=== PATIENT | female | born 1995 | race African-American/Black ===

== ENCOUNTER 2019-11-04 13:43 | Emergency (ER) | payer OTHER ==
--- OUTSIDE RECORDS SUMMARY | 2019-11-04 13:54 | XMS REPORT ---
:1995 Author Organization [facility] t Address [address] Brooks [address] [place] [address] Care Team Providers Name Role Phone Unavailable Unavailable Unavailable Problems This patient has no known problems. Allergies, Adverse Reactions, Alerts This patient has no known allergies or adverse reactions. Medications This patient has no known medications.
--- OUTSIDE RECORDS SUMMARY | 2019-11-04 13:54 | XMS REPORT | Summary of Care ---
:1995 Author Organization [facility] Address [address] [place] [address] Care Team Providers Name Role Phone George Grande CORRECTION OFFICER Primary Care Provider Reason for Visit Reason Comments LAB WORK Encounter Details Date Type Department Care Team Description 02/03/2019 Case Management [facility] Sallie Gamboa FN P LAB WORK [address] [facility], [phone] [facility] floor [phone] [place] [address] Allergies No Known Allergiesdocumented as of this encounter (statuses as of 02/03/2019) Medications Medication Sig Dispensed Refills Start Date End Date Status Iron, Cbn & Take 1 tablet by 30 tablet 3 08/19/2017 Active Ocvb-HV-E99-C-DSS mouth daily. 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 Since the patient is subgroup of A with an anti-A1 antibody, the patient will be transfused with group O RBCs if needed. - For assistance, please contact the Tra nsfusion Medicine service. Multiparity 12/09/2018 12/30/2018 Normal labor 11/04/2017 11/12/2017 40 weeks gestation of 11/04/2017 11/13/19 18 Maternal anemia in , antepartum 11/04/2017 11/12/2017 Liveborn , of mackey , born in hospital by 11/04/2017 11/12/2017 delivery Non-reassuring heart tones complicating , 12/201711/12/2017 antepartum -induced hypertension in third trimester 11/03/2016 05/13/2017 Other and unspecified uterine inertia, antepartum 11/03/2016 05/13/2017 (normal spontaneous vaginal delivery) 11/03/2016 05/13/2017 PROM (premature rupture of membranes) 11/02/2016 Elevated blood pressure 11/02/2016 11/04/2017 Obesity (BMI 30-39.9) 11/02/2016 11/04/2017 High risk , antepartum 10/30/2016 12/31/19 19 Insufficient care, third trimester 10/30/2016 12/30/2018 Polyhydramnios, antepartum complication, third trimester, no t 10/30/2016 11/04/2017 applicable or unspecified fetus documented as of this encounter (statuses as of 02/03/2019) Immunizations Name Administration Dates Next Due Tdap 10/03/2016 documented as of this encounter Social History Tobacco Use Types Packs/Day Years Used Date Never Smoker Smokeless Tobacco: Never Used Alcohol Use Drinks/Week oz/Week Comments No 0 Standard drinks or equivalent 0.0 Estimated Date of Delivery Comments Yes 08/17/2019 Based on last menstr ual period of 11/10/2018 (Exact Date) Sex Assigned at Date Recorded Not on file Job Start Date Occupation Industry Not on file Not on file Not on file Travel History Travel Start Travel End No recent travel history available. documented as of this encounter Last Filed Vital Signs Not on filedocumented in this encounter Plan of Treatment Date Type Specialty Care Team Description 03/23/2019 Recruit Instructor Visit Maternal Medicine 1, [facility] Us g Room Name Type Priority Associated Diagnoses Order S chedule FIRST TRIMESTER LAB Routine Encounter for nuchal 1 Oc currences starting TRISOMY SCRN translucency testing 019 until 03/06/2019 Health Maintenance Due Date Last Done Comments PNEUMOCOCCAL 0-64 YEARS 09/05/2003 COMBINED SERIES (1 of 3 - PCV13) MENINGOCOCCAL B VACCINES (1 09/05/2007 of 2 - Risk Bexsero 2-dose series) HPV VACCINES (1 - Female 2012 3-dose series) INFLUENZA VACCINE 03/01/2019 CHLAMYDIA SCREENING 12/10/2019 12/09/2018, 10/01/2017, 05/13/2017, Additional history exists PAP SMEAR 12/09/2021 12/09/2018 DTaP,Tdap,and Td Vaccines (2 10/03/2026 10/03/2016 - Td) MENINGOCOCCAL VACCINE Aged Out No longer eligible based on patient 's age to complete this topic documented as of this encounter Results Not on filedocumented in this encounter Visit Diagnoses Diagnosis Encounter for nuchal translucency testin g - Primary Other specified screening documented in this encounter Insurance Payer Benefit Plan / Subscriber ID Effective Phone Address T [facility] xxxxxxxxx 2019-Prese [address] BOX Medic aid HEALTH CHOICE - [place] [id number] 1 MANAGED MEDICAID [place], [place]ID [phone] documented as of this encounter Advance Directives Name Relationship Healthcare Agent Communication Relationship Billiesosa Pérez Mother Primary healthcare agent
--- OUTSIDE RECORDS SUMMARY | 2019-11-04 13:54 | XMS REPORT | Summary of Care ---
:1995 Author Organization [facility] Address [address] [place] [address] Care Team Providers Name Role Phone George Grande Tao ADAMSP Primary Care Provider Reason for Visit Reason Comments ULTRASOUND (Routine) Status Reason Specialty Diagnoses / Referred By Referred To Procedures Contact Contact Closed Maternal Diagnoses of child Renetta Nuñez, Medicine Procedures CONSULT MATERNAL MEDICINE ULTRASOUND Preferred Location: Tom COSTELLO [address] [address] Encounter Details Date Type Department Care Team Description 02/03/2019 Consumer Science Teacher Visit [facility] Women's Esteban, Marleny Mishra MD [address] [facility] [id number] [place] [phone] Uterine size-date discrepancy in first t rimester; [facility] [place] [address] [facility] [id number] [place], [place] [phone] Encounter for other screening for geneti c and chromosomal anomalies [place] [address], [facility] Us Room [address] [facility], 3rd [place] [address] Allergies No Known Allergiesdocumented as of this encounter (statuses as of 02/03/2019) Medications Medication Sig Dispensed Refills Start Date End Date Status Iron, Cbn & Take 1 tablet by 30 tablet 3 08/19/2017 Active Cwwt-KY-L54-C-DSS mouth daily. (FERRALET 90 DUAL-IRON DELIVERY) 90-1-12-50 fa-ey-wgh-mg per tablet documented as of this encounter [...] Date Type Specialty Care Team Description 03/23/2019 Consumer Science Teacher Visit Maternal Medicine 1, [facility] Us g Room Health Maintenance Due Date Last Done Comments [...] this topic documented as of this encounter Procedures Procedure Name Priority Date/Time Associated Diagnosis Comme nts FIRST TRIMESTER Routine 02/03/2019 10:25 AM ULTRASOUND CDT documented in this encounter Results FIRST TRIMESTER ULTRASOUND (02/03/2019 10:25 AM CDT) Specimen documented in this encounter Visit Diagnoses Diagnosis Uterine size-date discrepancy in first t rimester Uterine size date discrepancy, antepartu m condition or complication Encounter for other screening for geneti c and chromosomal anomalies documented in this encounter Insurance Payer Benefit Plan / Subscriber ID Effective Phone Address T [facility] xxxxxxxxx 2019-Prese P.O. BOX Medic aid HEALTH CHOICE - HEALTH CHOICE nt [id number] 1 MANAGED MEDICAID [place], [place] [phone] documented as of this encounter Advance Directives Name Relationship Healthcare Agent Communication Relationship Marlin Elisa Mother Primary healthcare agent
--- OUTSIDE RECORDS SUMMARY | 2019-11-04 13:54 | XMS REPORT | Summary of Care ---
:1995 Author Organization [facility] Address [address] [place] [address] Care Team Providers Name Role Phone George Grande [facility] Primary Care Provider Reason for Visit Reason Comments LAB WORK Encounter Details Date Type Department Care Team Description 02/03/2019 Wet Room Supervisor [facility] [address] [facility] [id number] [place], [place] [phone] Encounter for nuchal [facility] [place] [address] [facility] [id number] [place] [phone] translucency [facility], [facility] [address] [facility], 7th [place] [address] Allergies No Known Allergiesdocumented as of this encounter (statuses as of 02/03/2019) Medications Medication Sig Dispensed Refills Start Date End Date Status Iron, Cbn & Take 1 tablet by 30 tablet 3 08/19/2017 Active Sabj-GN-D75-C-DSS mouth daily. (FERRALET 90 DUAL-IRON DELIVERY) 90-1-12-50 nm-dn-iaa-mg per tablet documented as of this encounter [...] anemia in , antepartum 11/04/2017 11/12/2017 Liveborn infant, of mackey , born in hospital by [...] Date Type Specialty Care Team Description 03/23/2019 Wet Room Supervisor Visit Maternal Medicine 1, [facility] Us g Room Health Maintenance Due Date [...] Diagnosis Encounter for nuchal translucency testin g Other specified screening documented in this encounter Insurance Payer Benefit Plan / Subscriber ID Effective Phone Address T ype [facility] xxxxxxxxx 2019-Prese P.O. BOX Medic aid HEALTH CHOICE - HEALTH CHOICE nt [id number] 1 MANAGED MEDICAID [place], [place] [phone] documented as of this encounter Advance Directives Name Relationship Healthcare Agent Communication Relationship Lasosa Pérez Mother Primary healthcare agent
--- OUTSIDE RECORDS SUMMARY | 2019-11-04 13:54 | XMS REPORT | Summary of Care ---
:[address] [facility] Address [address] [place] [address] Care Team Providers Name Role Phone George Grande [facility] Primary Care Provider Reason for Visit Reason Comments Assessment Encounter Details Date Type Department Care Team Description 03/04/2019 Telephone [facility] George Huthcison [facility] Assessment [address] [facility] [address] [place] [address] [place] [address] [phone] Allergies No Known Allergiesdocumented as of this encounter (statuses as of 03/04/2019) Medications Medication Sig Dispensed Refills Start Date End Date Status Iron, Cbn & Take 1 tablet by 30 tablet 3 08/19/2017 Active Npna-OO-Y92-C-DSS mouth daily. (FERRALET 90 DUAL-IRON DELIVERY) 90-1-12-50 zl-tj-qgh-mg per tablet documented as of this encounter (statuses as of 03/04/2019) Active Problems Problem Noted Date Trichomoniasis 12/11/2018 Previous delivery affecting , antepa rtum 12/09/2018 Sickle cell trait 12/09/2018 of child 12/09/2018 Obesity in 12/09/2018 Estimated Date of Delivery Comments Yes 08/17/2019 Based on last menstr ual period of 11/10/2018 (Exact Date) documented as of this encounter (statuses as of 03/04/2019) Resolved Problems Problem Noted Date Resolved Date [...] as of this encounter (statuses as of 03/04/2019) Immunizations Name Administration Dates Next Due Tdap [...] Date Type Specialty Care Team Description 03/23/2019 Painter Set Visit Maternal Medicine 1, [facility] Us g Room Health Maintenance Due Date Last Done Comments PNEUMOCOCCAL 0-64 YEARS 09/05/2003 COMBINED SERIES (1 of 3 - PCV13) MENINGOCOCCAL B VACCINES (1 09/05/2007 of 2 - Risk Bexsero 2-dose series) HPV VACCINES (1 - Female 2012 3-dose series) INFLUENZA VACCINE (#1) 2019 CHLAMYDIA SCREENING 12/10/2019 12/09/2018, 10/01/2017, 05/13/2017, Additional history exists PAP SMEAR 12/09/2021 12/09/2018 DTaP,Tdap,and Td Vaccines (2 10/03/2026 10/03/2016 - Td) MENINGOCOCCAL VACCINE Aged Out No longer eligible based on patient 's age to complete this topic documented as of this encounter Results Not on filedocumented in this encounter Insurance Payer Benefit Plan / Subscriber ID Effective Phone Address T [facility] xxxxxxxxx 2019-Prese P.O. BOX Medic aid HEALTH CHOICE - HEALTH CHOICE nt [id number] 1 MANAGED MEDICAID [place], [place]ID [phone] documented as of this encounter Advance Directives Name Relationship Healthcare Agent Communication Relationship Reynaaminah Pérez Mother Primary healthcare agent
--- OUTSIDE RECORDS SUMMARY | 2019-11-04 13:55 | XMS REPORT | Summary of Care ---
:1995 Author Organization [facility] [place] Address [address] [place] [address] Care Team Providers Name Role Phone George Grande Primary Care Provider Reason for Visit Reason Comments Care Encounter Details Date Type Department Care Team Description 08/10/2019 Routine [facility]- George Grande upervision of high risk in third trimester (Primary Dx); Visit ÁNGEL Marina Previous delivery affecting pre gnancy, antepartum; [address] (vaginal after ) trial; [place], [place] Nadiya Sickle cell trait; [address] [place], [place] GBS (group B Streptococcus c arrier), +RV culture, currently ; [phone] [address] of child; [phone] Multiparity; [phone] Obesity in preg mundo (Fax) Allergies No Known Allergiesdocumented as of this encounter (statuses as of 08/10/2019) Medications Medication Sig Dispensed Refills Start Date End Date Status Iron, Cbn & Take 1 tablet by 30 tablet 3 08/19/2017 Active Fcyr-RQ-O88-C-DSS mouth daily. (FERRALET 90 DUAL-IRON DELIVERY) 90-1-12-50 br-ca-jma-mg per tablet ferrous sulfate 325 mg Take 1 tablet by 60 tablet 3 07/24/2019 Active (65 mg iron) mouth 2 (two) tabletIndications: times daily. Anemia of mother in , condition ascorbic acid, vitamin Take 1 tablet by 90 tablet 3 07/24/2019 Active C, 500 mg mouth 3 (three) tabletIndications: times daily. Anemia of mother in , condition documented as of this encounter (statuses as of 08/10/2019) Active Problems Problem Noted Date GBS (group B Streptococcus carrier), +RV culture, curr ently 07/24/2019 Overview: Address in labor and delivery. Desires (vaginal after ) trial 05/31 Type A blood, Rh positive 05/11/2019 Trichomoniasis 12/11/2018 Previous delivery affecting , antepa rtum 12/09/2018 Sickle cell trait 12/09/2018 of child 12/09/2018 Multiparity 12/09/2018 Obesity in 12/09/2018 Supervision of high risk in third trimester 10/30/2016 Estimated Date of Delivery Comments Yes 08/17/2019 Based on last menstr ual period of 11/10/2018 (Exact Date) documented as of this encounter (statuses as of 08/10/2019) Resolved Problems Problem Noted Date Resolved Date [...] please contact the [facility] service. Normal labor 11/04/2017 11/12/2017 40 weeks gestation [...] 11/02/2016 11/04/2017 Obesity (BMI 30-39.9) 11/02/2016 11/04/2017 Insufficient care, third trimester 10/30/2016 12/30/2018 Polyhydramnios, antepartum complication, third trimester, no t 10/30/2016 11/04/2017 applicable or unspecified fetus documented as of this encounter (statuses as of 08/10/2019) Immunizations Name Administration Dates Next Due Tdap 05/25/2019, 10/03/2016 documented as of this encounter Social [...] of this encounter Last Filed Vital Signs Vital Sign Reading Time Taken Comments Blood Pressure 117/78 08/10/2019 3:02 PM DENSITOMETER READER Pulse 96 08/10/2019 3:02 PM DENSITOMETER READER Temperature 36.6 C (97.9 F) 08/10/2019 3:02 PM DENSITOMETER READER Respiratory Rate 16 08/10/2019 3:02 PM DENSITOMETER READER Oxygen Saturation - - Inhaled Oxygen Concentration - - Weight 115.7 kg (255 lb 2 oz) 08/10/2019 3:02 PM DENSITOMETER READER Height 167.6 cm (5' 6") 08/10/2019 3:02 PM DENSITOMETER READER Body Mass Index 41.18 08/10/2019 3:02 PM DENSITOMETER READER documented in this encounter Progress Notes George Grande R, MACHINE UMBRELLA TIPPER - 08/10/2019 2:15 PM CST Chief complaint: Chief Complaint Patient presents with Care HPI CC: Follow Up Visit Karen Pérez is a 23 year old, , Black or female. Patient's last menstrual period was 11/10/2018 (exact date). She is 39w0d with an intrauterine . Her estimateddate of delivery is 08/17/2019, by Last Menstrual Period. She has no complaints today. She reports +FM and denies contractions, LOF and bleeding today. Reviewed OB/ER, PIH, labor and movement precautions. Encouraged patient to go to [facility] for any signs and symptoms of labor (regular contractions, LOF, vaginal bleeding or decrease movement. Patient denies current or past physical, sexual or emotional abuse. 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 Sickle cell anemia Sicle Cell Trait Family History Problem Relation Age of Onset Asthma Mother Asthma Sister Asthma Maternal Aunt Asthma Maternal Uncle Diabetes Maternal Uncle Asthma Paternal Aunt Asthma Paternal Uncle Asthma Maternal Grandmother Diabetes Maternal Grandmother Asthma Maternal Grandfather Arthritis NoFHx defects NoFHx Breast Cancer NoFHx Colon Cancer NoFHx Ovarian Cancer NoFHx Uterine Cancer NoFHx Cancer NoFHx Depression NoFHx Genetic NoFHx Heart NoFHx High cholesterol NoFHx Hypertension NoFHx Mental retardation NoFHx Neurological NoFHx Osteoporosis NoFHx Psychiatry NoFHx Family Status Relation Name Status Mo Alive Sis Alive Fa (Not Specified) unknown history Bro Alive MAunt (Not Specified) MUnc (Not Specified) PAunt (Not Specified) PUnc (Not Specified) MGMo Alive MGFa Alive NoFHx (Not Specified) Past Surgical History: Procedure Laterality Date SECTION N/A 11/04/2017 Surgeon: Bonita Leiva MD; Location: [facility] Labor and Delivery OR Location [place] ANESTH,[facility] AREA SURGERY Social History Socioeconomic History Marital status: Single Spouse name: Not on file Number of children: Not on file Years of education: Not on file Highest education level: Not on file Occupational History Occupation: student Social Needs Financial resource strain: Not on file Food insecurity: Worry: Not on file Inability: Not on file Transportation needs: Medical: Not on file Non-medical: Not on file Tobacco Use Smoking status: Never Smoker Smokeless tobacco: Never Used Substance and Sexual Activity Alcohol use: No Alcohol/week: 0.0 standard drinks Drug use: No Sexual activity: Yes Partners: Male control/protection: None Comment: last sexual intercourse 11/30/2018 Lifestyle Physical activity: Days per week: Not on file Minutes per session: Not on file Stress: Not on file Relationships Social connections: Talks on phone: Not on file Gets together: Not on file Attends scientologist service: Not on file Active member of club or organization: Not on file Attends meetings of clubs or organizations: Not on file Relationship status: Not on file Intimate partner violence: Fear of current or ex partner: Not on file Emotionally abused: Not on file Physically abused: Not on file Forced sexual activity: Not on file Other Topics Concern Service Not Asked Blood Transfusions Not Asked Caffeine Concern Not Asked Occupational Exposure Not Asked Hobby Hazards Not Asked Sleep Concern Not Asked Stress Concern Not Asked Weight Concern Not Asked Special Diet Not Asked Back Care Not Asked Exercise Not Asked Bike Helmet Not Asked Seat Belt Yes Self-Exams Not Asked Social History Narrative Lives with mom. No domestic abuse or violence. No cats. Nondenominational: Gnosticist Social History Substance and Sexual Activity Sexual Activity Yes Partners: Male control/protection: None Comment: last sexual intercourse 11/30/2018 Labs Labs are pending. Radiology No new radiology. Allergies Karen has No Known Allergies. Medications Karen has a current medication list which includes the following prescription(s): ascorbic acid (vitamin c), ferrous sulfate, and iron, cbn & micd-lm-h14-c-dss. Review of Systems Eyes: Negative for visual disturbance. Cardiovascular: Negative for leg swelling. Gastrointestinal: Negative for abdominal pain, nausea and vomiting. Genitourinary: Negative for vaginal bleeding, vaginal discharge and pelvic pain. Neurological: Negative for headaches. BP 117/78 (BP Location: Right arm, Patient Position: Sitting, BP CUFF SIZE: Adult Medium) | Pulse 96 | Temp 36.6 C (97.9 F) (Oral) | Resp 16 | Ht 5' 6" (1.676 m) | Wt 255 lb 2 oz (115.7 kg) |LMP 11/10/2018 (Exact Date) | BMI 41.18 kg/m Pregravid BMI: 39.4 Physical Exam PHYSICAL: General Exam: Neurological: Normal Abdomen: Normal Extremities: Normal Pelvic Exam: Uterus: 40cm Weeks Assessment/Plan Supervision of high risk in third trimester (primary encounter diagnosis) Previous delivery affecting , antepartum Desires (vaginal after ) trial Sickle cell trait GBS (group B Streptococcus carrier), +RV culture, currently of child Multiparity Comment: Routine Visit Plan: POCT URINALYSIS W SPECIFIC GRAVITY Denies zika virus risk, signs and symptoms such as fever,rash,joint pain, conjunctivitis (red eyes), muscle pain, headaches; outside [place] travel to areas affected by zika, and FOB exposure to zika.Educated on use of mosquito repellent. Obesity in Comment: See BMI Plan: Patient encouraged to limit weight gain and sensible diet. Return to clinic in 3 weeks for PP visit. Discussed treatment options. Medications as ordered. Reviewed patient instructions and provided printed copy. This visit did not involve counseling and coordination that comprised more than 50% of the visit time. ÁNGEL Gonzalez 08/10/2019 3:29 PM ITOMETER READER documented in this encounter Plan of Treatment Health Maintenance Due Date Last Done Comments WELL CARE VISIT: -09/04/2009 YEARS (yearly) HPV VACCINES (1 - Female 06/12/2020 Postpon ed from 2-dose series) 2008 (Preg nant or ) MENINGOCOCCAL B VACCINES (1 06/21/2020 Post poned from of 2 - Risk Bexsero 2-dose 09/04 ( or series) ) INFLUENZA VACCINE (#1) 2020 Postponed from 03/01/2019 (Refu sed) CHLAMYDIA SCREENING 07/22/2020 07/22/2019, 12/09/2018, 10/01/2017, Additional history exists PAP SMEAR 12/09/2021 12/09/2018 DTaP,Tdap,and Td Vaccines 05/25/2029 05/25/2019, 10/03/2016 (3 - Td) MENINGOCOCCAL VACCINE Aged Out No longer eligible based on patient 's age to complete this topic PNEUMOCOCCAL 0-64 YEARS Aged Out No longe r eligible COMBINED SERIES based on patient 's age to complete this topic documented as of this encounter Procedures Procedure Name Priority Date/Time Associated Diagnosis Comme nts POCT URINALYSIS Routine 08/10/2019 3:06 PM Supervision of [facility] h Results for this DENSITOMETER READER risk in procedure are in third trimester the results section. documented in this encounter Results POCT URINALYSIS W SPECIFIC GRAVITY (08/10/2019 3:06 PM DENSITOMETER READER) Pathologist Sig nature POCT U SP GRAV . 1.005 - 1.025 mg/dl POCT PH U . 5 - 8 mg/dl POCT U LEUK EST . Negative - Negative POCT U NIT . Negative - Negative POCT U PROT trace Negative - Negative POCT U GLU neg Negative - Negative POCT U KETONE . Negative - Negative POCT U UROBILI . 0.2 - 1 mg/dl POCT U BILI . Negative - Negative POCT U BLD . Negative - Negative POCT U COLOR . POCT U APPEAR . Specimen Urine - URINE, CLEAN CATCH documented in this encounter Visit Diagnoses Diagnosis Supervision of high risk in ird trimester - Primary Unspecified high-risk Previous delivery affecting pre gnancy, antepartum Previous delivery, antepartum c ondition or complication Desires (vaginal after dejah an) trial Previous delivery, unspecified as to episode of care or not applicable Sickle cell trait Sickle-cell trait GBS (group B Streptococcus carrier), +RV culture, currently Supervision of other high-risk of child Family disruption due to of family member Multiparity Obesity in Obesity complicating , childbir , or the puerperium, unspecified as to episode of care or not applicable documented in this encounter Insurance Payer Benefit Plan / Subscriber ID Effective Phone Address [facility] xxxxxxxxx 2019-Mary Alice [address] Medic aid HEALTH CHOICE - [place] [id number] 1 MANAGED MEDICAID [place], [place] MED[place]ID [phone] documented as of this encounter Advance Directives Name Relationship Healthcare Agent Communication Relationship Billiesosa Pérez Mother Primary healthcare agent
--- OUTSIDE RECORDS SUMMARY | 2019-11-04 13:55 | XMS REPORT | Summary of Care ---
:1995 Author Organization [facility] [employer] Address [address] [place] [address] Care Team Providers Name Role Phone George Grande Primary Care Provider Reason for Visit Reason Comments Care Encounter Details Date Type Department Care Team Description 08/10/2019 Routine [facility]- George Grande upervision of high risk in third trimester (Primary Dx); Visit ÁNGEL Marina Previous delivery affecting pre gnancy, antepartum; [address] Desires (vaginal after ) trial; [place], [place] Nadiya Sickle cell trait; [address] [place], [place] GBS (group B Streptococcus c arrier), +RV culture, currently ; [phone] [address] of child; [phone] Multiparity; [phone] Obesity in preg mundo (Fax) Allergies No Known Allergiesdocumented as of this encounter (statuses as of 08/11/2019) Medications Medication Sig Dispensed Refills Start Date End Date Status Iron, Cbn & Take 1 tablet by 30 tablet 3 08/19/2017 Suspended Azty-GF-X23-C-DSS mouth daily. (FERRALET 90 DUAL-IRON DELIVERY) 90-1-12-50 hg-lg-mbn-mg per tablet Additional information ferrous sulfate 325 mg (65 mg Take 1 tablet by 60 tablet 3 Suspended iron) tabletIndications: Anemia mouth 2 (two) times of mother in , daily. condition Additional information ascorbic acid, vitamin C, 500 Take 1 tablet by 90 tablet 3 Suspended mg tabletIndications: Anemia of mouth 3 (three) mother in , times daily. condition Additional information documented as of this encounter (statuses as of 08/11/2019) Active Problems Problem Noted Date 39 weeks gestation of 08/10/2019 GBS (group B Streptococcus carrier), +RV culture, curr ently 07/24/2019 Overview: Address in labor and delivery. Desires (vaginal after ) trial 05/31 Type A blood, Rh positive 05/11/2019 Trichomoniasis 12/11/2018 Previous delivery affecting , antepa rtum 12/09/2018 Sickle cell trait 12/09/2018 of child 12/09/2018 Multiparity 12/09/2018 Obesity in 12/09/2018 Supervision of high risk in third trimester 10/30/2016 Comments Yes documented as of this encounter (statuses as of 08/11/2019) Resolved Problems Problem Noted Date Resolved Date [...] as of this encounter (statuses as of 08/11/2019) Immunizations Name Administration Dates Next Due Tdap 05/25/2019, 10/03/2016 documented as of this encounter Social History Tobacco Use Types Packs/Day Years Used Date Never Smoker Smokeless Tobacco: Never Used Alcohol Use Drinks/Week oz/Week Comments No 0 Standard drinks or equivalent 0.0 Comments Yes Sex Assigned at Date Recorded Not on file Job Start Date Occupation Industry Not on file Not on file Not on file Travel History Travel Start Travel End No recent travel history available. documented as of this encounter Last Filed Vital Signs Vital Sign Reading Time Taken Comments Blood Pressure 117/78 08/10/2019 3:02 PM VP PROJECT Pulse 96 08/10/2019 3:02 PM VP PROJECT Temperature 36.6 C (97.9 F) 08/10/2019 3:02 PM VP PROJECT Respiratory Rate 16 08/10/2019 3:02 PM VP PROJECT Oxygen Saturation - - Inhaled Oxygen Concentration - - Weight 115.7 kg (255 lb 2 oz) 08/10/2019 3:02 PM VP PROJECT Height 167.6 cm (5' 6") 08/10/2019 3:02 PM VP PROJECT Body Mass Index 41.18 08/10/2019 3:02 PM VP PROJECT documented in this encounter Progress Notes George Grande, ÁNGEL - 08/10/2019 2:15 PM CST Chief complaint: [...] movement precautions. Encouraged patient to go to [facility] for any signs and symptoms of labor [...] oz (3.827 kg) M SEC EPI DEC 1 Term 11/02/16 38w3d 7 lb 13.2 oz [...] N/A 11/04/2017 Surgeon: Bonita Leiva MD; Location: [facility] Labor and Delivery OR Location [place] ANESTH,KNEE AREA SURGERY Social History Socioeconomic History [...] file Gets together: Not on file Attends muslim service: Not on file Active member of [...] No domestic abuse or violence. No cats. Orthodoxy: Rastafarian Social History Substance and Sexual Activity Sexual Activity Yes Partners: Male control/protection: None Comment: last sexual intercourse 11/30/2018 Labs Labs are pending. Radiology No new radiology. Allergies Karen has No Known Allergies. Medications Karen has a current medication list which includes the following prescription(s): ascorbic acid (vitamin c), ferrous sulfate, and iron, cbn & qhtd-yk-c43-c-dss. Review of Systems Eyes: Negative for visual [...] visit time. ÁNGEL Gonzalez 08/10/2019 3:29 PM PROJECT documented in this encounter Plan of Treatment [...] URINALYSIS Routine 08/10/2019 3:06 PM Supervision of maya orellana Results for this VP PROJECT risk in procedure are in third trimester the results section. documented in this encounter Results POCT URINALYSIS W SPECIFIC GRAVITY (08/10/2019 3:06 PM VP PROJECT) Pathologist Sig nature POCT U SP GRAV [...] Diagnoses Diagnosis Supervision of high risk in th ird trimester - Primary Unspecified high-risk Previous [...] Multiparity Obesity in Obesity complicating , childbir th, or the puerperium, unspecified as to episode of care or not applicable documented in this encounter Insurance Payer Benefit Plan / Subscriber ID Effective Phone Address T e [facility] xxxxxxxxx 2019-Mary Alice [address] Medic aid HEALTH CHOICE - HEALTH CHOICE [id number] 1 MANAGED MEDICAID [place], [place] MED[place]ID [phone] documented as of this encounter Advance Directives Name Relationship Healthcare Agent Communication Relationship Lasosa Pérez Mother Primary healthcare agent
--- OUTSIDE RECORDS SUMMARY | 2019-11-04 13:55 | XMS REPORT | Summary of Care ---
:1995 Author Organization [facility] [employer] Address [address] [place] [address] Care Team Providers Name Role Phone George Grande Primary Care Provider Reason for Visit Reason Comments Care Encounter Details Date Type Department Care Team Description 08/10/2019 Routine [facility]- George Grande upervision of high risk in third trimester (Primary Dx); Visit ÁNGEL Marina Previous delivery affecting pre gnancy, antepartum; [address] Desires (vaginal after ) trial; [place], [place] Nadi[place] Sickle cell trait; [address] [place], [place] GBS (group B Streptococcus c arrier), +RV culture, currently ; [phone] [address] of child; [phone] Multiparity; [phone] Obesity in preg mundo (Fax) Allergies No Known Allergiesdocumented as of this encounter (statuses as of 08/11/2019) Medications Medication Sig Dispensed Refills Start Date End Date Status Iron, Cbn & Take 1 tablet by 30 tablet 3 08/19/2017 Suspended Lajz-HF-V36-C-DSS mouth daily. (FERRALET 90 DUAL-IRON DELIVERY) 90-1-12-50 rr-we-yld-mg per tablet Additional information ferrous sulfate 325 [...] Comments Blood Pressure 117/78 08/10/2019 3:02 PM MEAT APPRENTICE Pulse 96 08/10/2019 3:02 PM MEAT APPRENTICE Temperature 36.6 C (97.9 F) 08/10/2019 3:02 PM MEAT APPRENTICE Respiratory Rate 16 08/10/2019 3:02 PM MEAT APPRENTICE Oxygen Saturation - - Inhaled Oxygen Concentration - - Weight 115.7 kg (255 lb 2 oz) 08/10/2019 3:02 PM MEAT APPRENTICE Height 167.6 cm (5' 6") 08/10/2019 3:02 PM MEAT APPRENTICE Body Mass Index 41.18 08/10/2019 3:02 PM MEAT APPRENTICE documented in this encounter Progress Notes George [...] movement precautions. Encouraged patient to go to [facility] for any signs and symptoms of [...] N/A 11/04/2017 Surgeon: Bonita Leiva MD; Location: [facility] Labor and Delivery OR Location [place] [facility]EST[place],[facility] [facility]A SURGERY Social History Socioeconomic History [...] file Gets together: Not on file Attends congregational service: Not on file Active member of [...] No domestic abuse or violence. No cats. Mandaeism: Taoism Social History Substance and Sexual Activity Sexual Activity Yes Partners: Male control/protection: None Comment: last sexual intercourse 11/30/2018 Labs Labs are pending. Radiology No new radiology. Allergies Karen has No Known Allergies. Medications Karen has a current medication list which includes the following prescription(s): ascorbic acid (vitamin c), ferrous sulfate, and iron, cbn & mdqw-ij-l34-c-dss. Review of Systems Eyes: Negative for visual [...] visit time. ÁNGEL Gonzalez 08/10/2019 3:29 PM APPRENTICE documented in this encounter Plan of Treatment [...] Supervision of maya orellana Results for this MEAT APPRENTICE risk in procedure are in third trimester the results section. documented in this encounter Results POCT URINALYSIS W SPECIFIC GRAVITY (08/10/2019 3:06 PM MEAT APPRENTICE) Pathologist Sig nature POCT U SP GRAV [...] Subscriber ID Effective Phone Address T e [facility] xxxxxxxxx 2019-Mary [address] Medic aid HEALTH CHOICE - HEALTH CHOICE [id number] 1 MANAGED MEDICAID [place], [place] [phone] documented as of this encounter Advance Directives Name Relationship Healthcare Agent Communication Relationship Lasosa Pérez Mother Primary healthcare agent
--- OUTSIDE RECORDS SUMMARY | 2019-11-04 13:56 | XMS REPORT | Summary of Care ---
:1995 Author Organization [facility] Address [address] [place] [id number] Care Team Providers Name Role Phone George Grande VOICE NETWORK ADMINISTRATOR Primary Care Provider Reason for Visit Reason Comments Care Encounter Details Date Type Department Care Team Description 07/22/2019 Routine [facility]- George Grande upervision of high risk in third trimester (Primary Dx); Visit ÁNGEL Marina Previous delivery affecting pre gnancy, antepartum; [address] Desires (vaginal after ) trial; [place], [place]; [address] [place], [place] Obesity in [phone] Allergies No Known Allergiesdocumented as of this encounter (statuses as of 07/22/2019) Medications Medication Sig Dispensed Refills Start Date End Date Status Iron, Cbn & Take 1 tablet by 30 tablet 3 08/19/2017 Active [id number]-C-DSS mouth daily. (FERRALET 90 DUAL-IRON DELIVERY) 90-1-12-50 hr-ra-lyf-mg per tablet documented as of this encounter (statuses as of 07/22/2019) Active Problems Problem Noted Date Desires (vaginal after ) trial 05/31 Type [...] as of this encounter (statuses as of 07/22/2019) Resolved Problems Problem Noted Date Resolved Date [...] as of this encounter (statuses as of 07/22/2019) Immunizations Name Administration Dates Next Due Tdap [...] Sign Reading Time Taken Comments Blood Pressure 126/80 07/22/2019 11:07 AM ROLLED MATERIALS WORKER Pulse 96 07/22/2019 11:07 AM ROLLED MATERIALS WORKER Temperature 36.3 C (97.4 F) 07/22/2019 11:07 AM ROLLED MATERIALS WORKER Respiratory Rate 16 07/22/2019 11:07 AM ROLLED MATERIALS WORKER Oxygen Saturation - - Inhaled Oxygen Concentration - - Weight 114.3 kg (252 lb 1 oz) 07/22/2019 11:07 AM ROLLED MATERIALS WORKER Height 167.6 cm (5' 6") 07/22/2019 11:07 AM ROLLED MATERIALS WORKER Body Mass Index 40.68 07/22/2019 11:07 AM ROLLED MATERIALS WORKER documented in this encounter Progress Notes George Grande FNP - 07/22/2019 11:00 AM CST Chief complaint: Chief Complaint Patient presents with Care HPI CC: Follow Up Visit Karen Pérez is a 23 year old, , Black or female. Patient's last menstrual period was 11/10/2018 (exact date). She is 36w2d with an intrauterine . Her estimateddate of delivery is 08/17/2019, by Last Menstrual Period. She has no complaints today. She reports +FM and denies contractions, LOF and bleeding today. Patient denies current or past physical, sexual [...] N/A 11/04/2017 Surgeon: Bonita Leiva MD; Location: [facility] Labor and Delivery OR Location [place] [facility] Social History Socioeconomic History [...] file Gets together: Not on file Attends restorationist service: Not on file Active member of [...] No domestic abuse or violence. No cats. Scientologist: Jew Social History Substance and Sexual Activity Sexual Activity Yes Partners: Male control/protection: None Comment: last sexual intercourse 11/30/2018 Labs Labs are pending. Radiology No new radiology. Allergies Karen has No Known Allergies. Medications Karen has a current medication list which includes the following prescription(s): iron, cbn & fert-as-c72-c-dss. Review of Systems Eyes: Negative for visual disturbance. Cardiovascular: Negative for leg swelling. Gastrointestinal: Negative for abdominal pain, nausea and vomiting. Genitourinary: Negative for vaginal bleeding, vaginal discharge and pelvic pain. Neurological: Negative for headaches. BP 126/80 (BP Location: Right arm, Patient Position: Sitting, BP CUFF SIZE: Adult Medium) | Pulse 96 | Temp 36.3 C (97.4 F) (Oral) | Resp 16 | Ht 5' 6" (1.676 m) | Wt 252 lb 1 oz (114.3 kg) |LMP 11/10/2018 (Exact Date) | BMI 40.68 kg/m Pregravid BMI: 39.4 Physical Exam PHYSICAL: General Exam: Neurological: Normal Abdomen: Normal Extremities: Normal Pelvic Exam: Uterus: 37cm Weeks Assessment/Plan Supervision of high risk in third trimester (primary encounter diagnosis) Previous delivery affecting , antepartum Desires (vaginal after ) trial Multiparity Comment: Routine Visit Plan: POCT URINALYSIS W SPECIFIC GRAVITY, GROUP B STREPTOCOCCUS BY PCR, GC & CHLAMYDIA AMPLIFIED ASSAY, CBC WITH DIFF, CBC WITH DIFFERENTIAL Denies zika virus risk, signs and symptoms such as fever,rash,joint pain, conjunctivitis (red eyes), muscle pain, headaches; outside [place] travel to areas affected by zika, and FOB exposure to zika.Educated on use of mosquito repellent. Obesity in Comment: See BMI Plan: Patient encouraged to limit weight gain and sensible diet. Return to clinic in 3 weeks. Discussed treatment options. Medications as ordered. Reviewed patient instructions and provided printed copy. This visit did not involve counseling and coordination that comprised more than 50% of the visit time. ÁNGEL Gonzalez 07/22/2019 12:41 PM ED MATERIALS WORKER documented in this encounter Plan of Treatment Date Type Specialty Care Team Description 07/29/2019 Routine Visit OB Satellites Tao Grande FNP [address] [phone] Name Type Priority Associated Diagnoses Date/Ti me GROUP B STREPTOCOCCUS BY LAB Routine Supervision of h igh risk 07/22/2019 11:55 AM PCR in third ROLLED MATERIALS WORKER trimester GC & CHLAMYDIA AMPLIFIED LAB Routine Supervision of h igh risk 07/22/2019 11:55 AM ASSAY in third ROLLED MATERIALS WORKER trimester CBC WITH DIFF LAB Routine Supervision of high risk 11:55 AM in third ROLLED MATERIALS WORKER trimester CBC WITH DIFFERENTIAL LAB Routine Supervision of high risk 07/22/2019 11:55 AM in third ROLLED MATERIALS WORKER trimester Health Maintenance Due Date Last Done Comments CHLAMYDIA SCREENING 12/10/2019 12/09/2018, 10/01/2017, 05/13/2017, Additional history exists HPV VACCINES (1 - Female 06/12/2020 Postpon ed from 2-dose series) 2008 (Preg nant or ) MENINGOCOCCAL B VACCINES (1 06/21/2020 Post poned from of 2 - Risk Bexsero 2-dose 09/04 ( or series) ) INFLUENZA VACCINE (#1) 2020 Postponed from 03/01/2019 (Refu sed) PAP SMEAR 12/09/2021 12/09/2018 DTaP,Tdap,and Td Vaccines [...] Associated Diagnosis Comme nts POCT URINALYSIS Routine 07/22/2019 11:16 AM Supervision of [facility] Results for this ROLLED MATERIALS WORKER risk in procedure are in third trimester the results section. documented in this encounter Results POCT URINALYSIS W SPECIFIC GRAVITY (07/22/2019 11:16 AM ROLLED MATERIALS WORKER) Pathologist Sig nature POCT U SP GRAV . 1.005 - 1.025 mg/dl POCT PH U . 5 - 8 mg/dl POCT U LEUK EST . Negative - Negative POCT U NIT . Negative - Negative POCT U PROT trace Negative - Negative POCT U GLU negative Negative - Negative POCT U KETONE . Negative - Negative POCT U UROBILI . 0.2 - 1 mg/dl POCT U BILI . Negative - Negative POCT U BLD . Negative - Negative POCT U COLOR POCT U APPEAR Specimen Urine - URINE, CLEAN CATCH documented in this encounter Visit Diagnoses Diagnosis Supervision of high risk in ird trimester - Primary Unspecified high-risk Previous delivery affecting pre gnancy, antepartum Previous delivery, antepartum c ondition or complication Desires (vaginal after dejah an) trial Previous delivery, unspecified as to episode of care or not applicable Multiparity Obesity in Obesity complicating , childbir , or the puerperium, unspecified as to episode of care or not applicable documented in this encounter Insurance Payer Benefit Plan / Subscriber ID Effective Phone Address [address] [employer] xxxxxxxxx 2019-Mary Alice PENG Medic aid HEALTH CHOICE - [place] [phone] MANAGED MEDICAID [place], [place] [phone] documented as of this encounter Advance Directives Name Relationship Healthcare Agent Communication Relationship Lasosa Pérez Mother Primary healthcare agent
--- OUTSIDE RECORDS SUMMARY | 2019-11-04 13:56 | XMS REPORT | Summary of Care ---
:1995 Author Organization [facility] - [facility] Address [address] [place] [id number] Care Team Providers Name Role Phone George Grande Tao [facility] Primary Care Provider Reason for Referral (Routine) Status Reason Specialty Diagnoses / Referred By Referred To Procedures Contact Contact New Request OB Satellites Diagnoses S/P section [facility] Procedures DISCHARGE FOLLOW-UP: [facility] April Rowley MD [address] [facility] [id number] [place] [id number] Reason for Visit Auth/Cert Status Reason Specialty Diagnoses / Referred By Contact Refe rred To Contact Procedures Obstetrics Diagnoses Labor J7c [address] [place] [phone] Phone: Fax: Encounter Details Date Type Department Care Team Description 08/10/2019 - Hospital Encounter Mother Baby Unit L[facility] 39 we eks gestation 08/13/2019 (J7C) Halley, of [address] [place] MD Isma [address] [id number] [place], [place] [phone] Allergies No Known Allergiesdocumented as of this encounter (statuses as of 08/13/2019) Medications Medication Sig Dispensed Refills Start Date End Date Status Iron, Cbn & Take 1 tablet by 30 tablet 3 08/19/2017 Active [id number] mouth daily. (FERRALET 90 DUAL-IRON DELIVERY) 90-1-12-50 dt-gy-aeu-mg per tablet ferrous sulfate 325 mg Take 1 tablet by 60 tablet 3 07/24/2019 Active (65 mg iron) mouth 2 (two) tabletIndications: times daily. Anemia of mother in , condition ascorbic acid, vitamin Take 1 tablet by 90 tablet 3 07/24/2019 Active C, 500 mg mouth 3 (three) tabletIndications: times daily. Anemia of mother in , condition simethicone 80 mg Take 2 tablets by 60 tablet 1 08/11/2019 Active chewable mouth after meals tabletIndications: S/P and at bedtime as section needed for Gas. vitamin w/FA Take 1 tablet by 100 tablet 3 08/11/2019 Active tabletIndications: S/P mouth daily. section docusate calcium 240 Take 1 capsule by 60 capsule 1 08/11/2019 Active mg capsuleIndications: mouth once daily S/P section as needed for Constipation. ferrous sulfate 325 mg Take 1 tablet by 60 tablet 2 08/11/2019 Active (65 mg iron) mouth 2 (two) tabletIndications: S/P times daily. section ibuprofen 600 mg Take 1 tablet by 60 tablet 1 08/11/2019 Active tabletIndications: S/P mouth every 6 section (six) hours as needed (Pain). Take with food or milk. HYDROcodone-acetaminop Take 1 tablet by 20 tablet 0 08/11/2019 Active hen 5-325 mg mouth every 6 tabletIndications: S/P (six) hours as section needed for Pain (scale 4-6). documented as of this encounter (statuses as of 08/13/2019) Active Problems Problem Noted Date 39 weeks [...] as of this encounter (statuses as of 08/13/2019) Resolved Problems Problem Noted Date Resolved Date [...] as of this encounter (statuses as of 08/13/2019) Immunizations Name Administration Dates Next Due Tdap [...] Sign Reading Time Taken Comments Blood Pressure 110/50 08/13/2019 8:00 AM PAINTING TECHNICIAN Pulse 60 08/13/2019 8:00 AM PAINTING TECHNICIAN Temperature 36.5 C (97.7 F) 08/13/2019 8:00 AM PAINTING TECHNICIAN Respiratory Rate 17 08/13/2019 8:00 AM PAINTING TECHNICIAN Oxygen Saturation 97% 08/13/2019 8:00 AM PAINTING TECHNICIAN Inhaled Oxygen Concentration - - Weight - - Height - - Body Mass Index - - documented in this encounter Discharge Instructions Leeanna Walden RN - 08/13/2019Multidisciplinary Discharge Instructions (may include diet, dressing changes, activity limits, written materials given to patient: DIET: Eat a well balanced diet; drink 6-8 glasses of fluids daily; eat fruits and green, leafy vegetables. DAILY ACTIVITIES: 1. As much as you feel able to do. Rest when you are tired. 2. Limitations: Specify; No heavy lifting other than your baby for 4 weeks if you had surgery. TREATMENT AT HOME 1. Use a well-fitting bra to prevent breast engorgement 2. Resume intercourse as instructed by your physician. 3. Do not use douches or tampons for four weeks. 4. To help prevent urinary tract infection; after each urination and bowel movement, wipe and dry from front to back and change ida pad. 5. Follow discharge instructions regarding baby care. 6. Follow family planning instructions. IMMEDIATE TREATMENT - Call Clinic or Your Physician 1. Increase in pain and tenderness of uterus. 2. Increased vaginal bleeding (bright red blood which soaks 2 pads in 1 hour or pass large clots). 3. Foul smelling vaginal discharge. 4. Burning in the tube that empties the urine from the bladder. 5. Painful breast engorgement or cracked nipples. 6. Pain, discharges, or gaping incision. 7. Temperature greater than 38.0C or 100.4F 8. Pain and tenderness of calf or thigh muscles. 9. No bowel movements in 4 days. For Problems or Questions Call: OB Clinic Family Planning [phone] or Emergency: Go to the closest emergency room or call 911 AttachmentsThe following attachments cannot be sent through Care Everywhere. , After Giving: Changing Expectations for Parents (Macedonian) Depression, Understanding (Macedonian)documented in this encounter Progress Notes Emily Gan MD - 08/13/2019 6:31 AM CST POST-OPERATIVE PROGRESS NOTE 08/13/2019 6:31 AM Subjective: Overnight patient had no complaints. Her pain is well controlled on oral pain medications. She is tolerating a regular diet. She has passed flatus. She is ambulating without difficulty. Lochia is Scant. She is urinating without olmedo. Patient denies chest pain, SOB, n/v, headache, RUQ pain, vision changes, dizziness. Objective: VITALS: Patient Vitals for the past 24 hrs: BP Temp Temp src Pulse Resp SpO2 08/13/19 0000 114/60 36.6 C (97.8 F) Oral 72 18 99 % 08/12/19 2000 131/63 36.8 C (98.2 F) Oral 86 19 98 % 08/12/19 1600 133/72 36.6 C (97.8 F) Oral 79 19 98 % 08/12/19 0800 112/61 36.3 C (97.4 F) Oral 74 19 98 % I/O: No intake or output data in the 24 hours ending 08/13/19 0631 PE: General: patient alert and in no acute distress Lungs: clear to auscultation bilaterally Cardiology: regular rate and rhythm, no murmur Abdomen: normal tenderness to palpation, soft, bowel sounds present. Fundus is firm and at umbilicus Incision: Clean, dry, and intact, no erythema or induration Extremities: no clubbing, cyanosis, or edema : deferred MEDS: Current Facility-Administered Medications Medication Dose Route Frequency Last Rate Last Dose ascorbic acid (vitamin C) (VITAMIN C) tablet 500 mg 500 mg Oral DAILY 500 mg at 08/12/19 0815 bisacodyL (DULCOLAX) suppository 10 mg 10 mg Rectal QDAILYPRN diphenhydrAMINE (BENADRYL) 25 mg in NaCl 0.9% (NS) piggyback 25 mg IV Piggyback Q6HPRN diphenhydrAMINE (BENADRYL) tablet 25 mg 25 mg Oral Q6HPRN docusate calcium (SURFAK) capsule 240 mg 240 mg Oral QDAILYPRN 240 mg at 08/12/19 0818 ferrous sulfate tablet 325 mg 325 mg Oral TID MEALS 325 mg at 08/12/19 1922 foLIC acid (FOLATE) tablet 1 mg 1 mg Oral DAILY 1 mg at 08/12/19 0815 HYDROcodone-acetaminophen (NORCO 5) 5-325 mg tablet 1 tablet 1 tablet Oral Q6HPRN 1 tablet at08/12/19 1153 HYDROcodone-acetaminophen (NORCO 5) 5-325 mg tablet 2 tablet 2 tablet Oral Q6HPRN 2 tablet at08/13/19 0222 ibuprofen (IBU) tablet 600 mg 600 mg Oral Q6HPRN 600 mg at 08/13/19 0222 magnesium hydroxide (MILK OF MAGNESIA) 400 mg/5 mL suspension 30 mL 30 mL Oral QDAILYPRN 30 mL at 08/12/19 0817 nalbuphine (NUBAIN) injection 5 mg 5 mg Intravenous PRN ondansetron (ZOFRAN (PF)) injection 4 mg 4 mg Slow IV Push Q8HPRN rho(D) immune globulin (RHOGAM) syringe 300 mcg 300 mcg Intramuscular ONCE simethicone (GAS RELIEF (SIMETHICONE)) chewable tablet 160 mg 160 mg Oral PC+HSPRN 160 mg at 08/12/19 1922 LABS: WBC (10*3/L) Date Value 08/11/2019 11.09 08/10/2019 11.34 (H) HGB (g/dL) Date Value 08/11/2019 8.5 (L) 08/10/2019 9.3 (L) HCT (%) Date Value 08/11/2019 28.6 (L) 08/10/2019 31.1 (L) PLT (10*3/L) Date Value 08/11/2019 288 08/10/2019 297 Assessment: Karen Pérez is a 23 year [id number]/p repeatLTCS on 08/11/19 at 0240at 39w1d for ERCS,uncomplicated. Patient is recovering well: hemodynamically stable, good UOP, pain well-controlled, vitals within normal limits. Plan: Postoperative Review: - Admitted for:ERCS at 39 weeks - Surgical procedure:Repeat Lower uterine transverse sectionwith no extension - Skin incision:pfannenstiel - Closure:sutures - Estimated blood loss:600mL - Intraoperative Complications:none - Clinical trials:none - Urine output:Adequate - Preop H/H:9.3/31.1 - Postop H/H:8.5/28.6 Anemia - Patient denies s/s of anemia - Post op Hgb is 8.5 - Iron, Vitamin C, and Folate supplements post Sickle Cell Trait - Hgb of 9.3 on 08/10/19 - PP Hgb 8.5, patient is asx this AM, states she was feeling dizzy yesterday but is now feeling a lot better - Father is also carrier, hx of demise (9 mos) - Per pediatrics, sickle cell testing will be performed outpatient Antepartum Course Reviewed - 1 h91, seronegative, Rimmune, VZVimmune,A positive/IATnegative, GBSpositive, PapNILM Postoperative care: - Diet: Advance as tolerated - Fluid: Encourage oral intake - Activity: Encourage ambulation and incentive spirometry - Pain: Weston and Ibuprofen - DVT prophylaxis: SCDs and TEDs when not ambulating Discharge Planning - Contraception:depo shot - Vaccines:Gardasil - [facility] Baby Boy's Status - APGARs8,9 - Weight: 3825 g - Location:bedside - Male, Circumcision: completed Dispo: Patient is POD#2. Patient is meeting all milestones. Anticipate discharge today. Gardasil andDepo-Provera Emily Gan MD TING TECHNICIAN Associated attestation - Alexandro Hernandez MD - 08/13/2019 11:50 AM CST I have seen and evaluated on 08/13/19 the patient thereby confirming the rebolledo portions of the history and physical examination. I discussed the case with the resident and agree with the findings and plan as documented in the resident note. Patient Active Problem List Diagnosis Supervision of high risk in third trimester Previous delivery affecting , antepartum Sickle cell trait of child Multiparity Obesity in Trichomoniasis Type A blood, Rh positive Desires (vaginal after ) trial GBS (group B Streptococcus carrier), +RV culture, currently 39 weeks gestation of Naveed Benz, MD Chetan - 08/12/2019 6:12 AM CST POST-OPERATIVE PROGRESS NOTE 08/12/2019 6:12 AM Subjective: Overnight patient had no complaints. Her pain is well controlled on oral pain medications. She is tolerating a regular diet. She has not passed flatus. She is ambulating better without difficulty. Lochia is Scant. She is urinating without olmedo. Patient denies chest pain, SOB, n/v, headache, RUQ pain, vision changes, dizziness. Objective: VITALS: Patient Vitals for the past 24 hrs: BP Temp Temp src Pulse Resp SpO2 08/12/19 0400 117/61 36.7 C (98 F) Oral 73 19 98 % 08/12/19 0000 128/58 36.6 C (97.8 F) Oral 75 19 99 % 08/11/19 2045 124/70 36.7 C (98 F) Oral 76 20 99 % 08/11/19 1620 120/57 36.7 C (98.1 F) Oral 62 20 99 % 08/11/19 1443 123/68 93 20 98 % 08/11/19 1435 122/53 66 20 98 % 08/11/19 1430 110/52 70 20 100 % 08/11/19 1415 110/59 08/11/19 1400 118/47 36.7 C (98 F) Oral 73 20 98 % 08/11/19 1200 134/64 36.6 C (97.8 F) Oral 66 20 99 % 08/11/19 0800 124/65 36.6 C (97.9 F) Oral 69 20 99 % I/O: Intake/Output Summary (Last 24 hours) at 08/12/2019 0612 Last data filed at 08/12/2019 0400 Gross per 24 hour Intake Output 3310 ml Net -3310 ml PE: General: patient alert and in no acute distress Lungs: clear to auscultation bilaterally Cardiology: regular rate and rhythm, no murmur Abdomen: normal tenderness to palpation, soft, bowel sounds present. Fundus is firm and at umbilicus Incision: Clean, dry, and intact, no erythema or induration Extremities: no clubbing, cyanosis, or edema : deferred MEDS: Current Facility-Administered Medications Medication Dose Route Frequency Last Rate Last Dose ascorbic acid (vitamin C) (VITAMIN C) tablet 500 mg 500 mg Oral DAILY 500 mg at 08/11/19 1723 bisacodyL (DULCOLAX) suppository 10 mg 10 mg Rectal QDAILYPRN diphenhydrAMINE (BENADRYL) 25 mg in NaCl 0.9% (NS) piggyback 25 mg IV Piggyback Q6HPRN diphenhydrAMINE (BENADRYL) tablet 25 mg 25 mg Oral Q6HPRN docusate calcium (SURFAK) capsule 240 mg 240 mg Oral QDAILYPRN ferrous sulfate tablet 325 mg 325 mg Oral TID MEALS 325 mg at 08/11/19 1723 foLIC acid (FOLATE) tablet 1 mg 1 mg Oral DAILY 1 mg at 08/11/19 1723 HYDROcodone-acetaminophen (NORCO 5) 5-325 mg tablet 1 tablet 1 tablet Oral Q6HPRN HYDROcodone-acetaminophen (NORCO 5) 5-325 mg tablet 2 tablet 2 tablet Oral Q6HPRN 2 tablet at08/12/19 0326 ibuprofen (IBU) tablet 600 mg 600 mg Oral Q6HPRN 600 mg at 08/12/19 0326 magnesium hydroxide (MILK OF MAGNESIA) 400 mg/5 mL suspension 30 mL 30 mL Oral QDAILYPRN medroxyPROGESTERone (DEPO-PROVERA) injection 150 mg 150 mg Intramuscular ONCE nalbuphine (NUBAIN) injection 5 mg 5 mg Intravenous PRN naloxone (NARCAN) injection 0.4 mg 0.4 mg Slow IV Push PRN - SEE INSTRUCTIONS ondansetron (ZOFRAN (PF)) injection 4 mg 4 mg Slow IV Push Q8HPRN rho(D) immune globulin (RHOGAM) syringe 300 mcg 300 mcg Intramuscular ONCE simethicone (GAS RELIEF (SIMETHICONE)) chewable tablet 160 mg 160 mg Oral PC+HSPRN LABS: WBC (10*3/L) Date Value 08/11/2019 11.09 08/10/2019 11.34 (H) HGB (g/dL) Date Value 08/11/2019 8.5 (L) 08/10/2019 9.3 (L) HCT (%) Date Value 08/11/2019 28.6 (L) 08/10/2019 31.1 (L) PLT (10*3/L) Date Value 08/11/2019 288 08/10/2019 297 Assessment: Karen Pérez is a 23 year old POD#1 s/p repeat LTCS on 08/11/19 at 0240 at 39w1d for ERCS, uncomplicated. Patient is recovering well: hemodynamically stable, good UOP, pain well-controlled, vitals within normal limits. Plan: Postoperative Review: - Admitted for: ERCS at 39 weeks - Surgical procedure: Repeat Lower uterine transverse section with no extension - Skin incision: pfannenstiel - Closure: sutures - Estimated blood loss: 600 mL - Intraoperative Complications: none - Clinical trials: none - Urine output: 100cc for past 6 hours - Preop H/H: 9.3/31.1 - Postop H/H: 8.5/28.6 Sickle Cell Trait - Hgb of 9.3 on 08/10/19 - PP Hgb 8.5, patient is asx this AM, states she was feeling dizzy yesterday but is now feeling a lot better - Father is also carrier, hx of demise (9 mos) - Per pediatrics, sickle cell testing will be performed outpatient Antepartum Course Reviewed - 1 h91, seronegative, Rimmune, VZVimmune,A positive/IATnegative, GBSpositive, PapNILM Postoperative care: - Diet: Advance as tolerated - Fluid: Encourage oral intake - Activity: Encourage ambulation and incentive spirometry - Pain: Weston and Ibuprofen - DVT prophylaxis: SCDs and TEDs when not ambulating Discharge Planning - Contraception: depo shot - Vaccines: Gardasil - Follow up in 5-7 days for incision check and/or staple removal at [facility] - Follow Up: follow-up in 3-6 weeks at [facility] - Dispo: Anticipate discharge POD2 Baby Boy's Status - APGARs 8 , 9 - Weight: 3825 g - Location: bedside - Circumcision: desires Dispo: Patient is POD#1 s/p RCS, >24hr at 0240 this AM. Patient is doing well with no complaints.Postop Hgb 8.5 from 9.3, states she was feeling dizziness yesterday but has recovered and feels better this AM. Needs to meet the following milestones before discharge: passing flatus, ambulation. Anticipate discharge POD2. Will require Gardasil before discharge. Chetan Pierce MD TING TECHNICIAN Associated attestation - Renetta Nuñez MD - 08/12/2019 9:18 AM CSTI was rounding faculty for this patient and involved in planning. The patient was seen and examined by me. PLease see note of plan below. 23 year old POD#1 s/p repeat LTCS on 08/11/19 at 0240 at 39w1d for ERCS, uncomplicated. Postoperative Review: - Admitted for: ERCS at 39 weeks - Surgical procedure: Repeat Lower uterine transverse section with no extension - Skin incision: pfannenstiel - Closure: sutures - Estimated blood loss: 600 mL - Intraoperative Complications: none - Clinical trials: none - Urine output: 100cc for past 6 hours - Preop H/H: 9.3/31.1 - Postop H/H: 8.5/28.6 Sickle Cell Trait - Hgb of 9.3 on 08/10/19 - PP Hgb 8.5, patient is asx this AM, states she was feeling dizzy yesterday but is now feeling a lot better - Father is also carrier, hx of demise (9 mos) - Per pediatrics, sickle cell testing will be performed outpatient Antepartum Course Reviewed - 1 h 91, sero negative, Rimmune, VZVimmune, A positive/IAT negative, GBS positive, Pap NILM Postoperative care: - Diet: Advance as tolerated - Fluid: Encourage oral intake - Activity: Encourage ambulation and incentive spirometry - Pain: Weston and Ibuprofen - DVT prophylaxis: SCDs and TEDs when not ambulating Discharge Planning - Contraception: depo shot - Vaccines: Gardasil - Follow up in 5-7 days for incision check and/or staple removal at [facility] - Follow Up: follow-up in 3-6 weeks at [facility] - Dispo: Anticipate discharge POD2 Baby Boy's Status - APGARs 8 , 9 - Weight: 3825 g - Location: bedside - Circumcision: desires Dispo: Patient is POD#1 s/p RCS, >24hr at 0240 this AM. Patient is doing well with no complaints.Postop Hgb 8.5 from 9.3, states she was feeling dizziness yesterday but has recovered and feels better this AM. Needs to meet the following milestones before discharge: passing flatus, ambulation. Anticipate discharge POD2. Will require Gardasil before discharge. Emily Gan MD - 08/11/2019 5:03 PM CST R1 PROGRESS NOTE Karen Pérez [id number] 08/11/2019, 5:03 PM Notified by RN that patient complaining of dizziness. Patient is POD#0 s/p repeat LTCS. EBL 600mL. No postop CBC available at this time. VSS. UOP 100/150/200 cc Plan: - Stat CBC ordered - Orthostatics pending Update: CBC results 08/11/2019 14:47 HGB 8.5 (L) HCT 28.6 (L) MCV 71.5 (L) MCH 21.3 (L) MCHC 29.7 (L) RDW-SD 47.5 RDW-CV 18.6 (H) Orthostatics positive. Plan: - LR Bolus ordered - Will continue to monitor Emily Gan MD PGY-1, Obstetrics and Gynecology Chetan Son MD - 08/11/2019 6:00 AM CST POST-OPERATIVE PROGRESS NOTE 08/11/2019 6:00 AM Subjective: Overnight patient had no complaints. Her pain is well controlled on oral pain medications. She is not tolerating a regular diet. She has not passed flatus. She is not ambulating without difficulty. Lochia is Scant. She is not urinating without olmedo. Patient denies chest pain, SOB, n/v, headache, RUQ pain, vision changes, dizziness. Objective: VITALS: Patient Vitals for the past 24 hrs: BP Temp Temp src Pulse Resp SpO2 08/11/19 0525 116/58 36.8 C (98.2 F) Oral 84 21 99 % 08/11/19 0420 116/55 81 22 99 % 08/11/19 0405 111/51 36.6 C (97.8 F) Oral 69 9 99 % 08/11/19 0350 113/64 83 23 99 % 08/11/19 0335 109/52 80 20 99 % 08/11/19 0320 105/50 36.3 C (97.4 F) Oral 85 12 99 % 08/11/19 0130 125/70 82 100 % 08/11/19 0100 136/72 81 17 100 % 08/11/19 0030 130/72 85 100 % 08/11/19 0000 124/65 36.7 C (98.1 F) Axillary 82 17 99 % 08/10/19 2355 87 100 % 08/10/19 2330 126/58 87 100 % 08/10/19 2300 89 18 100 % 08/10/19 2230 124/72 92 100 % 08/10/19 2200 136/71 36.8 C (98.3 F) Axillary 92 18 100 % 08/10/19 2130 123/74 84 100 % 08/10/19 2100 133/74 89 100 % 08/10/19 2030 137/76 36.7 C (98 F) Axillary 98 17 100 % I/O: Intake/Output Summary (Last 24 hours) at 08/11/2019 0600 Last data filed at 08/11/2019 0525 Gross per 24 hour Intake 1350 ml Output 810 ml Net 540 ml PE: General: patient alert and in no acute distress Lungs: clear to auscultation bilaterally Cardiology: regular rate and rhythm, no murmur Abdomen: normal tenderness to palpation, soft, bowel sounds present. Fundus is firm and at umbilicus Incision: Clean, dry, and intact, no erythema or induration Extremities: no clubbing, cyanosis, or edema : deferred MEDS: Current Facility-Administered Medications Medication Dose Route Frequency Last Rate Last Dose LR 1000 mL + oxytocin 20 units IV Solution IV Infusion CONTINUOUS methylergonovine (METHERGINE) injection 0.2 mg 0.2 mg Intramuscular ONCE nalbuphine (NUBAIN) injection 5 mg 5 mg Intravenous PRN naloxone (NARCAN) injection 0.4 mg 0.4 mg Slow IV Push PRN - SEE INSTRUCTIONS oxytocin (PITOCIN) 40 Units in lactated ringers 1,000 mL IV infusion IV Infusion PRN lactated ringers IV infusion 1,000 mL 1,000 mL IV Infusion CONTINUOUS 125 mL/hr at 08/10/19 2245 1,000 mL at 08/10/19 2245 lactated ringers IV infusion 500 mL 500 mL IV Infusion ONCE LABS: WBC (10*3/L) Date Value 08/10/2019 11.34 (H) 07/22/2019 10.86 HGB (g/dL) Date Value 08/10/2019 9.3 (L) 07/22/2019 9.9 (L) HCT (%) Date Value 08/10/2019 31.1 (L) 07/22/2019 32.8 (L) PLT (10*3/L) Date Value 08/10/2019 297 07/22/2019 318 Assessment: Karen Pérez is a 23 year old POD#0 s/p repeat LTCS on 08/11/19 at 0240 at 39w1d for ERCS, uncomplicated. Patient is recovering well: hemodynamically stable, good UOP, pain well-controlled, vitals within normal limits. Plan: Postoperative Review: - Admitted for: ERCS at 39 weeks - Surgical procedure: Repeat Lower uterine transverse section with no extension - Skin incision: pfannenstiel - Closure: sutures - Estimated blood loss: 600 mL - Intraoperative Complications: none - Clinical trials: none - Urine output: 160cc since delivery - Preop H/H: 9.3/31.1 - Postop H/H: pending POD#1 Sickle Cell Trait - Hgb of 9.3 on 08/10/19 - will continue to monitor PP - father is also carrier, hx of demise (9 mos) - will notify pediatrics at time of delivery Antepartum Course Reviewed - 1 h 91, sero negative, Rimmune, VZVimmune, A positive/IAT negative, GBS positive, Pap NILM Postoperative care: - Diet: Advance as tolerated - Fluid: Encourage oral intake - Activity: Encourage ambulation and incentive spirometry - Pain: Weston and Ibuprofen - DVT prophylaxis: SCDs and TEDs when not ambulating Discharge Planning - Contraception: depo shot - Vaccines: Gardasil - Follow up in 5-7 days for incision check and/or staple removal at [facility] - Follow Up: follow-up in 3-6 weeks at [facility] - Dispo: Anticipate discharge POD1-2 Baby's Status - APGARs 8 , 9 - Weight: 3825 g - Location: bedside Dispo: Patient is POD#0, will be 24hr @ 0240 on 08/12/19 and require dressing removal/incision check.Patient is doing well with no complaints. Needs to meet the following milestones before discharge: all. Anticipate discharge POD#1-2. Will require Gardasil before discharge. Chetan Pierce MD TING TECHNICIAN Associated attestation - April Rayo MD - 08/11/2019 5:18 PM PAINTING TECHNICIAN Present and participated in the caredocumented in this encounter Plan of Treatment Date Type Specialty Care Team Description 08/18/2019 Nurse Visit OB Satellites Visit, [facility] Nurse 09/01/2019 Routine Visit OB Satellites Cathy Santiago, WHCNP [address], [place] [address] [phone] Name Type Priority Associated Diagnoses Date/Ti me Type and Screen - LAB STAT 08/10/2019 10:30 PM PAINTING TECHNICIAN ONCE STAT Prepare Packed RBC Blood Bank STAT 0 2:11 AM PAINTING TECHNICIAN (in units) Health Maintenance Due Date Last Done Comments [...] encounter Procedures Procedure Name Priority Date/Time Associated Comments Diagnosis CBC WITH DIFFERENTIAL STAT 08/11/2019 2:47 Re sults for this PM PAINTING TECHNICIAN procedure are i n the results section. CBC WITH DIFFERENTIAL STAT 08/11/2019 2:47 Re sults for this PM PAINTING TECHNICIAN procedure are i n the results section. VENOUS CORD GAS ELIZABETH 08/11/2019 2:42 Results for this AM PAINTING TECHNICIAN procedure are i n the results section. ARTERIAL CORD GAS ELIZABETH 08/11/2019 2:42 Result s for this AM PAINTING TECHNICIAN procedure are i n the results section. SECTION 08/11/2019 1:31 23 y/o prev AM PAINTING TECHNICIAN x1 for repeat at term GALV ONLY - SYPHILIS EILZABETH 08/10/2019 10:46 Res ults for this IGG/IGM PM PAINTING TECHNICIAN procedure are i n the results section. CBC WITH DIFFERENTIAL ELIZABETH 08/10/2019 10:46 Re sults for this PM PAINTING TECHNICIAN procedure are i n the results section. HEPATITIS B SURFACE ELIZABETH 08/10/2019 10:46 Resu lts for this ANTIGEN PM PAINTING TECHNICIAN procedure are i n the results section. CBC WITH DIFFERENTIAL ELIZABETH 08/10/2019 10:46 Re sults for this PM PAINTING TECHNICIAN procedure are i n the results section. ABORH INVESTIGATION STAT 08/10/2019 10:30 Resu lts for this PM PAINTING TECHNICIAN procedure are i n the results section. RHO (D) IMMUNE GLOBULIN Routine 08/10/2019 10:30 Results for this PM PAINTING TECHNICIAN procedure are i n the results section. PANEL IDENTIFICATION STAT 08/10/2019 10:30 Res ults for this PM PAINTING TECHNICIAN procedure are i n the results section. documented in this encounter Results CBC WITH DIFFERENTIAL (08/11/2019 2:47 PM PAINTING TECHNICIAN) WBC 11.09 4.30 - 11.10 [facility] 10*3/L SERVICES RBC 4.00 3.93 - 5.25 [facility] 10*6/L SERVICES HGB 8.5 (L) 11.6 - 15.0 [facility] g/dL SERVICES HCT 28.6 (L) 35.7 - 45.2 % [facility] SERVICES MCV 71.5 (L) 80.6 - 95.5 [facility] fL SERVICES MCH 21.3 (L) 25.9 - 32.8 [facility] pg SERVICES MCHC 29.7 (L) 31.6 - 35.1 [facility] g/dL SERVICES RDW-SD 47.5 39.0 - 49.9 [facility] fL SERVICES RDW-CV 18.6 (H) 12.0 - 15.5 % [facility] SERVICES PLT 288 166 - 358 [facility] 10*3/L SERVICES MPV 10.6 9.5 - 12.9 fL [facility] SERVICES IPF % 4.5Comment: Platelet 1.3 - 7.7 % [facility] count measured by SERVICES fluorescence method. NRBC/100 WBC 0.0 0.0 - 10.0 [facility] /100 WBCs SERVICES NRBC x10^3 <0.01 10*3/L [facility] SERVICES GRAN MAT (NEUT) % 80.2 % [facility] SERVICES IMM GRAN % 0.50 % [facility] SERVICES LYMPH % 10.2 % [facility] MONO % 8.0 % [facility] EOS % 0.8 % [facility] BASO % 0.3 % [facility] SERVICES GRAN MAT 8.89 (H) 1.88 - 7.09 [facility] x10^3(ANC) 10*3/uL SERVICES IMM GRAN x10^3 0.06 0.00 - 0.06 [facility] 10*3/uL SERVICES LYMPH x10^3 1.13 (L) 1.32 - 3.29 [facility] 10*3/uL SERVICES MONO x10^3 0.89 0.33 - 0.92 [facility] 10*3/uL SERVICES EOS x10^3 0.09 0.03 - 0.39 [facility] 10*3/uL SERVICES BASO x10^3 0.03 0.01 - 0.07 [facility] 10*3/uL SERVICES Specimen Blood - ARM, LEFT Performing Organization Address City/State/Zipcode Phone Number [facility] CLIA: [id number], [address] [address] 555 [facility] Venous Cord Gas (08/11/2019 2:42 AM PAINTING TECHNICIAN) Pathologist Sig nature VENOUS BASE EXCESS, -4.5 mEq/L [facility] CORD SERVICES VENOUS PH, CORD 7.25 7.25 - 7.45 [facility] VENOUS PC02, CORD 55 (H) 27 - 49 mmHg [facility] VENOUS PO2, CORD 17 17 - 41 mmHg [facility] VENOUS BICARBONATE, 24 12 - 29 mEq/L [facility] CORD SERVICES Specimen Blood - CORD Performing Organization Address City/State/Zipcode Phone Number [facility] CLIA: [id number], [address] [place] [address] 555 [facility] Arterial Cord Gas (08/11/2019 2:42 AM PAINTING TECHNICIAN) Pathologist Sig nature BASE EXCESS, CORD -6.3 mEq/L [facility] AC PH, CORD (BEAKER) 7.17 (L) 7.18 - 7.38 [facility] PC02, CORD 66 32 - 66 mmHg [facility] PO2, CORD <10 (L) 10 - 30 mmHg [facility] BICARBONATE, CORD 24 17 - 27 mEq/L [facility] Specimen Blood - CORD Performing Organization Address City/State/Zipcode Phone Number [facility] CLIA: [id number], [address] [place] [address] 555 [facility] CBC WITH DIFFERENTIAL (08/10/2019 10:46 PM PAINTING TECHNICIAN) Pathologist Sig nature WBC 11.34 (H) 4.30 - 11.10 [facility] 10*3/L SERVICES RBC 4.33 3.93 - 5.25 [facility] 10*6/L SERVICES HGB 9.3 (L) 11.6 - 15.0 [facility] g/dL SERVICES HCT 31.1 (L) 35.7 - 45.2 % [facility] MCV 71.8 (L) 80.6 - 95.5 fL [facility] MCH 21.5 (L) 25.9 - 32.8 pg [facility] MCHC 29.9 (L) 31.6 - 35.1 [facility] g/dL SERVICES RDW-SD 47.4 39.0 - 49.9 fL [facility] RDW-CV 18.6 (H) 12.0 - 15.5 % [facility] PLT 297 166 - 358 [facility] 10*3/L SERVICES MPV 9.6 9.5 - 12.9 fL [facility] NRBC/100 WBC 0.0 0.0 - 10.0 /100 [facility] WBCs SERVICES NRBC x10^3 <0.01 10*3/L [facility] SERVICES GRAN MAT (NEUT) % 80.9 % [facility] IMM GRAN % 0.50 % [facility] LYMPH % 12.3 % [facility] MONO % 5.7 % [facility] EOS % 0.4 % [facility] BASO % 0.2 % [facility] GRAN MAT x10^3(ANC) 9.17 (H) 1.88 - 7.09 [facility] 10*3/uL SERVICES IMM GRAN x10^3 0.06 0.00 - 0.06 [facility] 10*3/uL SERVICES LYMPH x10^3 1.39 1.32 - 3.29 [facility] 10*3/uL SERVICES MONO x10^3 0.65 0.33 - 0.92 [facility] 10*3/uL SERVICES EOS x10^3 0.05 0.03 - 0.39 [facility] 10*3/uL SERVICES BASO x10^3 <0.03 0.01 - 0.07 [facility] 10*3/uL SERVICES Specimen Blood - VENOUS Performing Organization Address City/State/Zipcode Phone Number [facility] CLIA: [id number], [address] [place] [address] 555 [facility] ONLY - SYPHILIS IGG/IGM (08/10/2019 10:46 PM PAINTING TECHNICIAN) Pathologist Sig nature Syphilis IgG/IgM Non-reactive Non-reactive [facility] Specimen Blood - VENOUS Narrative Performed At [facility] Non-reactive - No serologic evidence of T. pallidum infection. Cannot exclude incubating or early syphilis . Submit a second specimen in 2-4 weeks if syphilis is clinically suspected. Equivocal - Further testing to follow. Reactive - Further testing to follow. Performing Organization Address City/State/Zipcode Phone Number [facility] CLIA: [id number], [address] [place] [address] 555 [facility] Hepatitis B Surface Antigen (08/10/2019 10:46 PM PAINTING TECHNICIAN) Pathologist Sig nature HBsAg Negative Negative [facility] HBsAg 0.04 [facility] Semi-Quantitative SERVICES Specimen Blood - VENOUS Performing Organization Address City/[facility]/Zipcode Phone Number [facility] CLIA: [id number], [address] [place] [address] 555 [facility] PANEL IDENTIFICATION (08/10/2019 10:30 PM PAINTING TECHNICIAN) Pathologist Sig nature ANTIBODY ID Anti-A1 LAB Comment: Performed at [facility] Laboratory Services - [place] [address] Toll Free: [phone] CLIA No. [id number] Specimen Performing Organization Address City/[facility] Phone Number D LAB RHO (D) IMMUNE GLOBULIN (08/10/2019 10:30 PM PAINTING TECHNICIAN) Pathologist Sig nature RHIG CANDIDATE? No- see comment LAB Comment: Patient is not a candidate for RhIg- Patient is Rh Pos itive. Performed at [facility] Laboratory Services - [facility] [address] [place] [address] Toll Free: [phone] CLIA No. [id number] Specimen Blood Performing Organization Address City/[facility] Phone Number D LAB ABORH INVESTIGATION STAT (08/10/2019 10:30 PM PAINTING TECHNICIAN) Pathologist Sig nature ABO & RH A Positive LAB Comment: RH 0; A2 cell 0; A subgroup Performed at [facility] Laboratory Services - [facility] [address] [place] [address] Toll Free: [phone] CLIA No. [id number] Specimen Performing Organization Address City/State/Zipcode Phone Number D LAB documented in this encounter Visit Diagnoses Diagnosis S/P section - Primary Other postprocedural status 39 weeks gestation of state, incidental Supervision of high risk in th ird trimester Unspecified high-risk Sickle cell trait Sickle-cell trait Multiparity Type A blood, Rh positive Other specified conditions influencing h ealth status of child Family disruption due to of family member Previous delivery affecting pre gnancy, antepartum Previous delivery, antepartum c ondition or complication documented in this encounter Administered Medications Medication Order MAR Action Action Date Dose Rate Site ascorbic acid (vitamin C) Given 08/13/2019 11:22 AM PAINTING TECHNICIAN 500 mg (VITAMIN C) tablet 500 mg 500 mg, Oral, DAILY, First dose on Sat08/11/19 at 1645, Until Discontinued, Routine Given 08/12/2019 8:15 AM PAINTING TECHNICIAN 500 mg Given 08/11/2019 5:23 PM PAINTING TECHNICIAN 500 mg docusate calcium (SURFAK) capsule 240 mg Given 08/12/2019 8:18 AM PAINTING TECHNICIAN 240 mg 240 mg, Oral, QDAILYPRN, Starting Sat08/11/19 at 0639, Until Discontinued, Routine, Constipation ferrous sulfate tablet 325 mg Given 08/13/2019 11:22 AM PAINTING TECHNICIAN 325 mg 325 mg, Oral, TID MEALS, First dose on Sat08/11/19 at 1700, Until Discontinued, Routine Given 08/12/2019 7:22 PM PAINTING TECHNICIAN 325 mg Given 08/12/2019 11:53 AM PAINTING TECHNICIAN 325 mg foLIC acid (FOLATE) tablet 1 mg Given 08/13/2019 11:21 AM PAINTING TECHNICIAN 1 mg 1 mg, Oral, DAILY, First dose on Sat08/11/19 at 1645, Until Discontinued, Routine Given 08/12/2019 8:15 AM PAINTING TECHNICIAN 1 mg Given 08/11/2019 5:23 PM PAINTING TECHNICIAN 1 mg HYDROcodone-acetaminophen (NORCO 5) 5-325 Given 2019 11:53 AM PAINTING TECHNICIAN 1 tablet mg tablet 1 tablet 1 tablet, Oral, Q6HPRN, Starting Sat08/11/19 at 0639, Until Discontinued, Routine, Pain (scale 4-6), If uncontrolled by Ibuprofen HYDROcodone-acetaminophen (NORCO 5) 5-325 Given 2019 2:55 PM PAINTING TECHNICIAN 2 tablets mg tablet 2 tablet 2 tablet, Oral, Q6HPRN, Starting Sat08/11/19 at 0639, Until Discontinued, Routine, Pain (scale 7-10), If uncontrolled by Ibuprofen Given 08/13/2019 2:22 AM PAINTING TECHNICIAN 2 tablets Given 08/12/2019 7:22 PM PAINTING TECHNICIAN 2 tablets ibuprofen (IBU) tablet 600 mg Given 08/13/2019 2:55 PM PAINTING TECHNICIAN 600 mg 600 mg, Oral, Q6HPRN, Starting Sat08/11/19 at 0639, Until Discontinued, Routine, Pain (scale 1-3) Given 08/13/2019 2:22 AM PAINTING TECHNICIAN 600 mg Given 08/12/2019 7:22 PM PAINTING TECHNICIAN 600 mg magnesium hydroxide (MILK OF MAGNESIA) 400 Given 08/12/2019 8:1 7 AM PAINTING TECHNICIAN 30 mL mg/5 mL suspension 30 mL 30 mL, Oral, QDAILYPRN, Starting Sat08/11/19 at 0639, Until Discontinued, Routine, Constipation nalbuphine (NUBAIN) injection 5 mg 5 mg, Intravenous, PRN, 1 dose, Starting Sat08/11/19 at 0341, Until Discontinued, Routine, Itching, PACU simethicone (GAS RELIEF (SIMETHICONE)) Given 08/12/2019 7:22 PM PAINTING TECHNICIAN 160 mg chewable tablet 160 mg 160 mg, Oral, PC+HSPRN, Starting Sat08/11/19 at 0639, Until Discontinued, Routine, Gas Given 08/12/2019 8:17 AM PAINTING TECHNICIAN 160 mg Medication Order MAR Action Action Date Dose Rate Site acetaminophen (TYLENOL) tablet Given 08/10/2019 11:10 PM PAINTING TECHNICIAN 650 mg 650 mg 650 mg, Oral, ONCE, 1 dose, 08/10/19 at 2200, Routine ceFAZolin in dextrose (iso-os) (ANCEF) 2 Given 08/10/2019 11:10 PM PAINTING TECHNICIAN 2 g gram/100 mL Piggyback 2 g 2 g (2,000 mg), IV Piggyback, O.R. HOLDING ONCE, 1 dose, Starting Sat08/10/19 at 2144, Until Sat08/10/19 at 2310, 100 mL, Reason for Anti-Infective: Surgical Prophylaxis, Surgical Prophylaxis: CUSTOMER COUNTER ASSOCIATE, Duration of therapy: within 24 hours of surgery ketorolac (TORADOL) injection 30 mg Given 08/11/2019 4:01 AM PAINTING TECHNICIAN 30 mg 30 mg, Slow IV Push, PRN, 1 dose, Starting Sat08/11/19 at 0341, Until Sat08/11/19 at 0401, Routine, Pain (scale 7-10), PACU, delivery crew member approving Restricted medication: PETROS MELISSA lactated ringers IV infusion New Bag 08/10/2019 10:45 PM PAINTING TECHNICIAN 1,000 mL 125 mL/hr 1,000 mL at 125 mL/hr, 1,000 mL, IV Infusion, CONTINUOUS, Starting 08/10/19 at 2200, Until Tu08/11/19 at 0639, Routine lactated ringers IV infusion New Bag 08/11/2019 3:34 PM PAINTING TECHNICIAN 1,000 mL 125 mL/hr 1,000 mL at 125 mL/hr, 1,000 mL, IV Infusion, ONCE, 1 dose, 08/11/19 at 0645, Routine lactated ringers IV infusion 500 New Bag 08/11/2019 3:[address] 500 mL 999 mL/hr mL at 999 mL/hr, 500 mL, Intravenous, ONCE, 1 dose, 08/11/19 at 1600, Routine LR 1000 mL + oxytocin 20 units IV Given 08/11/2019 8:56 AM PAINTING TECHNICIAN 125 mL/hr Solution at 125 mL/hr, IV Infusion, ONCE, 1 dose, 08/11/19 at 0645, ELIZABETH ondansetron (ZOFRAN (PF)) injection 4 mg Given 08/11/2019 3:41 AM PAINTING TECHNICIAN 4 mg 4 mg, Slow IV Push, ONCE, 1 dose, 08/11/19 at 0345, Routine, PACU sodium citrate-citric acid (BICITRA) 500-334 Given 03/2020 11:10 PM PAINTING TECHNICIAN 30 mL mg/5 mL solution 30 mL 30 mL, Oral, PRE-PROCEDURE ONCE, 1 dose, Starting 08/10/19 at 2144, Until Sat08/10/19 at 2310, Routine, Surgery/Procedure documented in this encounter Insurance Payer Benefit Plan / Subscriber ID Effective Phone Address [facility] xxxxxxxxx 2019-Mary Alice PENG Medic aid HEALTH CHOICE - HEALTH CHOICE nt [id number] 1 MANAGED MEDICAID [place], [place] [phone] documented as of this encounter Advance Directives Name Relationship Healthcare Agent Communication Relationship Marlin Pérez Mother Primary healthcare agent
--- OUTSIDE RECORDS SUMMARY | 2019-11-04 13:57 | XMS REPORT | Summary of Care ---
:1995 Author Organization [facility] [employer] Address [address] [place] [address] Care Team Providers Name Role Phone George Grande [facility] Primary Care Provider Reason for Visit Reason Comments Abnormal Lab Anemia Encounter Details Date Type Department Care Team Description 07/24/2019 Telephone [facility]- George Grande, Ab normal Lab (Anemia) [facility] [address] [facility] [address] [place], [place] [phone] Allergies No Known Allergiesdocumented as of this encounter (statuses as of 07/24/2019) Medications Medication Sig Dispensed Refills Start Date End Date Status Iron, Cbn & Take 1 tablet by 30 tablet 3 08/19/2017 Active [id number]-C-DSS mouth daily. (FERRALET 90 DUAL-IRON DELIVERY) 90-1-12-50 yu-gx-ycq-mg per tablet ferrous sulfate 325 mg Take [...] as of this encounter (statuses as of 07/24/2019) Active Problems Problem Noted Date Desires (vaginal [...] as of this encounter (statuses as of 07/24/2019) Resolved Problems Problem Noted Date Resolved Date [...] as of this encounter (statuses as of 07/24/2019) Immunizations Name Administration Dates Next Due Tdap [...] Description 07/29/2019 Routine Visit OB Satellites Tao Grande, HERBARIUM WORKER [address] [place] [address] [phone] Health Maintenance Due Date Last Done Comments [...] filedocumented in this encounter Visit Diagnoses Diagnosis Anemia of mother in , postpartu m condition - Primary Anemia, documented in this encounter Insurance Payer Benefit Plan / Subscriber ID Effective Phone Address [facility] xxxxxxxxx 2019-Mary Alice [address] Medic aid HEALTH CHOICE - HEALTH CHOICE nt [id number] 1 MANAGED MEDICAID [place], [place]ID [phone] documented as of this encounter Advance Directives Name Relationship Healthcare Agent Communication Relationship Marlin Elisa Mother Primary healthcare agent
--- OUTSIDE RECORDS SUMMARY | 2019-11-04 13:57 | XMS REPORT | Summary of Care ---
:1995 Author Organization [facility] Address [address] [place] [address] Care Team Providers Name Role Phone George Grande RESEARCH METHODOLOGIST Primary Care Provider Reason for Visit Reason Comments Care Encounter Details Date Type Department Care Team Description 07/29/2019 Routine [facility]- George Grande upervision of high risk in third trimester (Primary Dx); Visit ÁNGEL Marina Desires (vaginal after dejah an) trial; [address] GBS (group B Streptococcus c arrier), +RV culture, currently ; [place], [place] Previous delivery affecting pre gnancy, antepartum; [address] [place], [place] Sickle cell trait; [phone] [address] of child; [phone] Multiparity; [phone] Obesity in preg mundo (Fax) Allergies No Known Allergiesdocumented as of this encounter (statuses as of 07/29/2019) Medications Medication Sig Dispensed Refills Start Date End Date Status Iron, Cbn & Take 1 tablet by 30 tablet 3 08/19/2017 Active Jpgh-[id number]-C73-C-DSS mouth daily. (FERRALET 90 DUAL-IRON DELIVERY) 90-1-12-50 yf-dy-uld-mg per tablet ferrous sulfate 325 mg Take [...] as of this encounter (statuses as of 07/29/2019) Active Problems Problem Noted Date GBS (group [...] as of this encounter (statuses as of 07/29/2019) Resolved Problems Problem Noted Date Resolved Date [...] as of this encounter (statuses as of 07/29/2019) Immunizations Name Administration Dates Next Due Tdap [...] Sign Reading Time Taken Comments Blood Pressure 134/75 07/29/2019 11:08 AM PRODUCE TEAM LEAD Pulse 95 07/29/2019 11:08 AM PRODUCE TEAM LEAD Temperature 36.6 C (97.9 F) 07/29/2019 11:08 AM PRODUCE TEAM LEAD Respiratory Rate 16 07/29/2019 11:08 AM PRODUCE TEAM LEAD Oxygen Saturation - - Inhaled Oxygen Concentration - - Weight 114.8 kg (253 lb 2 oz) 07/29/2019 11:08 AM PRODUCE TEAM LEAD Height 167.6 cm (5' 6") 07/29/2019 11:08 AM PRODUCE TEAM LEAD Body Mass Index 40.86 07/29/2019 11:08 AM PRODUCE TEAM LEAD documented in this encounter Progress Notes George Grande, ÁNGEL - 07/29/2019 11:00 AM CST Chief complaint: Chief Complaint Patient presents with Care HPI CC: Follow Up Visit Karen Pérez is a 23 year old, , Black or female. Patient's last menstrual period was 11/10/2018 (exact date). She is 37w2d with an intrauterine . Her estimateddate of [...] N/A 11/04/2017 Surgeon: Bonita Leiva MD; Location: [facility] Labor and Delivery [place] Location [place] [facility],KNEE AREA SURGERY Social History Socioeconomic History [...] No domestic abuse or violence. No cats. Alevism: Worship Social History Substance and Sexual Activity Sexual Activity Yes Partners: Male control/protection: None Comment: last sexual intercourse 11/30/2018 Labs No new labs Radiology No new radiology. Allergies Karen has No Known Allergies. Medications Karen has a current medication list which includes the following prescription(s): ascorbic acid (vitamin c), ferrous sulfate, and iron, cbn & zdva-yv-c10-c-dss. Review of Systems Eyes: Negative for visual disturbance. Cardiovascular: Negative for leg swelling. Gastrointestinal: Negative for abdominal pain, nausea and vomiting. Genitourinary: Negative for vaginal bleeding, vaginal discharge and pelvic pain. Neurological: Negative for headaches. BP 134/75 (BP Location: Right arm, Patient Position: Sitting, BP CUFF SIZE: Adult Medium) | Pulse 95 | Temp 36.6 C (97.9 F) (Oral) | Resp 16 | Ht 5' 6" (1.676 m) | Wt 253 lb 2 oz (114.8 kg) |LMP 11/10/2018 (Exact Date) | BMI 40.86 kg/m Pregravid BMI: 39.4 Physical Exam PHYSICAL: General Exam: Neurological: Normal Abdomen: Normal Extremities: Normal Pelvic Exam: Uterus: 38cm Weeks Assessment/Plan Supervision of high risk in third trimester (primary encounter diagnosis) Desires (vaginal after ) trial GBS (group B Streptococcus carrier), +RV culture, currently Previous delivery affecting , antepartum of child Multiparity Comment: Routine Visit Plan: POCT URINALYSIS GLUCOSE & PROTEIN Denies zika virus risk, signs and symptoms such as fever,rash,joint pain, conjunctivitis (red eyes), muscle pain, headaches; outside [place] travel to areas affected by zika, and FOB exposure to zika.Educated on use of mosquito repellent. Sickle cell trait Comment: monthly urine culture Plan: last one done 07/06 Obesity in Comment: See BMI Plan: Patient encouraged to limit weight gain and sensible diet. Return to clinic in 1 weeks. Discussed treatment options. Medications as ordered. Reviewed patient instructions and provided printed copy. This visit did not involve counseling and coordination that comprised more than 50% of the visit time. ÁNGEL Gonzalez 07/29/2019 11:24 AM UCE TEAM LEAD documented in this encounter Plan of Treatment Date Type Specialty Care Team Description 08/05/2019 Routine Visit OB Satellites Tao Grande FNP [address] [place] [address] [phone] Health Maintenance Due Date Last Done Comments [...] Associated Diagnosis Comme nts POCT URINALYSIS Routine 07/29/2019 11:12 Supervision of high R esults for this GLUCOSE & PROTEIN AM PRODUCE TEAM LEAD risk in [facility] sesar are in third trimester the results section. documented in this encounter Results POCT URINALYSIS GLUCOSE & PROTEIN (07/29/2019 11:12 AM PRODUCE TEAM LEAD) Pathologist Sig nature POCT U PROT trace Negative - Negative POCT U GLU neg Negative - Negative Specimen Urine - URINE, CLEAN CATCH documented in this encounter Visit Diagnoses Diagnosis Supervision of high risk in ird trimester - Primary Unspecified high-risk Desires (vaginal after dejah an) trial Previous delivery, unspecified as to episode of care or not applicable GBS (group B Streptococcus carrier), +RV culture, currently Supervision of other high-risk Previous delivery affecting pre gnancy, antepartum Previous delivery, antepartum c ondition or complication Sickle cell trait Sickle-cell trait of child Family disruption due to of family member Multiparity Obesity in Obesity complicating , childbir th, or the puerperium, unspecified as to episode of care or not applicable documented in this encounter Insurance Payer Benefit Plan / Subscriber ID Effective Phone Address [facility] xxxxxxxxx 2019-Mary Alice [address] Medic aid HEALTH CHOICE - HEALTH CHOICE nt [id number] 1 MANAGED MEDICAID [place], [place] [phone] documented as of this encounter Advance Directives Name Relationship Healthcare Agent Communication Relationship Billiesosa Pérez Mother Primary healthcare agent
--- OUTSIDE RECORDS SUMMARY | 2019-11-04 13:57 | XMS REPORT | Summary of Care ---
:1995 Author Organization [facility] Address [address] [place] [address] Care Team Providers Name Role Phone George Grande CANARY RAISER Primary Care Provider Reason for Visit Reason Comments Care Encounter Details Date Type Department Care Team Description 07/22/2019 Routine [facility]- George Grande upervision of high risk in third trimester (Primary Dx); Visit ÁNGEL Marina Previous delivery affecting pre gnancy, antepartum; [address] (vaginal after ) trial; [place], [place]; [address] [place], [place] Obesity in [phone] Allergies No Known Allergiesdocumented as of this encounter (statuses as of 07/22/2019) Medications Medication Sig Dispensed Refills Start Date End Date Status Iron, Cbn & Take 1 tablet by 30 tablet 3 08/19/2017 Active Bpbv-NI-S16-C-DSS mouth daily. (FERRALET 90 DUAL-IRON DELIVERY) 90-1-12-50 gr-by-dgh-mg per tablet documented as of this encounter [...] Comments Blood Pressure 126/80 07/22/2019 11:07 AM TAKE OUT WAITER/WAITRESS Pulse 96 07/22/2019 11:07 AM TAKE OUT WAITER/WAITRESS Temperature 36.3 C (97.4 F) 07/22/2019 11:07 AM TAKE OUT WAITER/WAITRESS Respiratory Rate 16 07/22/2019 11:07 AM TAKE OUT WAITER/WAITRESS Oxygen Saturation - - Inhaled Oxygen Concentration - - Weight 114.3 kg (252 lb 1 oz) 07/22/2019 11:07 AM TAKE OUT WAITER/WAITRESS Height 167.6 cm (5' 6") 07/22/2019 11:07 AM TAKE OUT WAITER/WAITRESS Body Mass Index 40.68 07/22/2019 11:07 AM TAKE OUT WAITER/WAITRESS documented in this encounter Progress Notes George [...] N/A 11/04/2017 Surgeon: Bonita Leiva MD; Location: [facility] Labor and Delivery OR Location [place] ANESTH,KNEE AREA SURGERY Social History Socioeconomic History [...] file Gets together: Not on file Attends orthodoxy service: Not on file Active member of [...] No domestic abuse or violence. No cats. Denominational: Protestant Social History Substance and Sexual Activity Sexual Activity Yes Partners: Male control/protection: None Comment: last sexual intercourse 11/30/2018 Labs Labs are pending. Radiology No new radiology. Allergies Karen has No Known Allergies. Medications Kraen has a current medication list which includes the following prescription(s): iron, cbn & ijpe-aq-j36-c-dss. Review of Systems Eyes: Negative for visual [...] Normal Abdomen: Normal Extremities: Normal Pelvic Exam: Vagina: [place] Land Supervisor present for the exam: Rubia Nichols RN Cervix: 1/50/-3 Membrane status: Intact Uterus: 37cm Weeks Assessment/Plan Supervision of high [...] visit time. ÁNGEL Gonzalez 07/22/2019 12:41 PM OUT WAITER/WAITRESS documented in this encounter Plan of Treatment Date Type Specialty Care Team Description 07/29/2019 Routine Visit OB Satellites Tao Grande FNP [address] [id number] 15 [phone] Name Type Priority Associated Diagnoses Date/Ti me GROUP B STREPTOCOCCUS BY LAB Routine Supervision of h igh risk 07/22/2019 11:55 AM PCR in third TAKE OUT WAITER/WAITRESS trimester GC & CHLAMYDIA AMPLIFIED LAB Routine Supervision of h igh risk 07/22/2019 11:55 AM ASSAY in third TAKE OUT WAITER/WAITRESS trimester CBC WITH DIFF LAB Routine Supervision of high risk 11:55 AM in third TAKE OUT WAITER/WAITRESS trimester CBC WITH DIFFERENTIAL LAB Routine Supervision of high risk 07/22/2019 11:55 AM in third TAKE OUT WAITER/WAITRESS trimester Health Maintenance Due Date Last Done [...] URINALYSIS Routine 07/22/2019 11:16 AM Supervision of [facility] Results for this TAKE OUT WAITER/WAITRESS risk in procedure are in third trimester the results section. documented in this encounter Results POCT URINALYSIS W SPECIFIC GRAVITY (07/22/2019 11:16 AM TAKE OUT WAITER/WAITRESS) Pathologist Sig nature POCT U SP GRAV [...] / Subscriber ID Effective Phone Address T [facility] xxxxxxxxx 2019-Mary Alice [address] Medic aid HE[place] [id number] 1 MANAGED MEDICAID [place], [place] [phone] documented as of this encounter Advance Directives Name Relationship Healthcare Agent Communication Relationship Billiesosa Pérez Mother Primary healthcare agent
--- OUTSIDE RECORDS SUMMARY | 2019-11-04 13:57 | XMS REPORT | Summary of Care ---
:1995 Author Organization [facility] Address [address] [place] [address] Care Team Providers Name Role Phone George Grande PERSONAL CARE AID Primary Care Provider Reason for Visit Reason Comments Care Encounter Details Date Type Department Care Team Description 07/22/2019 Routine [facility]- George Grande upervision of high risk in third trimester (Primary Dx); Visit ÁNGEL Marina Previous delivery affecting pre gnancy, antepartum; [address] (vaginal after ) trial; [place], [place]; [address] [place], [place] Obesity in [phone] Allergies No Known Allergiesdocumented as of this encounter (statuses as of 07/22/2019) Medications Medication Sig Dispensed Refills Start Date End Date Status Iron, Cbn & Take 1 tablet by 30 tablet 3 08/19/2017 Active Kgeg-XY-Z41-C-DSS mouth daily. (FERRALET 90 DUAL-IRON DELIVERY) 90-1-12-50 dx-cw-oqs-mg per tablet documented as of this encounter [...] Comments Blood Pressure 126/80 07/22/2019 11:07 AM RESPITE WORKER Pulse 96 07/22/2019 11:07 AM RESPITE WORKER Temperature 36.3 C (97.4 F) 07/22/2019 11:07 AM RESPITE WORKER Respiratory Rate 16 07/22/2019 11:07 AM RESPITE WORKER Oxygen Saturation - - Inhaled Oxygen Concentration - - Weight 114.3 kg (252 lb 1 oz) 07/22/2019 11:07 AM RESPITE WORKER Height 167.6 cm (5' 6") 07/22/2019 11:07 AM RESPITE WORKER Body Mass Index 40.68 07/22/2019 11:07 AM RESPITE WORKER documented in this encounter Progress Notes [...] N/A 11/04/2017 Surgeon: Bonita Leiva MD; Location: [facility] Labor and Delivery OR Location [place] ANESTH,KNEE AREA SURGERY Social History Socioeconomic History [...] file Gets together: Not on file Attends congregation service: Not on file Active member of [...] domestic abuse or violence. No cats. Mandaeism: Pentecostal Social History Substance and Sexual Activity Sexual Activity Yes Partners: Male control/protection: None Comment: last sexual intercourse 11/30/2018 Labs Labs are pending. Radiology No new radiology. Allergies Karen has No Known Allergies. Medications Karen has a current medication list which includes the following prescription(s): iron, cbn & qyhh-bx-i08-c-dss. Review of Systems Eyes: Negative for visual [...] visit time. ÁNGEL Gonzalez 07/22/2019 12:41 PM ITE WORKER documented in this encounter Plan of Treatment Date Type Specialty Care Team Description 07/29/2019 Routine Visit OB Satellites Tao Grande FNP [address] [address] 15 [phone] Name Type Priority Associated Diagnoses Date/Ti me GROUP B STREPTOCOCCUS BY LAB Routine Supervision of h igh risk 07/22/2019 11:55 AM PCR in third RESPITE WORKER trimester GC & CHLAMYDIA AMPLIFIED LAB Routine Supervision of h igh risk 07/22/2019 11:55 AM ASSAY in third RESPITE WORKER trimester CBC WITH DIFF LAB Routine Supervision of high risk 11:55 AM in third RESPITE WORKER trimester CBC WITH DIFFERENTIAL LAB Routine Supervision of high risk 07/22/2019 11:55 AM in third RESPITE WORKER trimester Health Maintenance Due Date Last [...] URINALYSIS Routine 07/22/2019 11:16 AM Supervision of [facility] Results for this RESPITE WORKER risk in procedure are in third trimester the results section. documented in this encounter Results POCT URINALYSIS W SPECIFIC GRAVITY (07/22/2019 11:16 AM RESPITE WORKER) Pathologist Sig nature POCT U SP [...] / Subscriber ID Effective Phone Address T [facility] xxxxxxxxx 2019-Mary Alice PENG Medic aid HEALTH CHOICE - HEALTH CHOICE nt [phone] 1 MANAGED MEDICAID [place], [place] [phone] documented as of this encounter Advance Directives Name Relationship Healthcare Agent Communication Relationship Lasosa Pérez Mother Primary healthcare agent
--- OUTSIDE RECORDS SUMMARY | 2019-11-04 13:57 | XMS REPORT | Summary of Care ---
:1995 Author Organization [facility] Address [address] [place] [address] Care Team Providers Name Role Phone George Grande [facility] Primary Care Provider Reason for Visit Reason Comments Abnormal Lab Anemia Encounter Details Date Type Department Care Team Description 07/24/2019 Telephone [facility]- George Grande, Ab normal Lab (Anemia) [facility] [address] [facility] [address] [place], [place] [phone] Allergies No Known Allergiesdocumented as of this encounter (statuses as of 07/24/2019) Medications Medication Sig Dispensed Refills Start Date End Date Status Iron, Cbn & Take 1 tablet by 30 tablet 3 08/19/2017 Active Jasw-OU-H56-C-DSS mouth daily. (FERRALET 90 DUAL-IRON DELIVERY) 90-1-12-50 xc-bb-qvm-mg per tablet ferrous sulfate 325 mg Take [...] 07/29/2019 Routine Visit OB Satellites Tao Grande, BOBCAT DRIVER/LABOR [address] [address] 15 [phone] Health Maintenance Due Date Last Done Comments [...] Plan / Subscriber ID Effective Phone Address [facility] xxxxxxxxx 2019-Mary Alice [address] Medic aid HEALTH CHOICE - HEALTH CHOICE nt [id number] 1 MANAGED MEDICAID [place], [place]ID [phone] documented as of this encounter Advance Directives Name Relationship Healthcare Agent Communication Relationship Marlin Elisa Mother Primary healthcare agent
--- OUTSIDE RECORDS SUMMARY | 2019-11-04 13:58 | XMS REPORT | Summary of Care ---
:[address] [facility] Address [address] [place] [address] Care Team Providers Name Role Phone George Grande [facility] Primary Care Provider Reason for Visit Reason Comments NURSE VISIT (Routine) Status Reason Specialty Diagnoses / Referred By Referred To Procedures Contact Contact New Request OB Satellites Diagnoses S/P section [place] Procedures DISCHARGE FOLLOW-UP: [facility] April Rowley MD [address] [facility] [id number] [place] [address] Encounter Details Date Type Department Care Team Description 08/18/2019 Nurse Visit [facility]- Jailene Grande CONTRACT COORDINATOR [address] [place] [address] Encounter for post [place] Visit, [facility] Nurse surgical wound check [address] [facility] (Primary Dx) [place] [address] Allergies No Known Allergiesdocumented as of this encounter (statuses as of 08/18/2019) Medications Medication Sig Dispensed Refills Start Date End Date Status Iron, Cbn & Take 1 tablet by 30 tablet 3 08/19/2017 Active Uvsp-MO-M82-C-DSS mouth daily. (FERRALET 90 DUAL-IRON DELIVERY) 90-1-12-50 ih-vi-gie-mg per tablet ferrous sulfate 325 mg Take [...] as of this encounter (statuses as of 08/18/2019) Active Problems Problem Noted Date 39 weeks [...] of high risk in third trimester 10/30/2016 documented as of this encounter (statuses as of 08/18/2019) Resolved Problems Problem Noted Date Resolved Date [...] as of this encounter (statuses as of 08/18/2019) Immunizations Name Administration Dates Next Due Tdap 05/25/2019, 10/03/2016 documented as of this encounter Social History Tobacco Use Types Packs/Day Years Used Date Never Smoker Smokeless Tobacco: Never Used Alcohol Use Drinks/Week oz/Week Comments No 0 Standard drinks or equivalent 0.0 Sex Assigned at Date Recorded Not on file Job Start Date Occupation Industry Not on file Not on file Not on file Travel History Travel Start Travel End No recent travel history available. documented as of this encounter Last Filed Vital Signs Vital Sign Reading Time Taken Comments Blood Pressure 132/82 08/18/2019 2:17 PM DETECTIVE AUTOMOBILE SECTION Pulse 72 08/18/2019 2:17 PM DETECTIVE AUTOMOBILE SECTION Temperature 36.1 C (97 F) 08/18/2019 2:17 PM DETECTIVE AUTOMOBILE SECTION Respiratory Rate 16 08/18/2019 2:17 PM DETECTIVE AUTOMOBILE SECTION Oxygen Saturation - - Inhaled Oxygen Concentration - - Weight 107.2 kg (236 lb 5 oz) 08/18/2019 2:17 PM DETECTIVE AUTOMOBILE SECTION Height 167.6 cm (5' 6") 08/18/2019 2:17 PM DETECTIVE AUTOMOBILE SECTION Body Mass Index 38.14 08/18/2019 2:17 PM DETECTIVE AUTOMOBILE SECTION documented in this encounter Patient Instructions Patient InstructionsJanet Shaw LVN - 08/18/2019 2:00 PM DETECTIVE AUTOMOBILE SECTION Incision Care Remember: Follow-up visits allow your healthcare provider to make sure your incision is healing well. Keep your appointments. Home care Tips for home care include the following: Always wash with soap and dry your hands before touching your incision. Keep your incision clean and dry. Don't do things that could cause dirt or sweat to get on your incision. Dont pick at scabs. They help protect the wound. Keep your incision dry, and out of water. Take a sponge bath to avoid getting your incision wet. Ask your provider when can you take a shower or bath. Ask your provider about the best way to keep your incision dry when bathing or showering. Pat stitches dry if they get wet. Dont rub. Leave the bandage (dressing) in place until you are told to remove it or change it. Change it only as directed, using clean hands. After the first 12 hours, change your dressing every 24 hours, or as directed by your healthcare provider. Change your dressing if it gets wet or soiled. Care for types of closures Follow these guidelines: Stitches or alexandrea. Once you no longer need to keep these dry, clean the wound daily. First remove the bandage using clean hands. Then wash the area gently with soap and warm water. Finally, put jose new bandage. Skin glue. Dont put liquid, ointment, or cream on your wound while the glue is in place.Don't do activities that cause heavy sweating. Protect the wound from sunlight. Do not scratch, rub, or pick at the glue. Do not put tape directly over the glue.The glue should peel off within 5 to 10 days. Surgical tape. Keep the area dry. If it gets wet, blot the area dry with a clean towel. Surgical tape usually falls off within 7 to 10 days. If it has not fallen off after 10 days, contact your healthcare provider before taking it off yourself. If you are told to remove the tape,put mineral oil or petroleum jelly on a cotton ball. Gently rub the tape until it is removed. Changing your dressing Leave the dressing (bandage) in place until you are told to remove it or change it. Follow the instructions below unless told otherwise by your healthcare provider: Always wash your hands before changing your dressing. After the first48 hours, the incision wound usually will have closed. If it has, uncover the incision and leave it open to the air.If the incision has not closed, keep it covered. Cover your incision only if your clothing is rubbing it or causingirritation, or if it is stilldraining. Change your dressing if it gets wet or soiled. Follow-up care Follow up with your healthcare provider to ask how long sutures or alexandrea should be left in place. Be sure to return for stitch or staple removal as directed. If dissolving stitches were used in an area such as your mouth, these will not need to be removed. They should fall out or dissolve on their own. If tape closures were used, remove them yourself when your provider recommends if they have not fallen off on their own. Ifskin glue was used, the glue will wear off by itself. When to call your healthcare provider Call your healthcare provider if you have any of the below: Pain, redness, swelling, or bleeding that gets worse Smelly fluid from the incision Fever of 100.4F ( 38C) or higher Shaking or chills Vomiting or nausea that doesn't go away Numbness, coldness, or tingling around the incision Changes in skin color around the incision Opening of the wound Stitches that pull apart [place] that fall out Surgical tape that falls off before 7 days ServiceFrame last reviewed this educational content on 03/01/201919995698-0496 The organgir.am. [address] [place] [address], [place] [address]. All rights reserved. This information is not intended as a substitute for professional medical care. Always follow your healthcare professional's instructions. Understanding Depression Youve just had a baby. You expected to be excited and happy. But instead you find yourself cryingfor no reason. You may have trouble coping with your daily tasks. You feel sad, tired, and hopeless most of the time. You may even feel ashamed or guilty. But what youre going through is not your fault and you can feel better. Talk to your healthcare provider. He or she can help. What is depression? Depression is a mood disorder that affects the way you think and feel. The most common symptom is a feeling of deep sadness. You may also feel as if you just cant cope with life. Other symptoms include: Gaining or losing a lot of weight Sleeping too much or too little Feeling tired all the time Feeling restless Crying a lot Having too little or too much appetite. Withdrawing from friends and family Having headaches, aches and pains, or stomach problems that won't go away. Fears of harming your baby Lack of interest in your baby Feeling worthless or guilty No longer finding pleasure in things you used to Having trouble thinking clearly or making decisions Thinking about or suicide Depression after childbirth You may be weepy and tired right after giving . These feelings are normal. Theyre sometimes called the baby blues. These blues go away after 1 to 2 weeks. However, (meaning after ) depression lasts much longer and is more severe than the "baby blues." It can make you feel sad and hopeless. You may also fear that your baby will be harmed and worry about being a bad mother. What causes depression? The exact cause of depression is unknown. Changes in brain chemistry or structure are believed to play a big role in depression.It may be due to changes in your hormones during and after childbirth. You may also be tired from caring for your baby and adjusting to being a mother. All thesefactors may make you feel depressed. In some cases, your genes may also play a role. Depression can be treated There are many ways to treat depression. Talking to your healthcare provider is the firststep toward feeling better. When to call your healthcare provider Call your healthcare provider if you: Cry for no clear reason Have trouble sleeping, eating, and making choices Questions whether you can handle caring for a baby Have intense feelings of sadness, anxiety, or despair that prevent you from being able to do yourdaily tasks Resources National Union of Mental Soewph915-790-8978lha.nimh.nih.gov National [place] on Mental Hwejkep371-248-1149lzs.ashley.org Mental Health Mlzglqu789-207-0539fqj.[facility].org National Suicide Ykkzbzt093-134-1398 (800-SUICIDE) Amarilis last reviewed this educational content on 12/29/201619999377-1832 The organgir.am. [address] [place] [address]. All rights reserved. This information is not intended as a substitute for professional medical care. Always follow your healthcare professional's instructions. CTIVE AUTOMOBILE SECTION documented in this encounter Progress Notes Janet Shaw LVN - 08/18/2019 2:00 PM CSTNurse Visit:: Patient in clinic for staple removal. Delivered 08/11/2019 Pt voiding and stooling without difficulties, not constipated . Pt eating well and drinking water daily. She is breast and bottle feeding. care no concerns voiced has help at home. She denies depression/suicidal/homocial ideation, Denies any domestic violence. LT incision well approximated and intact no superficial wound separation. No ss of infection, induration or wound opening noted, has steri-strips applied. C/S inc care reviewed and warning S/S given ER warnings discussed, she voiced understanding and agrees with plan. CTIVE AUTOMOBILE SECTION documented in this encounter Plan of Treatment Date Type Specialty Care Team Description 09/01/2019 Routine Visit [facility] Satellites [facility] Santiago[facility] [address] [address] [phone] Health Maintenance Due Date Last Done Comments WELL CARE VISIT: -09/05/2019 Postponed from YEARS (yearly) 2009 ([place] Guidelines) HPV VACCINES (1 - Female 06/12/2020 Postpon [...] this encounter Visit Diagnoses Diagnosis Encounter for post surgical wound check - Primary documented in this encounter Insurance Payer Benefit Plan / Subscriber ID Effective Phone Address T [facility] xxxxxxxxx 2019-Mary Alice [address] Medic aid HEALTH CHOICE - HEALTH CHOICE nt [id number] 1 MANAGED MEDICAID [place], [place] MED[place] [phone] (Home) [place] [address] documented as of this encounter Advance Directives Name Relationship Healthcare Agent Communication Relationship Mjvito Pérez Mother Primary healthcare agent
--- OUTSIDE RECORDS SUMMARY | 2019-11-04 13:58 | XMS REPORT | Summary of Care ---
:1995 Author Organization [employer] Address [address] [place] [address] Care Team Providers Name Role Phone George Grande IV THERAPY NURSE Primary Care Provider Reason for Visit Reason Comments Care Encounter Details Date Type Department Care Team Description 08/05/2019 Routine [facility]- George Grande upervision of high risk in third trimester (Primary Dx); Visit ÁNGEL Marina Previous delivery affecting pre gnancy, antepartum; [address] [place] [address] (vaginal after ) trial; [place], [place] GBS (group B Streptococcus carrier), +RV culture, currently ; [address] [place], [place] Multiparity; [phone] Obesity in [phone] Allergies No Known Allergiesdocumented as of this encounter (statuses as of 08/05/2019) Medications Medication Sig Dispensed Refills Start Date End Date Status Iron, Cbn & Take 1 tablet by 30 tablet 3 08/19/2017 Active Tozh-AT-I91-C-DSS mouth daily. (FERRALET 90 DUAL-IRON DELIVERY) 90-1-12-50 dl-qn-iga-mg per tablet ferrous sulfate 325 mg Take [...] as of this encounter (statuses as of 08/05/2019) Active Problems Problem Noted Date GBS (group [...] as of this encounter (statuses as of 08/05/2019) Resolved Problems Problem Noted Date Resolved Date [...] as of this encounter (statuses as of 08/05/2019) Immunizations Name Administration Dates Next Due Tdap [...] Sign Reading Time Taken Comments Blood Pressure 127/72 08/05/2019 1:15 PM MEMBERSHIP ADMINISTRATOR Pulse 84 08/05/2019 1:15 PM MEMBERSHIP ADMINISTRATOR Temperature 35.9 C (96.6 F) 08/05/2019 1:15 PM MEMBERSHIP ADMINISTRATOR Respiratory Rate 16 08/05/2019 1:15 PM MEMBERSHIP ADMINISTRATOR Oxygen Saturation - - Inhaled Oxygen Concentration - - Weight 117.7 kg (259 lb 6 oz) 08/05/2019 1:15 PM MEMBERSHIP ADMINISTRATOR Height 167.6 cm (5' 6") 08/05/2019 1:15 PM MEMBERSHIP ADMINISTRATOR Body Mass Index 41.86 08/05/2019 1:15 PM MEMBERSHIP ADMINISTRATOR documented in this encounter Progress Notes George Grande FNP - 08/05/2019 12:45 PM CST Chief complaint: Chief Complaint Patient presents with Care HPI CC: Follow Up Visit Karen Pérez is a 23 year old, , Black or female. Patient's last menstrual period was 11/10/2018 (exact date). She is 38w2d with an intrauterine . Her estimateddate of delivery is 08/17/2019, by Last Menstrual Period. She has no complaints today. She reports +FM and denies contractions, LOF and bleeding today.Reviewed OB/ER, PIH, labor and movement precautions. Encouraged patient to go to [facility] for any signs and symptoms of labor (regular contractions, LOF, vaginal bleeding or decrease movement.Patient denies current or past physical, sexual or [...] N/A 11/04/2017 Surgeon: Bonita Leiva MD; Location: [facility] Labor and Delivery OR Location [place] ANESTH,KNEE AREA SURGERY Social History Socioeconomic History [...] file Gets together: Not on file Attends gnosticist service: Not on file Active member of [...] No domestic abuse or violence. No cats. Restorationism: Islam Social History Substance and Sexual Activity Sexual Activity Yes Partners: Male control/protection: None Comment: last sexual intercourse 11/30/2018 Labs Labs are pending. Radiology No new radiology. Allergies Karen has No Known Allergies. Medications Karen has a current medication list which includes the following prescription(s): ascorbic acid (vitamin c), ferrous sulfate, and iron, cbn & jvor-ng-f70-c-dss. Review of Systems Eyes: Negative for visual disturbance. Cardiovascular: Negative for leg swelling. Gastrointestinal: Negative for abdominal pain, nausea and vomiting. Genitourinary: Negative for vaginal bleeding, vaginal discharge and pelvic pain. Neurological: Negative for headaches. BP 127/72 (BP Location: Right arm, Patient Position: Sitting, BP CUFF SIZE: Adult Medium) | Pulse 84 | Temp 35.9 C (96.6 F) (Oral) | Resp 16 | Ht 5' 6" (1.676 m) | Wt 259 lb 6 oz (117.7 kg) |LMP 11/10/2018 (Exact Date) | BMI 41.86 kg/m Pregravid BMI: 39.4 Physical Exam PHYSICAL: General Exam: Neurological: Normal Abdomen: Normal Extremities: Normal Pelvic Exam: Uterus: 40cm Weeks Assessment/Plan Supervision of high risk in third trimester (primary encounter diagnosis) Previous delivery affecting , antepartum [address] (vaginal after ) trial GBS (group B Streptococcus carrier), +RV culture, currently [place]ip[place] Comment: Routine Visit Plan: POCT URINALYSIS [...] 50% of the visit time. ÁNGEL Gonzalez 08/05/2019 2:01 PM ERSHIP ADMINISTRATOR documented in this encounter Plan of Treatment Date Type Specialty Care Team Description 08/10/2019 Routine Visit OB Satellites Tao Grande FNP [address] [address] 15 [phone] Health Maintenance Due Date Last Done Comments WELL CARE VISIT: 06-2009/04/2009 YEARS (yearly) HPV VACCINES (1 - Female [...] Associated Diagnosis Comme nts POCT URINALYSIS Routine 08/05/2019 1:17 PM Supervision of maya orellana Results for this MEMBERSHIP ADMINISTRATOR risk in procedure are in third trimester the results section. documented in this encounter Results POCT URINALYSIS W SPECIFIC GRAVITY (08/05/2019 1:17 PM MEMBERSHIP ADMINISTRATOR) Pathologist Sig nature POCT U SP GRAV [...] +RV culture, currently Supervision of other high-risk [place] Obesity in Obesity complicating , childbir th, or the puerperium, unspecified as to episode of care or not applicable documented in this encounter Insurance Payer Benefit Plan / Subscriber ID Effective Phone Address T ype Group [facility] xxxxxxxxx 2019-Mary Alice [address] Medic aid HEALTH CHOICE - HE[place] nt [phone] 1 MANAGED MEDICAID [place], [place] [phone] documented as of this encounter Advance Directives Name Relationship Healthcare Agent Communication Relationship Reynaaminah Pérez Mother Primary healthcare agent
--- OUTSIDE RECORDS SUMMARY | 2019-11-04 13:58 | XMS REPORT | Summary of Care ---
:1995 Author Organization [facility] Address [address] [place] [address] Care Team Providers Name Role Phone George Grande ROLLER ENGRAVER Primary Care Provider Reason for Visit Reason Comments Care Encounter Details Date Type Department Care Team Description 07/29/2019 Routine [facility]- George Grande upervision of high risk in third trimester (Primary Dx); Visit ÁNGEL Marina [address] (vaginal after dejah an) trial; [address] [place] [address] GBS (group B Streptococcus c arrier), +RV culture, currently ; [place], [place] Previous delivery affecting pre gnancy, antepartum; [address] [place], [place] Sickle cell trait; [phone] [address] of child; [phone] Multiparity; [phone] Obesity in preg mundo (Fax) Allergies No Known Allergiesdocumented as of this encounter (statuses as of 07/29/2019) Medications Medication Sig Dispensed Refills Start Date End Date Status Iron, Cbn & Take 1 tablet by 30 tablet 3 08/19/2017 Active Xvrl-YM-B41-C-DSS mouth daily. (FERRALET 90 DUAL-IRON DELIVERY) 90-1-12-50 tk-ly-cxd-mg per tablet ferrous sulfate 325 mg Take [...] Comments Blood Pressure 134/75 07/29/2019 11:08 AM SPECIAL EVENTS MANAGER Pulse 95 07/29/2019 11:08 AM SPECIAL EVENTS MANAGER Temperature 36.6 C (97.9 F) 07/29/2019 11:08 AM SPECIAL EVENTS MANAGER Respiratory Rate 16 07/29/2019 11:08 AM SPECIAL EVENTS MANAGER Oxygen Saturation - - Inhaled Oxygen Concentration - - Weight 114.8 kg (253 lb 2 oz) 07/29/2019 11:08 AM SPECIAL EVENTS MANAGER Height 167.6 cm (5' 6") 07/29/2019 11:08 AM SPECIAL EVENTS MANAGER Body Mass Index 40.86 07/29/2019 11:08 AM SPECIAL EVENTS MANAGER documented in this encounter Progress Notes George [...] 11/04/2017 Surgeon: Bonita Leiva MD; Location: [facility] Labor and Delivery OR Location [place] ANESTH,KNEE [...] file Gets together: Not on file Attends roman catholic service: Not on file Active member of [...] No domestic abuse or violence. No cats. Caodaism: Mosque Social History Substance and Sexual Activity Sexual Activity Yes Partners: Male control/protection: None Comment: last sexual intercourse 11/30/2018 Labs No new labs Radiology No new radiology. Allergies Karen has No Known Allergies. Medications Karen has a current medication list which includes the following prescription(s): ascorbic acid (vitamin c), ferrous sulfate, and iron, cbn & ttsu-ka-f90-c-dss. Review of Systems Eyes: Negative for visual [...] visit time. ÁNGEL Gonzalez 07/29/2019 11:24 AM IAL EVENTS MANAGER documented in this encounter Plan of Treatment Date Type Specialty Care Team Description 08/05/2019 Routine Visit OB Satellites Tao Grande FNP [address] [address] 15 [phone] Health Maintenance Due Date Last Done Comments [...] esults for this GLUCOSE & PROTEIN AM SPECIAL EVENTS MANAGER risk in [facility] sesar are in third trimester the results section. documented in this encounter Results POCT URINALYSIS GLUCOSE & PROTEIN (07/29/2019 11:12 AM SPECIAL EVENTS MANAGER) Pathologist Sig nature POCT U PROT trace [...] ID Effective Phone Address T e Group [facility] xxxxxxxxx 2019-Mary Alice [address] Medic aid HEALTH CHOICE - HEALTH CHOICE nt [phone] 1 MANAGED MEDICAID [place], [place] [phone] documented as of this encounter Advance Directives Name Relationship Healthcare Agent Communication Relationship Billiesosa Pérez Mother Primary healthcare agent
--- OUTSIDE RECORDS SUMMARY | 2019-11-04 13:59 | XMS REPORT | Summary of Care ---
:1995 Author Organization [facility] [employer] Address [address] [place] [address] Care Team Providers Name Role Phone George Grande Tao BAKERY AND DELI SALES MANAGER Primary Care Provider Reason for Visit Reason Comments Care 3WK Encounter Details Date Type Department Care Team Description 09/01/2019 Routine [facility]- Melanie Santiago ne Visit Troy Sarai Brice RENEP follow-up (Primary [address] Dx) [place], [place] [address] [facility] [phone] [place] [address] Allergies No Known Allergiesdocumented as of this encounter (statuses as of 09/01/2019) Medications Medication Sig Dispensed Refills Start Date End Date Status Iron, Cbn & Take 1 tablet by 30 tablet 3 08/19/2017 Active Mcpa-JK-P39-C-DSS mouth daily. (FERRALET 90 DUAL-IRON DELIVERY) 90-1-12-50 nn-ql-tpk-mg per tablet ferrous sulfate 325 mg Take [...] as of this encounter (statuses as of 09/01/2019) Active Problems Problem Noted Date Routine follow-up 09/01/2019 Sickle cell trait 12/09/2018 of child 12/09/2018 Obesity (BMI 30-39.9) 12/09/2018 documented as of this encounter (statuses as of 09/01/2019) Resolved Problems Problem Noted Date Resolved Date 39 weeks gestation of 08/10/2019 09/01/19 20 GBS (group B Streptococcus carrier), +RV culture, currently 07/24/2019 09/01/2019 Overview: Address in labor and delivery. 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 Since the patient is subgroup of A with an anti-A1 antibody, the patient will be transfused with group O RBCs if needed. - For assistance, please contact the [facility] service. Trichomoniasis 12/11/2018 09/01/2019 Previous delivery affecting , antepartum 0 12/09/2018 09/01/2019 Multiparity 12/09/2018 09/01/2019 Normal labor 11/04/2017 11/12/2017 40 weeks gestation [...] 11/02/2016 11/04/2017 Obesity (BMI 30-39.9) 11/02/2016 11/04/2017 Supervision of high risk in third trimester 201609/01/2019 Insufficient care, third trimester 10/30/2016 12/30/2018 Polyhydramnios, antepartum complication, third trimester, no t 10/30/2016 11/04/2017 applicable or unspecified fetus documented as of this encounter (statuses as of 09/01/2019) Immunizations Name Administration Dates Next Due Tdap [...] Sign Reading Time Taken Comments Blood Pressure 121/69 09/01/2019 9:29 AM DIRECTOR HR COMMUNICATIONS Pulse 76 09/01/2019 9:29 AM DIRECTOR HR COMMUNICATIONS Temperature 36.1 C (97 F) 09/01/2019 9:29 AM DIRECTOR HR COMMUNICATIONS Respiratory Rate 16 09/01/2019 9:29 AM DIRECTOR HR COMMUNICATIONS Oxygen Saturation - - Inhaled Oxygen Concentration - - Weight 106.8 kg (235 lb 6 oz) 09/01/2019 9:29 AM DIRECTOR HR COMMUNICATIONS Height 167.6 cm (5' 6") 09/01/2019 9:29 AM DIRECTOR HR COMMUNICATIONS Body Mass Index 37.99 09/01/2019 9:29 AM DIRECTOR HR COMMUNICATIONS documented in this encounter Progress Notes JoseSarai house, WHCNP - 09/01/2019 9:00 AM CST Chief complaint: Chief Complaint Patient presents with Care 3WK HPI The patient is here for a routine PP visit. She has no complaints today. She states that she is /formula feeding her infant, is bonding well, and coping well with less sleep. She reports that she has no pain, small lochia, and denies all s/s of PP depression. She wants depo for PP contraception. Histories OB History Para Term AB Living 3 3 3 0 0 2 SAB TAB Ectopic Multiple Live Births 0 0 0 0 3 # Outcome Date GA Lbr Floyd/2nd Weight Sex Delivery Anes PTL Lv 3 Term 08/11/19 39w1d 8 lb 6.9 oz (3.825 kg) M , L Spinal SINGH 2 Term 11/04/17 40w4d 8 lb 7 [...] N/A 11/04/2017 Surgeon: Bonita Leiva MD; Location: [facility] Labor and Delivery OR Location SECTION N/A 08/11/2019 Surgeon: April Rayo MD; Location: Labor and Delivery [place] ANESTH,KNEE AREA SURGERY Social History Socioeconomic History [...] file Gets together: Not on file Attends adventism service: Not on file Active member of [...] No domestic abuse or violence. No cats. Mormon: Christianity Social History Substance and Sexual Activity Sexual Activity Yes Partners: Male control/protection: None Comment: last sexual intercourse 11/30/2018 Labs No new labs and Admission on 08/10/2019, Discharged on 08/13/2019 Component Date Value HBsAg 08/10/2019 Negative HBsAg Semi-Quantitative 08/10/2019 0.04 Syphilis IgG/IgM 08/10/2019 Non-reactive BASE EXCESS, CORD 08/11/2019 -6.3 AC PH, CORD (BEAKER) 08/11/2019 7.17* PC02, CORD 08/11/2019 66 PO2, CORD 08/11/2019 <10* BICARBONATE, CORD 08/11/2019 24 VENOUS BASE EXCESS, CORD 08/11/2019 -4.5 VENOUS PH, CORD 08/11/2019 7.25 VENOUS PC02, CORD 08/11/2019 55* VENOUS PO2, CORD 08/11/2019 17 VENOUS BICARBONATE, CORD 08/11/2019 24 WBC 08/10/2019 11.34* RBC 08/10/2019 4.33 HGB 08/10/2019 9.3* HCT 08/10/2019 31.1* MCV 08/10/2019 71.8* MCH 08/10/2019 21.5* MCHC 08/10/2019 29.9* RDW-SD 08/10/2019 47.4 RDW-CV 08/10/2019 18.6* PLT 08/10/2019 297 MPV 08/10/2019 9.6 NRBC/100 WBC 08/10/2019 0.0 NRBC x10^3 08/10/2019 <0.01 GRAN MAT (NEUT) % 08/10/2019 80.9 IMM GRAN % 08/10/2019 0.50 LYMPH % 08/10/2019 12.3 MONO % 08/10/2019 5.7 EOS % 08/10/2019 0.4 BASO % 08/10/2019 0.2 GRAN MAT x10^3(ANC) 08/10/2019 9.17* IMM GRAN x10^3 08/10/2019 0.06 LYMPH x10^3 08/10/2019 1.39 MONO x10^3 08/10/2019 0.65 EOS x10^3 08/10/2019 0.05 BASO x10^3 08/10/2019 <0.03 IAT 08/10/2019 Negative ABO & RH 08/10/2019 A Positive RHIG CANDIDATE? 08/10/2019 No- see comment WBC 08/11/2019 11.09 RBC 08/11/2019 4.00 HGB 08/11/2019 8.5* HCT 08/11/2019 28.6* MCV 08/11/2019 71.5* MCH 08/11/2019 21.3* MCHC 08/11/2019 29.7* RDW-SD 08/11/2019 47.5 RDW-CV 08/11/2019 18.6* PLT 08/11/2019 288 MPV 08/11/2019 10.6 IPF % 08/11/2019 4.5 NRBC/100 WBC 08/11/2019 0.0 NRBC x10^3 08/11/2019 <0.01 GRAN MAT (NEUT) % 08/11/2019 80.2 IMM GRAN % 08/11/2019 0.50 LYMPH % 08/11/2019 10.2 MONO % 08/11/2019 8.0 EOS % 08/11/2019 0.8 BASO % 08/11/2019 0.3 GRAN MAT x10^3(ANC) 08/11/2019 8.89* IMM GRAN x10^3 08/11/2019 0.06 LYMPH x10^3 08/11/2019 1.13* MONO x10^3 08/11/2019 0.89 EOS x10^3 08/11/2019 0.09 BASO x10^3 08/11/2019 0.03 ANTIBODY ID 08/10/2019 Anti-A1 Routine Visit on 08/10/2019 Component Date Value POCT U SP GRAV 08/10/2019 . POCT PH U 08/10/2019 . POCT U LEUK EST 08/10/2019 . POCT U NIT 08/10/2019 . POCT U PROT 08/10/2019 trace POCT U GLU 08/10/2019 neg POCT U KETONE 08/10/2019 . POCT U UROBILI 08/10/2019 . POCT U BILI 08/10/2019 . POCT U BLD 08/10/2019 . POCT U COLOR 08/10/2019 . POCT U APPEAR 08/10/2019 . Routine Visit on 08/05/2019 Component Date Value POCT U SP GRAV 08/05/2019 . POCT PH U 08/05/2019 . POCT U LEUK EST 08/05/2019 . POCT U NIT 08/05/2019 . POCT U PROT 08/05/2019 trace POCT U GLU 08/05/2019 neg POCT U KETONE 08/05/2019 . POCT U UROBILI 08/05/2019 . POCT U BILI 08/05/2019 . POCT U BLD 08/05/2019 . POCT U COLOR 08/05/2019 . POCT U APPEAR 08/05/2019 . Routine Visit on 07/29/2019 Component Date Value POCT U PROT 07/29/2019 trace POCT U GLU 07/29/2019 neg Routine Visit on 07/22/2019 Component Date Value POCT U SP GRAV 07/22/2019 . POCT PH U 07/22/2019 . POCT U LEUK EST 07/22/2019 . POCT U NIT 07/22/2019 . POCT U PROT 07/22/2019 trace POCT U GLU 07/22/2019 negative POCT U KETONE 07/22/2019 . POCT U UROBILI 07/22/2019 . POCT U BILI 07/22/2019 . POCT U BLD 07/22/2019 . Group B Streptococcus by* 07/22/2019 Positive* C. trachomatis Nucleic A* 07/22/2019 Negative N. gonorrhoeae Nucleic A* 07/22/2019 Negative WBC 07/22/2019 10.86 RBC 07/22/2019 4.60 HGB 07/22/2019 9.9* HCT 07/22/2019 32.8* MCV 07/22/2019 71.3* MCH 07/22/2019 21.5* MCHC 07/22/2019 30.2* RDW-SD 07/22/2019 46.3 RDW-CV 07/22/2019 18.3* PLT 07/22/2019 318 MPV 07/22/2019 10.9 IPF % 07/22/2019 3.1 NRBC/100 WBC 07/22/2019 0.2 NRBC x10^3 07/22/2019 0.02 GRAN MAT (NEUT) % 07/22/2019 79.3 IMM GRAN % 07/22/2019 0.60 LYMPH % 07/22/2019 12.2 MONO % 07/22/2019 6.8 EOS % 07/22/2019 0.8 BASO % 07/22/2019 0.3 GRAN MAT x10^3(ANC) 07/22/2019 8.61* IMM GRAN x10^3 07/22/2019 0.07* LYMPH x10^3 07/22/2019 1.32 MONO x10^3 07/22/2019 0.74 EOS x10^3 07/22/2019 0.09 BASO x10^3 07/22/2019 0.03 ELLIPTO/OVAL 07/22/2019 2+* Routine Visit on 07/06/2019 Component Date Value POCT U SP GRAV 07/06/2019 . POCT PH U 07/06/2019 . POCT U LEUK EST 07/06/2019 . POCT U NIT 07/06/2019 . POCT U PROT 07/06/2019 trace POCT U GLU 07/06/2019 negative POCT U KETONE 07/06/2019 . POCT U UROBILI 07/06/2019 . POCT U BILI 07/06/2019 . POCT U BLD 07/06/2019 . URINE CULTURE 07/06/2019 > 100,000 CFU/mL mixed aerobic organisms - suggests endogenous microbial contamination Routine Visit on 06/22/2019 Component Date Value POCT U PROT 06/22/2019 neg POCT U GLU 06/22/2019 neg URINE CULTURE 06/22/2019 > 100,000 CFU/mL mixed aerobic organisms - suggests endogenous microbial contamination Routine Visit on 06/09/2019 Component Date Value POCT U PROT 06/09/2019 negative POCT U GLU 06/09/2019 negative URINE CULTURE 06/09/2019 > 100,000 CFU/mL mixed aerobic organisms - suggests endogenous microbial contamination Radiology No new radiology. Allergies Karen has No Known Allergies. Medications Karen has a current medication list which includes the following prescription(s): docusate calcium, ferrous sulfate, hydrocodone-acetaminophen, ibuprofen, vitamin w/fa, simethicone, ascorbic acid (vitamin c), ferrous sulfate, and iron, cbn & gzxf-ah-t25-c-dss. Review of Systems Constitutional: Negative. HENT: Negative. Eyes: Negative. Respiratory: Negative. Breasts: Negative. Cardiovascular: Negative. Gastrointestinal: Negative. Genitourinary: Positive for vaginal bleeding. Musculoskeletal: Negative. Skin: Negative. Neurological: Negative. Psychiatric/Behavioral: Negative. Endocrine: Endocrine negative BP 121/69 (BP Location: Right arm, Patient Position: Sitting, BP CUFF SIZE: Adult Large) | Pulse 76 | Temp 36.1 C (97 F) (Oral) | Resp 16 | Ht 5' 6" (1.676 m) | Wt 235 lb 6 oz (106.8 kg) | LMP 11/10/2018 (Exact Date) | BMI 37.99 kg/m Pregravid BMI: 39.4 Physical Exam Vitals reviewed. Constitutional: She is oriented to person, place, and time. She appears well- developed, well-nourished and well-groomed. Cardiovascular: Regular rate and rhythm. No peripheral edema present. Pulmonary/Chest: Normal inspiratory effort. Abdominal: Abdomen is soft. Normal appearance. No mass palpated. No tenderness present. There is no hepatosplenomegaly, splenomegaly or hepatomegaly. There is no rigidity and no guarding. No hernia palpated or inspected. Fundus firm Neuro/Psychiatric: She has a normal mood and affect. She is oriented to person, place, and time. Skin: Skin normal. C section site well approximated, no redness, tenderness or drainage noted Breast: Right breast exhibits no mass, no nipple discharge and no tenderness. Left breast exhibits no mass, no nipple discharge and no tenderness. Breasts are symmetrical. Normal left breast and normalright breast Rectal: Rectal exam with normal anal tone. No mass, no external hemorrhoid and no internal hemorrhoid palpated or inspected. normal rectum External genitalia: Normal external genitalia appropriate for age. Normal hair distribution. No labial lesion. Vagina:No lesion inspected. Normal estrogen effect. Normal support. Vaginal discharge found. Lochia WNL, small rubra Uterus: Uterus is normal size, normal contour, normal position and non-tender. Involution WNL Normal uterus Assessment/Plan Return to clinic in 3 weeks. Routine follow-up (primary encounter diagnosis) Comment: routine Plan: return to clinic in 3 weeks This visit did not involve counseling and coordination that comprised more than 50% of the visit time. ED Craig 09/01/2019 10:04 AM Raza Muro RN - 09/01/2019 9:00 AM CSTPt in clinic today for 3 wk pp visit. 1) Delivery method 2) Patient delivered on 08/11/19 at [facility] 3) Patient is currently bottlefeeding 4) Desired BCM: depo 5) Patient denies pp depression. RAZA WILEY RN 09/01/2019 9:36 AM CTOR HR COMMUNICATIONS documented in this encounter Plan of Treatment Date Type Specialty Care Team Description 09/22/2019 Office Visit OB Satellites George Grande, BAKERY AND DELI SALES MANAGER [address] [address] [phone] Health Maintenance Due Date Last Done Comments [...] filedocumented in this encounter Visit Diagnoses Diagnosis Routine follow-up - Primary documented in this encounter Insurance Payer Benefit Plan / Subscriber ID Effective Phone Address T [facility] xxxxxxxxx 2019-[employer] [address] Medic aid HEALTH CHOICE - HEALTH CHOICE nt [id number] 1 MANAGED MEDICAID [place], [place]ID [phone] documented as of this encounter Advance Directives Name Relationship Healthcare Agent Communication Relationship BillieAmyaminahvito Pérez Mother Primary healthcare agent
--- OUTSIDE RECORDS SUMMARY | 2019-11-04 13:59 | XMS REPORT | Summary of Care ---
:1995 Author Organization [facility] [employer] Address [address] [place] [address] Care Team Providers Name Role Phone George Grande Tao RN LPN LVN Primary Care Provider Reason for Visit Reason Comments Care 3WK Encounter Details Date Type Department Care Team Description 09/01/2019 Routine [facility] Health [facility]- Melanie Santiago ne Visit [place] Sarai Brice RENEP follow-up (Primary [address]) [place], [place] [address] [facility] [phone] [place] [address] Allergies No Known Allergiesdocumented as of this encounter (statuses as of 09/01/2019) Medications Medication Sig Dispensed Refills Start Date End Date Status Iron, Cbn & Take 1 tablet by 30 tablet 3 08/19/2017 Active Maaw-ET-G67-C-DSS mouth daily. (FERRALET 90 DUAL-IRON DELIVERY) 90-1-12-50 aj-wq-axc-mg per tablet ferrous sulfate 325 mg Take [...] - For assistance, please contact the [facility] Medicine service. Trichomoniasis 12/11/2018 09/01/2019 Previous delivery [...] Comments Blood Pressure 121/69 09/01/2019 9:29 AM CORE CHECKER Pulse 76 09/01/2019 9:29 AM CORE CHECKER Temperature 36.1 C (97 F) 09/01/2019 9:29 AM CORE CHECKER Respiratory Rate 16 09/01/2019 9:29 AM CORE CHECKER Oxygen Saturation - - Inhaled Oxygen Concentration - - Weight 106.8 kg (235 lb 6 oz) 09/01/2019 9:29 AM CORE CHECKER Height 167.6 cm (5' 6") 09/01/2019 9:29 AM CORE CHECKER Body Mass Index 37.99 09/01/2019 9:29 AM CORE CHECKER documented in this encounter Progress Notes JoseSarai [...] N/A 11/04/2017 Surgeon: Bonita Leiva MD; Location: [facility] Labor and Delivery OR Location SECTION N/A 08/11/2019 Surgeon: April Rayo MD; Location: Labor and Delivery - [place] ANESTH,KNEE AREA SURGERY Social History Socioeconomic [...] file Gets together: Not on file Attends pentecostal service: Not on file Active member of [...] No domestic abuse or violence. No cats. Uatsdin: Anabaptism Social History Substance and Sexual Activity Sexual [...] c), ferrous sulfate, and iron, cbn & vkip-me-w80-c-dss. Review of Systems Constitutional: Negative. HENT: Negative. [...] method 2) Patient delivered on 08/11/19 at [facility] 3) Patient is currently bottlefeeding 4) Desired BCM: depo 5) Patient denies pp depression. RAZA WILEY RN 09/01/2019 9:36 AM CHECKER documented in this encounter Plan of Treatment Date Type Specialty Care Team Description 09/22/2019 Office Visit [facility] George Grande, RN LPN LVN [address] [address] [phone] Health Maintenance Due Date Last Done Comments [...] Subscriber ID Effective Phone Address T [facility] xxxxxxxxx 2019-Presadal [address] Medic aid HEALTH CHOICE - HEALTH CHOICE nt [id number] 1 MANAGED MEDICAID [place], [place]ID [phone] documented as of this encounter Advance Directives Name Relationship Healthcare Agent Communication Relationship BillieAmyaminahvito Pérez Mother Primary healthcare agent
--- OUTSIDE RECORDS SUMMARY | 2019-11-04 13:59 | XMS REPORT | Summary of Care ---
:1995 Author Organization [facility] [employer] Address [address] [place] [address] Care Team Providers Name Role Phone George Grande Tao ESTIMATOR PAPERBOARD BOXES Primary Care Provider Reason for Visit Reason Comments Care 3WK Encounter Details Date Type Department Care Team Description 09/01/2019 Routine [facility] Health [facility]- Melanie Santiago ne Visit [place] Sarai Brice RENEP follow-up (Primary [address]) [place], [place] [address] [facility] [phone] [place] [address] Allergies No Known Allergiesdocumented as of this encounter (statuses as of 09/01/2019) Medications Medication Sig Dispensed Refills Start Date End Date Status Iron, Cbn & Take 1 tablet by 30 tablet 3 08/19/2017 Active Zvwh-RE-N65-C-DSS mouth daily. (FERRALET 90 DUAL-IRON DELIVERY) 90-1-12-50 uu-jw-kij-mg per tablet ferrous sulfate 325 mg Take [...] - For assistance, please contact the [facility]. Trichomoniasis 12/11/2018 09/01/2019 Previous delivery [...] Comments Blood Pressure 121/69 09/01/2019 9:29 AM WHEEL INSPECTOR Pulse 76 09/01/2019 9:29 AM WHEEL INSPECTOR Temperature 36.1 C (97 F) 09/01/2019 9:29 AM WHEEL INSPECTOR Respiratory Rate 16 09/01/2019 9:29 AM WHEEL INSPECTOR Oxygen Saturation - - Inhaled Oxygen Concentration - - Weight 106.8 kg (235 lb 6 oz) 09/01/2019 9:29 AM WHEEL INSPECTOR Height 167.6 cm (5' 6") 09/01/2019 9:29 AM WHEEL INSPECTOR Body Mass Index 37.99 09/01/2019 9:29 AM WHEEL INSPECTOR documented in this encounter Progress Notes JoseSarai [...] N/A 11/04/2017 Surgeon: Bonita Leiva MD; Location: [facility] Labor and Delivery OR Location SECTION N/A 08/11/2019 Surgeon: April Rayo MD; Location: Labor and Delivery - [place] ANESTH,KNEE AREA SURGERY Social History Socioeconomic [...] file Gets together: Not on file Attends worship service: Not on file Active member of [...] No domestic abuse or violence. No cats. Druze: Buddhism Social History Substance and Sexual Activity Sexual [...] c), ferrous sulfate, and iron, cbn & yjvo-pa-z36-c-dss. Review of Systems Constitutional: Negative. HENT: Negative. [...] method 2) Patient delivered on 08/11/19 at [facility] 3) Patient is currently bottlefeeding 4) Desired BCM: depo 5) Patient denies pp depression. RAZA WILEY RN 09/01/2019 9:36 AM L INSPECTOR documented in this encounter Plan of Treatment Date Type Specialty Care Team Description 09/22/2019 Office Visit [facility] George Grande, ESTIMATOR PAPERBOARD BOXES [address] [address] [phone] Health Maintenance Due Date Last Done Comments [...] / Subscriber ID Effective Phone Address T [facility] xxxxxxxxx 2019-Presadal [address] Medic aid HEALTH CHOICE - HEALTH CHOICE nt [id number] 1 MANAGED MEDICAID [place], [place]ID [phone] documented as of this encounter Advance Directives Name Relationship Healthcare Agent Communication Relationship BillieAmyaminahvito Pérez Mother Primary healthcare agent
--- OUTSIDE RECORDS SUMMARY | 2019-11-04 14:00 | XMS REPORT | Summary of Care ---
:1995 Author Organization [facility] Address [address] [place] [address] Care Team Providers Name Role Phone George Grande [facility] Primary Care Provider Reason for Visit Reason Comments DEPO PROVERA Encounter Details Date Type Department Care Team Description 09/29/2019 Nurse Visit [facility]- Jailene Grande, IRRIGATION EQUIPMENT INSTALLER [address] [place], [place] [address] Depo-Provera [place] Visit, [facility] Nurse contraceptive status [address] [facility] (Primary Dx) [place] [phone] Allergies No Known Allergiesdocumented as of this encounter (statuses as of 09/29/2019) Medications Medication Sig Dispensed Refills Start Date End Date Status Iron, Cbn & Take 1 tablet by 30 tablet 3 08/19/2017 Active Jjdw-KJ-C58-C-DSS mouth daily. (FERRALET 90 DUAL-IRON DELIVERY) 90-1-12-50 wo-kt-abl-mg per tablet ferrous sulfate 325 mg Take [...] as section needed for Pain (scale 4-6). Hospital, Clinic, or Other Ordered Dose Route Frequency Start Date End Date Status Facility Administered Medication medroxyPROGESTERone 150 mg IM [id number] 09/29/2019 0 Active (DEPO-PROVERA) injection 150 mg documented as of this encounter (statuses as of 09/29/2019) Active Problems Problem Noted Date Encounter for initial prescription of injectable contr aceptive 09/22/2019 Routine follow-up 09/01/2019 Sickle cell trait 12/09/2018 of child 12/09/2018 Obesity (BMI 30-39.9) 12/09/2018 documented as of this encounter (statuses as of 09/29/2019) Resolved Problems Problem Noted Date Resolved Date [...] please contact the [facility] Medicine service. Trichomoniasis 12/11/2018 09/01/2019 Previous delivery [...] as of this encounter (statuses as of 09/29/2019) Immunizations Name Administration Dates Next Due Tdap [...] Sign Reading Time Taken Comments Blood Pressure - - Pulse - - Temperature - - Respiratory Rate - - Oxygen Saturation - - Inhaled Oxygen Concentration - - Weight 106.8 kg (235 lb 6 oz) 09/29/2019 1:26 PM CDT Height - - Body Mass Index 37.99 09/01/2019 9:29 AM ORDER EDITOR documented in this encounter Patient Instructions Patient InstructionsJanet Shaw LVN - 09/29/2019 1:00 PM CDT Patient Education Medroxyprogesterone injection [Contraceptive] Brand Names: Depo-Provera, Depo-subQ Provera 104 What is this medicine? MEDROXYPROGESTERONE (me DROX ee proe NANCY te nahum) contraceptive injections prevent . They provide effective control for 3 months. Depo-subQ Provera 104 is also used for treating pain related to endometriosis. How should I use this medicine? Depo-Provera Contraceptive injection is given into a muscle. Depo-subQ Provera 104 injection is given under the skin. These injections are given by a health sub acute care nurse. You must not be before getting an injection. The injection is usually given during the first 5 days after the start of a menstrual period or 6 weeks after delivery of a baby. Talk to your supervisor blood donor recruiters regarding the use of this medicine in children. Special care may be needed. These injections have been used in female children who have started having menstrual periods. What side effects may I notice from receiving this medicine? Side effects that you should report to your doctor or health sub acute care nurse as soon as possible: allergic reactions like skin rash, itching or hives, swelling of the face, lips, or tongue breast tenderness or discharge breathing problems changes in vision depression feeling faint or lightheaded, falls fever pain in the abdomen, chest, groin, or leg problems with balance, talking, walking unusually weak or tired yellowing of the eyes or skin Side effects that usually do not require medical attention (report to your doctor or health sub acute care nurse if they continue or are bothersome): acne fluid retention and swelling headache irregular periods, spotting, or absent periods temporary pain, itching, or skin reaction at site where injected weight gain What may interact with this medicine? Do not take this medicine with any of the following medications: bosentan This medicine may also interact with the following medications: aminoglutethimide antibiotics or medicines for infections, especially rifampin, rifabutin, rifapentine, and griseofulvin aprepitant barbiturate medicines such as phenobarbital or primidone bexarotene carbamazepine medicines for seizures like ethotoin, felbamate, oxcarbazepine, phenytoin, topiramate modafinil Jacinto's wort What if I miss a dose? Try not to miss a dose. You must get an injection once every 3 months to maintain control. If you cannot keep an appointment, call and reschedule it. If you wait longer than 13 weeks between Depo-Provera contraceptive injections or longer than 14 weeks between Depo-subQ Provera 104 injections, you could get . Use another method for control if you miss your appointment. You may also need a test before receiving another injection. Where should I keep my medicine? This does not apply. The injection will be given to you by a health sub acute care nurse. What should I tell my health care provider before I take this medicine? They need to know if you have any of these conditions: frequently drink alcohol asthma blood vessel disease or a history of a blood clot in the lungs or legs bone disease such as osteoporosis breast cancer diabetes eating disorder (anorexia nervosa or bulimia) high blood pressure HIV infection or AIDS kidney disease liver disease mental depression migraine seizures (convulsions) stroke tobacco smoker vaginal bleeding an unusual or allergic reaction to medroxyprogesterone, other hormones, medicines, foods, dyes, or preservatives or trying to get breast-feeding What should I watch for while using this medicine? This drug does not protect you against HIV infection (AIDS) or other sexually transmitted diseases. Use of this product may cause you to lose calcium from your bones. Loss of calcium may cause weak bones (osteoporosis). Only use this product for more than 2 years if other forms of control are not right for you. The longer you use this product for control the more likely you will be at risk for weak bones. Ask your health sub acute care nurse how you can keep strong bones. You may have a change in bleeding pattern or irregular periods. Many females stop having periods while taking this drug. If you have received your injections on time, your chance of being is very low. If you think you may be , see your health sub acute care nurse as soon as possible. Tell your health sub acute care nurse if you want to get within the next year. The effect of this medicine may last a long time after you get your last injection. NOTE:This sheet is a summary. It may not cover all possible information. If you have questions aboutthis medicine, talk to your doctor, pharmacist, or health care provider. Copyright 2018 Elsevier documented in this encounter Progress Notes Janet Shaw LVN - 09/29/2019 1:00 PM CDTPatient desires to continue with depo for contraception. Depo was given by drive through method without obtaining vital signs per institutional guidelines for patients with no significant medical history or risk factors due to weather (COVID-19). Patient denies headaches, visual disturbances, or SOB. I have also reviewed use, side effects and effectiveness of this control method. Patient verbalized no side effects at this time and desires to continue with method. Constitutional: Alert and no distress Respiratory: Breathing comfortably Neurology: Answers questions appropriately Psychological: Affect Normal 24 year old female has been identified by and name. Verbal consent has been obtained by patientto have an injection of Depo Provera, as ordered by the provider. Date of last Depo Provera injection: initial dose today Tele health visit 09/22/2019 WWE scheduled 12 weeks out Encounter Diagnosis: v25.49 The site was cleaned with an alcohol swab and given intramuscularly (IM) in the left deltoid. A band aid dressing was then applied to the injection site. The patient tolerated the procedure well . Advised patient on Calcium intake 500-1200 mg daily. ED warnings given. Patient to return to clinic in 12 weeks for next Depo. Patient verbalized understanding. Janet Thornton LVN 09/29/2019 1:23 PM documented in this encounter Plan of Treatment Date Type Specialty Care Team Description 12/15/2019 Office Visit [facility] George Grande, IRRIGATION EQUIPMENT INSTALLER [address] [place], [place] [address] [phone] Health Maintenance Due Date Last Done Comments HPV VACCINES (1 - Female 06/12/2020 Postpon [...] filedocumented in this encounter Visit Diagnoses Diagnosis Depo-Provera contraceptive status - Prim michael Surveillance of other previously prescri bed contraceptive method documented in this encounter Administered Medications Medication Order MAR Action Action Date Dose Rate Site medroxyPROGESTERone Given 09/29/2019 1:50 150 mg Left Deltoid-IM (DEPO-PROVERA) injection 150 PM CDT mg 150 mg, Intramuscular, [id number], 2 doses, First dose on Sat09/29/19 at 1345, Last dose on Sat12/22/19 at 1345, Routine documented in this encounter Insurance Payer Benefit Plan / Subscriber ID Effective Phone Address [facility] xxxxxxxxx 2019-Prese [address] Medic aid HEALTH CHOICE - HEALTH CHOICE nt [id number] 1 MANAGED MEDICAID [place], [place]ID [phone] documented as of this encounter Advance Directives Name Relationship Healthcare Agent Communication Relationship Billiesosa Pérez Mother Primary healthcare agent
--- OUTSIDE RECORDS SUMMARY | 2019-11-04 14:00 | XMS REPORT | Summary of Care ---
:1995 Author Organization [facility] Address [address] [place] [address] Care Team Providers Name Role Phone George Grande [facility] Primary Care Provider Reason for Visit Reason Comments Contraception Tele Health Encounter Details Date Type Department Care Team Description 09/22/2019 Telemedicine Visit [facility]- George Grande Encounter for initial prescription of injectable contraceptive (Primary Dx); ÁNGEL Marina Depo-Provera contraceptive status [address] [facility] [address] [facility] [address] [place], [place] [phone] [address] [phone] Allergies No Known Allergiesdocumented as of this encounter (statuses as of 09/22/2019) Medications Medication Sig Dispensed Refills Start Date End Date Status Iron, Cbn & Take 1 tablet by 30 tablet 3 08/19/2017 Active Smyl-OS-P66-C-DSS mouth daily. (FERRALET 90 DUAL-IRON DELIVERY) 90-1-12-50 bc-ss-ajk-mg per tablet ferrous sulfate 325 mg Take [...] as of this encounter (statuses as of 09/22/2019) Active Problems Problem Noted Date Encounter for initial prescription of injectable contr aceptive 09/22/2019 Routine follow-up 09/01/2019 Sickle cell trait 12/09/2018 of child 12/09/2018 Obesity (BMI 30-39.9) 12/09/2018 documented as of this encounter (statuses as of 09/22/2019) Resolved Problems Problem Noted Date Resolved Date [...] as of this encounter (statuses as of 09/22/2019) Immunizations Name Administration Dates Next Due Tdap [...] Signs Not on filedocumented in this encounter Progress Notes George Grande FNP - 09/22/2019 1:00 PM CDT Chief complaint: Chief Complaint Patient presents with Contraception Tele Health TELEHEALTH NOTE Verbal consent obtained from Patient: Karen Pérez and Care Provider: ÁNGEL Gonzalez for telehealth services provided below. Communication with patient was conducted via Telephone. 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 ROS See Note TELEHEALTH EXAM Constitutional: Alert and no distress Respiratory: Breathing comfortably Neurology: Answers questions appropriately Psychological: Affect Normal After visit summary (AVS ) documentation will be available through [employer] for this encounter. A total of 15 minutes was spent on the Telephone with the patient. ÁNGEL Gonzalez HPI Patient is a present via tele health for a F/U 6wk PP and control. Patient delivery baby on 08/11/2019. Patient denies any complaints at this time. Patient denies any abdominal/pelvicpain. Patient desires to start Depo Provera for BCM. Patient denies any sexual activity since delivery and reports LMP was heavy. Patient denies current or past physical, sexual [...] N/A 11/04/2017 Surgeon: Bonita Leiva MD; Location: [facility] Labor and Delivery OR Location SECTION N/A 08/11/2019 Surgeon: April Rayo MD; Location: Labor and Delivery - [place] ANESTH,KNEE AREA SURGERY Social History Socioeconomic History [...] file Gets together: Not on file Attends denominational service: Not on file Active member of [...] No domestic abuse or violence. No cats. Yazidism: Scientology Social History Substance and Sexual Activity Sexual Activity Yes Partners: Male control/protection: None Comment: last sexual intercourse 11/30/2018 Labs No new labs Radiology No new radiology. Allergies Karen has No Known Allergies. Medications Karen has a current medication list which includes the following prescription(s): docusate calcium, ferrous sulfate, hydrocodone-acetaminophen, ibuprofen, vitamin w/fa, simethicone, ascorbic acid (vitamin c), ferrous sulfate, and iron, cbn & rofq-fl-n35-c-dss. Review of Systems Constitutional: Negative for activity change, appetite change, fatigue, unexpected weight change, weight gain and weight loss. HENT: Negative for sore throat. Eyes: Negative for visual disturbance. Respiratory: Negative for cough and shortness of breath. Breasts: Negative for discharge, mass, pain and unequal size. Cardiovascular: Negative for chest pain, palpitations and leg swelling. Gastrointestinal: Negative. Negative for abdominal pain, anal bleeding, blood in stool, constipation, diarrhea, nausea, rectal pain and vomiting. Genitourinary: Negative for bladder incontinence, dysuria, urgency, flank pain, vaginal bleeding, vaginal discharge, genital sores, vaginal pain and pelvic pain. Skin: Negative for color change and rash. Neurological: Negative. Negative for dizziness, syncope and headaches. Psychiatric/Behavioral: Negative for confusion, self-injury and sleep disturbance. The patient is not nervous/anxious. Hematological: Negative for cold intolerance and heat intolerance. Endocrine: Negative for hair loss, cold intolerance, heat intolerance, weight gain and weight loss. There were no vitals taken for this visit. Pregravid BMI: Could not be calculated Physical Exam See Tele Health note Assessment/Plan Encounter for initial prescription of injectable contraceptive (primary encounter diagnosis) Depo-Provera contraceptive status Comment: patient desires Depo Provera injection for BCM Plan: Patient desires to start Depo Provera for contraception. Provider has reviewed risks, benefitsand alternatives contraception methods. Provider has also reviewed use, side effects and effectiveness of desires BCM vs other BCM. Encouraged abstinence until menses. Encouraged use of condoms as back up x 1 month and for safer sex. Return to clinic for Depo Provera weeks. Discussed treatment options. Medications as ordered. Reviewed patient instructions and provided printed copy. This visit did not involve counseling and coordination that comprised more than 50% of the visit time. ÁNGEL Gonzalez 09/22/2019 2:28 PM documented in this encounter Plan of Treatment Date Type Specialty Care Team Description 09/29/2019 Nurse Visit [facility] Visit, [facility] Nurse 12/15/2019 Office Visit [facility] George Grande FNP [address] [place], [place] [address] [phone] Health Maintenance Due Date Last Done Comments [...] this encounter Visit Diagnoses Diagnosis Encounter for initial prescription of in jectable contraceptive - Primary General counseling for initiation of oth er contraceptive measures Depo-Provera contraceptive status Surveillance of other previously prescri bed contraceptive method documented in this encounter Insurance Payer Benefit Plan / Subscriber ID Effective Phone Address T ype Group Dates [facility] xxxxxxxxx 2019-Mary [address] Medic aid HEALTH CHOICE - HEALTH CHOICE nt [id number] 1 MANAGED MEDICAID [place], [place] MEDICAID [phone] documented as of this encounter Advance Directives Name Relationship Healthcare Agent Communication Relationship Mjvito Pérez Mother Primary healthcare agent
--- NOTE | 2019-11-04 15:39 | RAD REPORT ---
EXAM DESCRIPTION: RAD - Knee Left 3 View - 11/04/2019 3:34 pm CLINICAL HISTORY: knee pain Pain and swelling COMPARISON: Knee Left 3 view dated 06/07/2014; Knee Left 3 view dated 02/20/2014 FINDINGS: No fracture or dislocation seen. Small suprapatellar joint effusion.
--- NOTE | 2019-11-04 16:25 | ER ---
Nurse's Notes [facility] Name: Karen Pérez Age: 24 yrs Sex: Female : 1995 Arrival Date: 11/04/2019 Time: 13:45 Bed 20 Private MD: Diagnosis: Sprain of other specified parts of left knee;Sprain of unspecified site of left knee Presentation: 11/03 14:04 Chief complaint: Patient states: Jumped down off bed yesterday and landed wrong, jl7 reports increased left knee pain with swelling. Coronavirus screen: Proceed with normal triage. Patient denies a cough. Patient denies shortness of breath or difficulty breathing. Patient denies measured and/or subjective temperature greater than 100.4F prior to today's visit. Patient denies travel on a cruise ship or to a country the [facility] currently lists as an affected area. Patient denies contact with known and/or suspected case of COVID-19. Ebola Screen: No symptoms or risks identified at this time. Initial Sepsis Screen: Does the patient meet any 2 criteria? No. Patient's initial sepsis screen is negative. Does the patient have a suspected source of infection? No. Patient's initial sepsis screen is negative. Risk Assessment: Do you want to hurt yourself or someone else? Patient reports no desire to harm self or others. Onset of symptoms was November 03, 2019. Care prior to arrival: Medication(s) given: Motrin, 200 mg. 14:04 Method Of Arrival: Ambulatory [facility] 14:04 Acuity: ANNA 4 jl7 Triage Assessment: 14:07 General: Appears in no apparent distress. uncomfortable, Behavior is calm, cooperative, jl7 appropriate for age. Pain: Complains of pain in left knee Pain currently is 3 out of 10 on a pain scale. Neuro: Level of Consciousness is awake, alert, obeys commands, Oriented to person, place, time, situation. Cardiovascular: Patient's skin is warm and dry. Respiratory: Airway is patent Respiratory effort is even, unlabored. GI: Derm: Skin is pink, warm \T\ dry. Musculoskeletal: Reports pain in left knee. RN SURGERY ICU: 14:07 LMP 10/24/2019 jl7 Historical: - Allergies: 14:07 NKDA; jl7 - Home Meds: 14:07 None [Active]; jl7 - PMHx: 14:07 Asthma; jl7 - PSHx: 14:07 Knee surgery; jl7 - Immunization history:: Adult Immunizations not up to date. - Social history:: Smoking status: Patient denies any tobacco usage or history of. Screenin:25 Abuse screen: Denies threats or abuse. Denies injuries from another. Nutritional ca1 screening: No deficits noted. Tuberculosis screening: No symptoms or risk factors identified. Fall Risk Fall in past 12 months (25 points). Assessment: 15:25 General: Appears in no apparent distress. comfortable, Behavior is calm, cooperative, ca1 appropriate for age. Pain: Complains of pain in left knee Pain currently is 2 out of 10 on a pain scale. Pain began 1 day ago. Neuro: Level of Consciousness is awake, alert, obeys commands, Oriented to person, place, time, situation, Appropriate for age. Derm: Skin is intact, is healthy with good turgor, Skin is pink, warm \T\ dry. Musculoskeletal: Circulation, motion, and sensation intact. Capillary refill < 3 seconds, Range of motion: limited in left knee. 16:41 Reassessment: Patient appears in no apparent distress at this time. Patient is alert, ca1 oriented x 3, equal unlabored respirations, skin warm/dry/pink. Reports pt's mom is driving her home. Vital Signs: 14:04 BP 128 / 71; Pulse 104; Resp 17; Temp 98.1; Pulse Ox 100% ; Weight 104.33 kg; Pain 3/10;jl7 15:28 BP 128 / 77; Pulse 93; Resp 17 S; Pulse Ox 100% on R/A; ca1 16:41 BP 118 / 64; Pulse 92; Resp 17 S; Pulse Ox 100% on NC; ca1 ED Course: 13:45 Patient arrived in ED. ag5 14:06 Triage completed. jl7 14:07 Arm band placed on right wrist. jl7 15:16 Stu De Jesus MD is Attending Physician. kdr 15:17 Suha Mckeon, KEVIN is Primary Nurse. ca1 15:24 Ramirez wrap to left knee. mh5 15:25 Patient has correct armband on for positive identification. Bed in low position. Call mh5 light in reach. Warm blanket given. Pulse ox on. NIBP on. 15:25 No provider procedures requiring assistance completed. Patient did not have IV access ca1 during this emergency room visit. 15:35 Knee Left 3 View In Process Unspecified. EDMS Administered Medications: 16:35 Drug: traMADol 50 mg {Note: rass - 0.} Route: PO; ca1 16:41 Follow up: Response: Medication administered at discharge. ca1 Outcome: 16:24 Discharge ordered by . kdr 16:42 Discharged to home ambulatory. ca1 16:42 Condition: stable 16:42 Discharge instructions given to patient, Instructed on discharge instructions, follow up and referral plans. medication usage, Demonstrated understanding of instructions, follow-up care, medications, Prescriptions given X 1. 16:43 Patient left the ED. ca1 Signatures: Dispatcher [employer] EDMS Stu De Jesus MD MD kdr Martinez, [facility] [place] Divya Anaya RN RN jl7 Suha Mckeon RN RN ca1 Tonya Parsons 5
--- NOTE | 2019-11-04 16:25 | EDPHYS ---
Physician Documentation [facility] Name: Karen Pérez Age: 24 yrs Sex: Female : 1995 Arrival Date: 11/04/2019 Time: 13:45 Bed 20 Private MD: ED Physician Stu De Jesus HPI: 11/03 17:00 This 24 yrs old Black Female presents to ER via Ambulatory with complaints of Knee Pain.kdr 17:00 The patient presents with decreased range of motion, an injury, pain, that is acute. kdr The complaints affect the left knee. Context: The problem was sustained at home, resulted from a mis-step, on a curb, twisting of the extremity, the patient can partially bear weight, the patient is able to ambulate, Problem is a result from a previous injury: No. Onset: The symptoms/episode began/occurred suddenly, yesterday. Modifying factors: The symptoms are alleviated by remaining still. Associated signs and symptoms: Pertinent positives: Pertinent negatives calf tenderness, fever, nausea, numbness, rash, swelling, tingling, vomiting, warmth, weakness. Treatment prior to arrival includes: no previous treatment. Severity of symptoms: At their worst the symptoms were mild, in the emergency department the symptoms are unchanged. The patient has not experienced similar symptoms in the past. The patient has not recently seen a physician. [employer]: 14:07 LMP 10/24/2019 jl7 Historical: - Allergies: 14:07 NKDA; jl7 - Home Meds: 14:07 None [Active]; jl7 - PMHx: 14:07 Asthma; jl7 - PSHx: 14:07 Knee surgery; jl7 - Immunization history:: Adult Immunizations not up to date. - Social history:: Smoking status: Patient denies any tobacco usage or history of. ROS: 17:00 Constitutional: Negative for fever, chills, and weight loss, Eyes: Negative for injury, kdr pain, redness, and discharge, Neck: Negative for injury, pain, and swelling, Cardiovascular: Negative for chest pain, palpitations, and edema, Respiratory: Negative for shortness of breath, cough, wheezing, and pleuritic chest pain, Abdomen/GI: Negative for abdominal pain, nausea, vomiting, diarrhea, and constipation, Back: Negative for injury and pain, : Negative for injury, bleeding, discharge, and swelling, Skin: Negative for injury, rash, and discoloration, Neuro: Negative for headache, weakness, numbness, tingling, and seizure activity. Psych: Negative for depression, anxiety, suicide ideation, homicidal ideation, and hallucinations, Allergy/Immunology: Negative for hives, rash, and allergies, Endocrine: Negative for neck swelling, polydipsia, polyuria, polyphagia, and marked weight changes. 17:00 MS/extremity: Positive for injury or acute deformity, decreased range of motion, pain, swelling, tenderness, warmth, of the left knee. Exam: 17:00 Constitutional: This is a well developed, well nourished patient who is awake, alert, kdr and in no acute distress. 17:00 Musculoskeletal/extremity: Extremities: all appear grossly normal, with no appreciated pain with palpation, grossly normal except: ROM: limited active range of motion, limited passive range of motion, in all extremities, Circulation is intact in all extremities. the left knee Vital Signs: 14:04 BP 128 / 71; Pulse 104; Resp 17; Temp 98.1; Pulse Ox 100% ; Weight 104.33 kg; Pain 3/10;jl7 15:28 BP 128 / 77; Pulse 93; Resp 17 S; Pulse Ox 100% on R/A; ca1 16:41 BP 118 / 64; Pulse 92; Resp 17 S; Pulse Ox 100% on NC; ca1 MDM: 16:24 Patient medically screened. kdr 17:00 Data reviewed: vital signs, nurses notes, lab test result(s), radiologic studies. kdr Counseling: I had a detailed discussion with the patient and/or guardian regarding: the historical points, exam findings, and any diagnostic results supporting the discharge/admit diagnosis, radiology results, the need for outpatient follow up. 11/03 15:01 Order name: Knee Left 3 View EDMS 11/03 15:22 Order name: Ramirez wrap-joint: left knee; Complete Time: 15:24 kdr Administered Medications: 16:35 Drug: traMADol 50 mg {Note: rass - 0.} Route: PO; ca1 16:41 Follow up: Response: Medication administered at discharge. ca1 Disposition: 11/04/19 16:24 Discharged to Home. Impression: Sprain of other specified parts of left knee, Sprain of unspecified site of left knee. - Condition is Stable. - Discharge Instructions: Knee Pain, [id number]. - Prescriptions for Ibuprofen 800 mg Oral Tablet - take 1 tablet by ORAL route every 8 hours As needed take with food; 12 tablet. - Medication Reconciliation Form, Thank You Letter form. - Follow up: Private Physician; When: 2 - 3 days; Reason: If symptoms return, Further diagnostic work-up, Recheck today's complaints, Continuance of care, Re-evaluation by your physician. - Problem is new. - Symptoms are unchanged. Signatures: Dispatcher [employer] EDAR Stu De Jesus MD MD kdr Divya Anaya RN RN jl7 Suha Mckeon RN RN ca1 Corrections: (The following items were deleted from the chart) 16:43 16:24 11/04/2019 16:24 Discharged to Home. Impression: Sprain of other specified parts ca1 of left knee; Sprain of unspecified site of left knee. Condition is Stable. Forms are Medication Reconciliation Form, Thank You Letter, Antibiotic Education, Prescription Opioid Use. Follow up: Private Physician; When: 2 - 3 days; Reason: If symptoms return, Further diagnostic work-up, Recheck today's complaints, Continuance of care, Re-evaluation by your physician. Problem is new. Symptoms are unchanged. kdr
[2019-11-04] MEDS ORDERED: TRAMADOL HCL 50 MG TAB ONE (16:42)
[2019-11-05 15:41] VITALS: TEMP 98.1; O2SAT 100
[2019-11-05 15:44] VITALS: BP 118/64
== END 2019-11-04 16:43 | disposition home or self-care (01) ==
LOC: ER 13:43
DX: S83.8X2A Sprain of other specified parts of left knee, initial encounter (principal); X50.1XXA Overexertion from prolonged static or awkward postures, initial encounter; Y93.89 Activity, other specified; Y92.009 Unspecified place in unspecified non-institutional (private) residence as the place of occurrence of the external cause
CPT/HCPCS: 99284

== ENCOUNTER 2021-06-23 09:40 | Emergency (ER) | payer OTHER ==
--- OUTSIDE RECORDS SUMMARY | 2021-06-23 09:45 | XMS REPORT | Continuity of Care Document ---
:1995 Author Organization [facility] t Address [address] [place] [address] Care Team Providers Name Role Phone Tao Graham Primary Care Physician Visit, Nurse Attending Clinician Unavailable Kylah NEAL R Attending Clinician Tao MONTERO Attending Clinician Unavailable Doctor Unassigned, Name Attending Clinician Unavailable Pamela WARD C Attending Clinician PAMELA C Attending Clinician Unavailable keyon Attending Clinician Unavailable Marta Rowley MD Attending Clinician Lab Attending Clinician Unavailable Danica Orellana MD Attending Clinician Tao Palaicos Attending Clinician 5, [facility] Room Attending Clinician Unavailable Cooper NEAL Attending Clinician keyon Admitting Clinician Unavailable Marta Rowley MD Admitting Clinician Payers Payer Name Policy Type Policy Number Effective Date Expiration Date [facility] [id number] 2019 [facility] MEDICAID 00:00:00 Advance Directives Directive Decision Effective Termination Comments Source Date Date Healthcare Agents on N/A [facility] Agent Medical RelationshipCommunicationMetroHealth [facility] [phone] (Mobile) Problems Condition Condition Condition Status Onset Resolution Last Treating Co mments Source Name Details Category Date Date Treatment Clinician Date Class 2 Class 2 Disease Active Univers obesity obesity 6-16 [place] mass index mass index 00 Me dical (BMI) of (BMI) of Branch 39.0 to 39.0 to 39.9 in 39.9 in adult, adult, unspecifie unspecifie d obesity d obesity type, type, unspecifie unspecifie d whether d whether serious serious comorbidit comorbidit y present y present Encounter Encounter Disease Active Uni vers for for 3-24 ity of initial initial 00:00: [place] prescripti prescripti 00 Me dical on of on of Branch injectable injectable contracept contracept kay kay Other Other Disease Active Univers general general 3-24 [place] of counseling [place] and advice and advice 00 Me dical for for Branch contracept contracept kay kay management management Well woman Well woman Disease Active U nivers exam exam 3-03 ity of 00:00: [place] 00 Medical Branch 39 weeks 39 weeks Disease Active Unive rs gestation gestation 2-10 ity of of of 00:00: [place] 00 [facility] GBS (group GBS (group Disease Active Overview : Univers B B 1-24 Address ity of Streptococ Streptococ 00:00: in labor [place] cus cus 00 and Medical carrier), carrier), delivery. B ranch +RV +RV culture, culture, currently currently Desires Desires Disease Active 2018-07 Univers 2-10 ity of (vaginal (vaginal 00:00: [place] 00 Medical after after Branch ) ) trial trial Type A Type A Disease Active 2018-07 Univers blood, Rh blood, Rh 1-11 ity of positive positive 00:00: [place] 00 Medical Branch Trichomoni Trichomoni Disease Active U nivers asis asis 6-13 ity of 00:00: [place] 00 Medical Branch BMI BMI Disease Active Univers 39.0-39.9, 39.0-39.9, 6-11 it y of adult adult 00:00: [place] 00 Medical Branch Previous Previous Disease Active Unive rs 6-11 ity of delivery delivery 00:00: [place] affecting affecting 00 Medi talha , , Br anch antepartum antepartum Sickle Sickle Disease Active Univers cell trait cell trait 6-11 it y of 00:00: [place] 00 Medical Branch of of Disease Active Unive rs child child 6-11 ity of 00:00: [place] 00 Medical Branch Obesity in Obesity in Disease Active 2018- U nivers 6-11 ity of 00:00: [place] 00 Medical Branch Multiparit Multiparit Disease Active U nivers y y 6-11 ity of 00:00: [place] 00 Medical Branch Supervisio Supervisio Disease Active U nivers n of high n of high 5-02 ity of risk risk 00:00: [place] 00 Medi talha in third in third Branch trimester trimester Allergies, Adverse Reactions, Alerts Allergy Allergy Status Severity Reaction(s) Onset Inactive Treating Comm ents Source Name Type Date Date Clinician NO KNOWN Drug Active Univers ALLERGIE Class ity of [facility] Social History Social Habit Start Date Stop Date Quantity Comments Source ASSERTION 2018-11-24 [facility] 00:00:00 [facility] Exposure to Not sure [facility] SARS-CoV-2 (event) Medica l Branch Alcohol intake 2021-05-08 2021-05-08 0 /d [facility] 00:00:00 00:00:00 [facility] Tobacco use and 2016-06-18 2016-06-18 Never used [facility] exposure 00:00:00 00:00:00 [facility] Sex Assigned At [birth year] [facility] 00:00:00 00:00:00 [facility] Smoking Status Start Date Stop Date Source Never smoker [facility] Medications Ordered Filled Start Stop Current Ordering Indication Dosage Frequency Signature Comments Components Source Medication Medication Date Date Medication? Clinician (SIG) Name Name medroxyPROG 2021- No [id number] 150mg Univers ESTERone 02-1318 ity of (DEPO-PROVE 15:15: 15:14 [place] RA) 00 :00 Medical injection Branch 150 mg medroxyPROG 2021- No [id number] 150mg 150 mg, Univers ESTERone 02-1318 Intramuscu ity of (DEPO-PROVE 15:15: 15:14 lar, [place] RA) 00 :00 [id number], Medical injection 4 doses, Branch 150 mg First dose on Sat02/13/21 at 1015, Last dose on Sat10/23/21 at 1015, Routine medroxyPROG 2020-0 2021- No [id number] 150mg Univers ESTERone 816 -18 ity of (DEPO-PROVE 15:15: 15:14 [place] RA) 00 :00 Medical injection Branch 150 mg medroxyPROG 2020-2021- No [id number] 150mg 150 mg, Univers ESTERone 02-1318 Intramuscu ity of (DEPO-PROVE 15:15: 15:14 lar, [place] RA) 00 :00 [id number], Medical injection 4 doses, Branch 150 mg First dose on Sat02/13/21 at 1015, Last dose on Sat10/23/21 at 1015, Routine medroxyPROG 2020-2021- No [id number] 150mg Univers ESTERone 02-1318 ity of (DEPO-PROVE 15:15: 15:14 [place] RA) 00 :00 Medical injection Branch 150 mg medroxyPROG 2020-0 2021- No [id number] 150mg Univers ESTERone 16 -18 ity of (DEPO-PROVE 15:15: 15:14 [place] RA) 00 :00 Medical injection Branch 150 mg medroxyPROG 2021- No [id number] 150mg 150 mg, Univers ESTERone 02-13-18 Intramuscu ity of (DEPO-PROVE 15:15: 15:14 lar, [place] RA) 00 :00 [id number], Medical injection 4 doses, Branch 150 mg First dose on Sat02/13/21 at 1015, Last dose on Sat10/23/21 at 1015, Routine medroxyPROG 2019-2020- No [id number] 150mg 150 mg, Univers ESTERone 12-14 Intramuscu ity of (DEPO-PROVE 20:45: 13:56 lar, [place] RA) 00 :00 [id number], Medical injection 4 doses, Branch 150 mg First dose on Sat12/15/19 at 1545, Last dose on Sat08/23/20 at 1545, Routine medroxyPROG 2020-0 2020- No [id number] 150mg Univers ESTERone 6-16 05-18 ity of (DEPO-PROVE 20:45: 20:44 [place] RA) 00 :00 Medical injection Branch 150 mg medroxyPROG 2019-2020- No [id number] 150mg 150 mg, Univers ESTERone 6-16 05-18 Intramuscu ity of (DEPO-PROVE 20:45: 20:44 lar, [place] RA) 00 :00 [id number], Medical injection 4 doses, Branch 150 mg First dose on 12/15/19 at 1545, Last dose on 08/23/20 at 1545, Routine medroxyPROG 2019-2020- No [id number] 150mg Univers ESTERone 6-16 05-18 ity of (DEPO-PROVE 20:45: 20:44 [place] RA) 00 :00 Medical injection Branch 150 mg medroxyPROG 2019-2020- No [id number] 150mg 150 mg, Univers ESTERone 6-16 05-18 Intramuscu ity of (DEPO-PROVE 20:45: 20:44 lar, [place] RA) 00 :00 [id number], Medical injection 4 doses, Branch 150 mg First dose on 12/15/19 at 1545, Last dose on Sat08/23/20 at 1545, Routine medroxyPROG 2019-2020- No [id number] 150mg Univers ESTERone 6-16 05-18 ity of (DEPO-PROVE 20:45: 20:44 [place] RA) 00 :00 Medical injection Branch 150 mg medroxyPROG 2019-2020- No [id number] 150mg Univers ESTERone 6-16 05-18 ity of (DEPO-PROVE 20:45: 20:44 [place] RA) 00 :00 Medical injection Branch 150 mg medroxyPROG 2019-2020- No [id number] 150mg Univers ESTERone 6-16 05-18 ity of (DEPO-PROVE 20:45: 20:44 [place] RA) 00 :00 Medical injection Branch 150 mg medroxyPROG 2019-2020- No [id number] 150mg Univers ESTERone 6-16 05-18 ity of (DEPO-PROVE 20:45: 20:44 [place] RA) 00 :00 Medical injection Branch 150 mg medroxyPROG 2019-2020- No [id number] 150mg 150 mg, Univers ESTERone 12-14 Intramuscu ity of (DEPO-PROVE 20:45: 20:44 lar, [place] RA) 00 :00 [id number], Medical injection 4 doses, Branch 150 mg First dose on 12/15/19 at 1545, Last dose on Sat08/23/20 at 1545, Routine medroxyPROG 2020-0 2020- No [id number] 150mg Univers ESTERone 12-14 ity of (DEPO-PROVE 20:45: 20:44 [place] RA) 00 :00 Medical injection Branch 150 mg medroxyPROG 2020-0 2020- No [id number] 150mg Univers ESTERone 12-14 ity of (DEPO-PROVE 20:45: 20:44 [place] RA) 00 :00 Medical injection Branch 150 mg medroxyPROG 2020-2020- No [id number] 150mg 150 mg, Univers ESTERone 12-14 Intramuscu ity of (DEPO-PROVE 20:45: 20:44 lar, [place] RA) 00 :00 [id number], Medical injection 4 doses, Branch 150 mg First dose on e 12/15/19 at 1545, Last dose on Sat08/23/20 at 1545, Routine medroxyPROG 2019-2019- No 150mg Univ ers ESTERone 09-28 ity of (DEPO-PROVE 18:45: 18:44 [place] RA) 00 :00 Medical injection Branch 150 mg medroxyPROG 2020-0 2019- No 150mg 150 mg, U nivers ESTERone 09-28 Intramuscu ity of (DEPO-PROVE 18:45: 18:44 lar, [place] RA) 00 :00 [id number], Medical injection 2 doses, Branch 150 mg First dose on Sat09/29/19 at 1345, Last dose on Sat12/22/19 at 1345, Routine medroxyPROG 2020-0 2019- No 150mg Univ ers ESTERone 09-28 ity of (DEPO-PROVE 18:45: 18:44 [place] RA) 00 :00 Medical injection Branch 150 mg medroxyPROG 2020-0 2020- No 150mg Univ ers ESTERone 09-28 ity of (DEPO-PROVE 18:45: 18:44 [place] RA) 00 :00 Medical injection Branch 150 mg medroxyPROG 2020-0 2020- No 150mg Univ ers ESTERone 09-28 ity of (DEPO-PROVE 18:45: 18:44 [place] RA) 00 :00 Medical injection Branch 150 mg ferrous 2020-0 Yes 325mg 325 mg, Univer s sulfate - Oral, TID ity of tablet 325 23:00: MEALS, [place] mg 00 First dose Medical on [facility] 08/11/19 at 1700, Until Discontinu ed, Routine foLIC acid 2020-0 Yes 1mg 1 mg, Univer s (FOLATE) - Oral, ity of tablet 1 mg 22:45: DAILY, [place] 00 First dose Medical on [facility] 08/11/19 at 1645, Until Discontinu ed, Routine ascorbic 2020-0 Yes 500mg 500 [facility] - [facility], ity of (vitamin C) 22:45: DAILY, [place] (VITAMIN C) 00 First dose Me dical tablet 500 on [facility] mg 08/11/19 at 1645, Until Discontinu ed, Routine lactated 2020-0 2020- No 500mL at 999 [facility] rs ringers IV 08-11 02-11 mL/hr, 500 it y of infusion 22:00: 21:34 mL, [place] 500 mL 00 :00 Intravenou Medical s, ONCE, 1 Branch dose, [facility] 08/11/19 at 1600, Routine lactated 2020-0 2020- No 1000mL at 125 [facility] ers ringers IV 08-11 02-11 mL/hr, ity of infusion 12:45: 21:34 1,000 mL, [place] as 1,000 mL 00 :00 IV Medical Infusion, Branch ONCE, 1 dose, [facility] 08/11/19 at 0645, Routine rho(D) 2020-0 Yes 300ug 300 mcg, Univer s immune 2-11 Intramuscu ity of globulin 12:39: lar, ONCE, [place] as (RHOGAM) 52 For 1 Medical syringe 300 dose, Branch mcg Conditiona l, Routine HYDROcodone 2020-0 Yes 2{tbl} 2 tablet, Univers -acetaminop 2-11 Oral, ity of hen (NORCO 12:39: Q6HPRN, [place] 5) 5-325 mg 47 Starting Medi talha tablet 2 Tue Branch tablet 08/11/19 at 0639, Until Discontinu ed, Routine, Pain (scale 7-10), If uncontroll ed by Ibuprofen HYDROcodone 2020-0 Yes 1{tbl} 1 tablet, Univers -acetaminop 2-11 Oral, ity of hen (NORCO 12:39: Q6HPRN, [place] 5) 5-325 mg 47 Starting Medi talha tablet 1 Tue Branch tablet 08/11/19 at 0639, Until Discontinu ed, Routine, Pain (scale 4-6), If uncontroll ed by Ibuprofen ibuprofen 2020-0 Yes 600mg 600 mg, Univ ers (IBU) 2-11 Oral, ity of tablet 600 12:39: Q6HPRN, [place] mg 47 Starting Medical Tue Branch 08/11/19 at 0639, Until Discontinu ed, Routine, Pain (scale 1-3) diphenhydrA 2020-0 Yes 25mg 25 mg, Univ ers MINE 2-11 Oral, ity of (BENADRYL) 12:39: Q6HPRN, [place] tablet 25 47 Starting Medica l mg Tue Branch 08/11/19 at 0639, Until Discontinu ed, Routine, Sleep, Itching ondansetron 2020-0 Yes 4mg 4 mg, Slow Univers (ZOFRAN 2-11 IV Push, ity of (PF)) 12:39: Q8HPRN, [place] injection 4 47 Starting Medi talha mg Tue Branch 08/11/19 at 0639, Until Discontinu ed, Routine, Nausea and Vomiting (N/V) simethicone 2020-0 Yes 160mg 160 mg, Un yonny (GAS RELIEF 2-11 Oral, ity of (SIMETHICON 12:39: PC+HSPRN, [place] E)) 47 Starting Medical chewable Tue Branch tablet 160 08/11/19 at mg 0639, Until Discontinu ed, Routine, Gas docusate 2020-0 Yes 240mg 240 mg, Unive rs calcium 2-11 Oral, ity of (SURFAK) 12:39: QDAILYPRN, [place] capsule 240 47 Starting Medi talha mg Tue Branch 08/11/19 at 0639, Until Discontinu ed, Routine, Constipati on magnesium 2020-0 Yes 30mL 30 mL, Univer s hydroxide 08-11 Oral, ity of (MILK OF 12:39: QDAILYPRN, [place] MAGNESIA) 47 Starting Medica l 400 mg/5 mL [facility] suspension 08/11/19 at 30 mL 0639, Until Discontinu ed, Routine, Constipati on bisacodyL 2019-0 Yes 10mg 10 mg, Univer s (DULCOLAX) 08-11 Rectal, ity of suppository 12:39: QDAILYPRN, [place] 10 mg 46 Starting Medical [facility] Branch 08/11/19 at 0639, Until Discontinu ed, Routine, Constipati on ondansetron 2020- No 4mg 4 mg, Slow Univers (ZOFRAN 08-11 IV Push, ity of (PF)) 09:45: 09:41 ONCE, 1 [place] injection 4 00 :00 dose, [facility] ical mg 08/11/19 at Branch 0345, Routine, PACU nalbuphine 2019-0 Yes 5mg 5 mg, Univer s (NUBAIN) 08-11 Intravenou ity o f injection 5 09:41: s, PRN, 1 [place] mg 18 dose, Medical Starting Branch [facility] 08/11/19 at 0341, Until Discontinu ed, Routine, Itching, PACU ketorolac 2019- No 30mg 30 mg, [facility] (TORAD[facility]) 08-11 Slow IV ity of injection 09:41: 10:01 Push, PRN, [place] 30 mg 18 :00 1 dose, Medical Starting Branch [facility] 08/11/19 at 0341, Until [facility] 08/11/19 at 0401, Routine, Pain (scale 7-10), PACU
Fa culty member approving Restricted medication : PETROS MELISSA acetaminoph 2019-0 2020- No 650mg 650 mg, U nivers en 08-11 Oral, ity of (TYLENOL) 04:00: 05:10 ONCE, 1 [place] tablet 650 00 :00 dose, Mon Medi talha mg 08/10/19 at Branch 2200, Routine lactated 2019-0 2020- No 1000mL at 125 Univ ers ringers IV 08-11-11 mL/hr, ity of infusion 04:00: 12:39 1,000 mL, [place] 1,000 mL 00 :52 IV Medical Infusion, Branch CONTINUOUS , Starting 08/10/19 at 2200, Until 08/11/19 at 0639, Routine ceFAZolin 2019-0 2020- No 2000mg 2 g (2,000 Univers in dextrose 08-11 02-11 mg), IV ity of (iso-os) 03:44: 05:10 [place] (ANCEF) 2 33 :00 O.R. Medical gram/100 mL HOLDING Branc h Piggyback 2 ONCE, 1 g dose, Starting 08/10/19 at 2144, Until Discontinu ed, 100 mL
Reas on for Anti-Infec tive: Surgical Prophylaxi s
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
Duration of therapy: within 24 hours of surgery sodium 2019-0 2020- No 30mL 30 mL, Univers citrate-cit 08-1111 Oral, ity of halina acid 03:44: 05:10 PRE-PROCED [place] (BICITRA) 33 :00 URE ONCE, Medic al 500-334 1 dose, Branch mg/5 mL Starting solution 30 Mon mL 08/10/19 at 2144, Until 08/12/19 at 2359, Routine, Surgery/Pr ocedure simethicone 2019-0 Yes [id number] 160mg Take 2 Univers 80 mg 2-11 tablets by ity of chewable 00:00: mouth [place] tablet 00 after Medical meals and Branch at bedtime as needed for Gas. 2020-0 Yes [id number] 1{tbl} Take 1 Univers vitamin 2-11 tablet by ity of w/FA tablet 00:00: mouth [place] 00 daily. Medical Branch docusate 2020-0 Yes [id number] 240mg Take 1 U nivers calcium 240 2-11 capsule by it y of mg capsule 00:00: mouth once [place] 00 daily as Medical needed for Branch Constipati on. ferrous 2020-0 Yes [id number] 325mg Take 1 Un yonny sulfate 325 2-11 tablet by ity of mg (65 mg 00:00: mouth 2 [place] iron) 00 (two) Medical tablet times Branch daily. ibuprofen 2020-0 Yes [id number] 600mg Take 1 Univers 600 mg 2-11 tablet by ity of tablet 00:00: mouth [place] 00 every 6 Medical (six) Branch hours as needed (Pain). Take with food or milk. HYDROcodone 2020-0 Yes [id number] 1{tbl} Take 1 Univers -acetaminop 2-11 tablet by ity of hen 5-325 00:00: mouth [place] mg tablet 00 every 6 Medical (six) Branch hours as needed for Pain (scale 4-6). simethicone 2020-0 Yes [id number] 160mg Take 2 Univers 80 mg 2-11 tablets by ity of chewable 00:00: mouth [place] tablet 00 after Medical meals and Branch at bedtime as needed for Gas. 2020-0 Yes [id number] 1{tbl} Take 1 Univers vitamin 2-11 tablet by ity of w/FA tablet 00:00: mouth [place] 00 daily. Medical Branch docusate 2020-0 Yes [id number] 240mg Take 1 U nivers calcium 240 2-11 capsule by it y of mg capsule 00:00: mouth once [place] 00 daily as Medical needed for Branch Constipati on. ferrous 2020-0 Yes [id number] 325mg Take 1 Un yonny sulfate 325 2-11 tablet by ity of mg (65 mg 00:00: mouth 2 [place] iron) 00 (two) Medical tablet times Branch daily. ibuprofen 2020-0 Yes [id number] 600mg Take 1 Univers 600 mg 2-11 tablet by ity of tablet 00:00: mouth [place] 00 every 6 Medical (six) Branch hours as needed (Pain). Take with food or milk. HYDROcodone 2020-0 Yes [id number] 1{tbl} Take 1 Univers -acetaminop 2-11 tablet by ity of hen 5-325 00:00: mouth [place] mg tablet 00 every 6 Medical (six) Branch hours as needed for Pain (scale 4-6). simethicone 2020-0 Yes [id number] 160mg Take 2 Univers 80 mg 2-11 tablets by ity of chewable 00:00: mouth [place] tablet 00 after Medical meals and Branch at bedtime as needed for Gas. 2020-0 Yes [id number] 1{tbl} Take 1 Univers vitamin 2-11 tablet by ity of w/FA tablet 00:00: mouth [place] 00 daily. Medical Branch docusate 2020-0 Yes [id number] 240mg Take 1 U nivers calcium 240 2-11 capsule by it y of mg capsule 00:00: mouth once [place] 00 daily as Medical needed for Branch Constipati on. ferrous 2020-0 Yes [id number] 325mg Take 1 Un yonny sulfate 325 2-11 tablet by ity of mg (65 mg 00:00: mouth 2 [place] iron) 00 (two) Medical tablet times Branch daily. ibuprofen 2020-0 Yes [id number] 600mg Take 1 Univers 600 mg 2-11 tablet by ity of tablet 00:00: mouth [place] 00 every 6 Medical (six) Branch hours as needed (Pain). Take with food or milk. HYDROcodone 2020-0 Yes [id number] 1{tbl} Take 1 Univers -acetaminop 2-11 tablet by ity of hen 5-325 00:00: mouth [place] mg tablet 00 every 6 Medical (six) Branch hours as needed for Pain (scale 4-6). simethicone 2020-0 Yes [id number] 160mg Take 2 Univers 80 mg 2-11 tablets by ity of chewable 00:00: mouth [place] tablet 00 after Medical meals and Branch at bedtime as needed for Gas. 2020-0 Yes [id number] 1{tbl} Take 1 Univers vitamin 2-11 tablet by ity of w/FA tablet 00:00: mouth [place] 00 daily. Medical Branch docusate 2020-0 Yes [id number] 240mg Take 1 U nivers calcium 240 2-11 capsule by it y of mg capsule 00:00: mouth once [place] 00 daily as Medical needed for Branch Constipati on. ferrous 2020-0 Yes [id number] 325mg Take 1 Un yonny sulfate 325 2-11 tablet by ity of mg (65 mg 00:00: mouth 2 [place] iron) 00 (two) Medical tablet times Branch daily. ibuprofen 2020-0 Yes [id number] 600mg Take 1 Univers 600 mg 2-11 tablet by ity of tablet 00:00: mouth [place] 00 every 6 Medical (six) Branch hours as needed (Pain). Take with food or milk. HYDROcodone 2020-0 Yes [id number] 1{tbl} Take 1 Univers -acetaminop 2-11 tablet by ity of hen 5-325 00:00: mouth [place] mg tablet 00 every 6 Medical (six) Branch hours as needed for Pain (scale 4-6). simethicone 2020-0 Yes [id number] 160mg Take 2 Univers 80 mg 2-11 tablets by ity of chewable 00:00: mouth [place] tablet 00 after Medical meals and Branch at bedtime as needed for Gas. 2020-0 Yes [id number] 1{tbl} Take 1 Univers vitamin 2-11 tablet by ity of w/FA tablet 00:00: mouth [place] 00 daily. Medical Branch docusate 2020-0 Yes [id number] 240mg Take 1 U nivers calcium 240 2-11 capsule by it y of mg capsule 00:00: mouth once [place] 00 daily as Medical needed for Branch Constipati on. ferrous 2020-0 Yes [id number] 325mg Take 1 Un yonny sulfate 325 2-11 tablet by ity of mg (65 mg 00:00: mouth 2 [place] iron) 00 (two) Medical tablet times Branch daily. ibuprofen 2020-0 Yes [id number] 600mg Take 1 Univers 600 mg 2-11 tablet by ity of tablet 00:00: mouth [place] 00 every 6 Medical (six) Branch hours as needed (Pain). Take with food or milk. HYDROcodone 2020-0 Yes [id number] 1{tbl} Take 1 Univers -acetaminop 2-11 tablet by ity of hen 5-325 00:00: mouth [place] mg tablet 00 every 6 Medical (six) Branch hours as needed for Pain (scale 4-6). simethicone 2020-0 Yes [id number] 160mg Take 2 Univers 80 mg 2-11 tablets by ity of chewable 00:00: mouth [place] tablet 00 after Medical meals and Branch at bedtime as needed for Gas. 2020-0 Yes [id number] 1{tbl} Take 1 Univers vitamin 2-11 tablet by ity of w/FA tablet 00:00: mouth [place] 00 daily. Medical Branch docusate 2020-0 Yes [id number] 240mg Take 1 U nivers calcium 240 2-11 capsule by it y of mg capsule 00:00: mouth once [place] 00 daily as Medical needed for Branch Constipati on. ferrous 2020-0 Yes [id number] 325mg Take 1 Un yonny sulfate 325 2-11 tablet by ity of mg (65 mg 00:00: mouth 2 [place] iron) 00 (two) Medical tablet times Branch daily. ibuprofen 2020-0 Yes [id number] 600mg Take 1 Univers 600 mg 2-11 tablet by ity of tablet 00:00: mouth [place] 00 every 6 Medical (six) Branch hours as needed (Pain). Take with food or milk. HYDROcodone 2020-0 Yes [id number] 1{tbl} Take 1 Univers -acetaminop 2-11 tablet by ity of hen 5-325 00:00: mouth [place] mg tablet 00 every 6 Medical (six) Branch hours as needed for Pain (scale 4-6). simethicone 2020-0 Yes [id number] 160mg Take 2 Univers 80 mg 2-11 tablets by ity of chewable 00:00: mouth [place] tablet 00 after Medical meals and Branch at bedtime as needed for Gas. 2020-0 Yes [id number] 1{tbl} Take 1 Univers vitamin 2-11 tablet by ity of w/FA tablet 00:00: mouth [place] 00 daily. Medical Branch docusate 2020-0 Yes [id number] 240mg Take 1 U nivers calcium 240 2-11 capsule by it y of mg capsule 00:00: mouth once [place] 00 daily as Medical needed for Branch Constipati on. ferrous 2020-0 Yes [id number] 325mg Take 1 Un yonny sulfate 325 2-11 tablet by ity of mg (65 mg 00:00: mouth 2 [place] iron) 00 (two) Medical tablet times Branch daily. ibuprofen 2020-0 Yes [id number] 600mg Take 1 Univers 600 mg 2-11 tablet by ity of tablet 00:00: mouth [place] 00 every 6 Medical (six) Branch hours as needed (Pain). Take with food or milk. HYDROcodone 2020-0 Yes [id number] 1{tbl} Take 1 Univers -acetaminop 2-11 tablet by ity of hen 5-325 00:00: mouth [place] mg tablet 00 every 6 Medical (six) Branch hours as needed for Pain (scale 4-6). simethicone 2020-0 Yes [id number] 160mg Take 2 Univers 80 mg 2-11 tablets by ity of chewable 00:00: mouth [place] tablet 00 after Medical meals and Branch at bedtime as needed for Gas. 2020-0 Yes [id number] 1{tbl} Take 1 Univers vitamin 2-11 tablet by ity of w/FA tablet 00:00: mouth [place] 00 daily. Medical Branch docusate 0 Yes [id number] 240mg Take 1 U nivers calcium 240 2-11 capsule by it y of mg capsule 00:00: mouth once [place] 00 daily as Medical needed for Branch Constipati on. ferrous Yes [id number] 325mg Take 1 Un yonny sulfate 325 2-11 tablet by ity of mg (65 mg 00:00: mouth 2 [place] iron) 00 (two) Medical tablet times Branch daily. ibuprofen Yes [id number] 600mg Take 1 Univers 600 mg 2-11 tablet by ity of tablet 00:00: mouth [place] 00 every 6 Medical (six) Branch hours as needed (Pain). Take with food or milk. HYDROcodone Yes [id number] 1{tbl} Take 1 Univers -acetaminop 2-11 tablet by ity of hen 5-325 00:00: mouth [place] mg tablet 00 every 6 Medical (six) Branch hours as needed for Pain (scale 4-6). simethicone 2019- No [id number] 160mg Take 2 Univers 80 mg 2-11 -16 tablets by ity of chewable 00:00: 00:00 mouth [place] tablet 00 :00 after Medical meals and Branch at bedtime as needed for Gas. 2019- No [id number] 1{tbl} Take 1 [facility] vitamin 2-11 06-16 tablet by ity of w/FA tablet 00:00: 00:00 mouth [place] 00 :00 daily. Medical Branch docusate 2020- No [id number] 240mg Take 1 [facility] calcium 240 2-11 06-16 capsule by i ty of mg capsule 00:00: 00:00 mouth once [place] 00 :00 daily as Medical needed for Branch Constipati on. ferrous 2019- 2020- No [id number] 325mg Take 1 [facility] nivers sulfate 325 2-11 06-16 tablet by it y of mg (65 mg 00:00: 00:[place] 00 :00 (two) Medical tablet times Branch daily. ibuprofen 2019- No [id number] 600mg Take 1 [facility] 600 mg 2-11 06-16 tablet by ity of tablet 00:00: 00:00 mouth [place] 00 :00 every 6 Medical (six) Branch hours as needed (Pain). Take with food or milk. HYDROcodone 2019- No [id number] 1{tbl} Take 1 [facility] -acetaminop 08-11-16 tablet by it y of hen 5-325 00:00: 00:00 mouth [place] mg tablet 00 :00 every 6 Medical (six) Branch hours as needed for Pain (scale 4-6). simethicone 2019- No [id number] 160mg Take 2 [facility] 80 mg 08-11-16 tablets by ity of chewable 00:00: 00:00 mouth [place] tablet 00 :00 after Medical meals and Branch at bedtime as needed for Gas. 2019- No [id number] 1{tbl} Take 1 [facility] vitamin 08-11-16 tablet by ity of w/FA tablet 00:00: [place] daily. [facility] docusate 2019- No [id number] 240mg Take 1 [facility] calcium 240 08-1116 capsule by i ty of mg capsule 00:00: 00:00 mouth once [place] 00 :00 daily as Medical needed for Branch Constipati on. ferrous 2019- No [id number] 325mg Take 1 U nivers sulfate 325 08-11-16 tablet by it y of mg (65 mg 00:00: 00:00 [place] 00 :00 (two) Medical tablet times Branch daily. ibuprofen 2019- No [id number] 600mg Take 1 [facility] 600 mg 08-11-16 tablet by ity of tablet 00:00: 00:00 mouth [place] 00 :00 every 6 Medical (six) Branch hours as needed (Pain). Take with food or milk. HYDROcodone 2019- No [id number] 1{tbl} Take 1 [facility] -acetaminop -05 06-16 tablet by it y of hen 5-325 00:00: 00:00 mouth [place] mg tablet 00 :00 every 6 Medical (six) Branch hours as needed for Pain (scale 4-6). ferrous 2019- Yes [id number] 325mg Take 1 Un yonny sulfate 325 1-24 tablet by ity of mg (65 mg 00:00: mouth 2 [place] iron) 00 (two) Medical tablet times Branch daily. ascorbic 2020-0 Yes [id number] 500mg Take 1 [facility] n[facility] acid, 1-24 tablet by [facility] vitamin C, 00:00: [place] 500 mg 00 (three) Medical tablet times Branch daily. ferrous 2020-0 Yes [id number] 325mg Take 1 Un [facility] sulfate 325 1-24 tablet by ity of mg (65 mg 00:00: mouth 2 [place] iron) 00 (two) Medical tablet times Branch daily. ascorbic 2020-0 Yes [id number] 500mg Take 1 [facility] nivers acid, 1-24 tablet by [facility] vitamin C, 00:00: mouth [place] 500 mg 00 (three) Medical tablet times Branch daily. ferrous 2020-0 Yes [id number] 325mg Take 1 [facility] sulfate 325 1-24 tablet by ity of mg (65 mg 00:00: mouth 2 [place] iron) 00 (two) Medical tablet times Branch daily. ascorbic 2020-0 Yes [id number] 500mg Take 1 [facility] nivers acid, 1-24 tablet by [facility] of vitamin C, 00:00: mouth [place] 500 mg 00 (three) Medical tablet times Branch daily. ferrous 2020-0 Yes [id number] 325mg Take 1 Un [facility] sulfate 325 1-24 tablet by ity of mg (65 mg 00:00: mouth 2 [place] iron) 00 (two) Medical tablet times Branch daily. ascorbic 2020-0 Yes [id number] 500mg Take 1 U nivers acid, 1-24 tablet by [facility] of vitamin C, 00:00: mouth [place] 500 mg 00 (three) Medical tablet times Branch daily. ferrous 2020-0 Yes [id number] 325mg Take 1 Un [facility] sulfate 325 1-24 tablet by ity of mg (65 mg 00:00: mouth 2 [place] iron) 00 (two) Medical tablet times Branch daily. ascorbic 2020-0 Yes [id number] 500mg Take 1 U nivers acid, 1-24 tablet by it[facility] of vitamin C, 00:00: mouth [place] 500 mg 00 (three) Medical tablet times Branch daily. ferrous 2020-0 Yes [id number] 325mg Take 1 [facility] sulfate 325 1-24 tablet by ity of mg (65 mg 00:00: mouth 2 [place] iron) 00 (two) Medical tablet times Branch daily. ascorbic 2020-0 Yes [id number] 500mg Take 1 U nivers acid, 1-24 tablet by [facility] of vitamin C, 00:00: mouth [place] 500 mg 00 (three) Medical tablet times Branch daily. ferrous 2020-0 Yes [id number] 325mg Take 1 [facility] sulfate 325 1-24 tablet by ity of mg (65 mg 00:00: mouth 2 [place] iron) 00 (two) Medical tablet times Branch daily. ascorbic 2020-0 Yes [id number] 500mg Take 1 U nivers acid, 1-24 tablet by ity of vitamin C, 00:00: mouth [place] 500 mg 00 (three) Medical tablet times Branch daily. ferrous 2020-0 Yes [id number] 325mg Take 1 Un [facility] sulfate 325 1-24 tablet by ity of mg (65 mg 00:00: mouth 2 [place] iron) 00 (two) Medical tablet times Branch daily. ascorbic 2020-0 Yes [id number] 500mg Take 1 U nivers acid, 1-24 tablet by [facility] of vitamin C, 00:00: mouth [place] 500 mg 00 (three) Medical tablet times Branch daily. ferrous 2020-0 Yes [id number] 325mg Take 1 Un [facility] sulfate 325 1-24 tablet by ity of mg (65 mg 00:00: mouth 2 [place] iron) 00 (two) Medical tablet times Branch daily. ascorbic 2020-0 Yes [id number] 500mg Take 1 U nivers acid, 1-24 tablet by ity of vitamin C, 00:00: mouth [place] 500 mg 00 (three) Medical tablet times Branch daily. ferrous 2020-0 Yes [id number] 325mg Take 1 Un [facility] sulfate 325 1-24 tablet by ity of mg (65 mg 00:00: mouth 2 [place] iron) 00 (two) Medical tablet times Branch daily. ascorbic 2020-0 Yes [id number] 500mg Take 1 U nivers acid, 1-24 tablet by ity of vitamin C, 00:00: mouth [place] 500 mg 00 (three) Medical tablet times Branch daily. ferrous 2020-0 Yes [id number] 325mg Take 1 [facility] sulfate 325 1-24 tablet by ity of mg (65 mg 00:00: mouth 2 [place] iron) 00 (two) Medical tablet times Branch daily. ascorbic 2020-0 Yes [id number] 500mg Take 1 [facility] nivers acid, 1-24 tablet by it[facility] of vitamin C, 00:00: mouth 3 [place] 500 mg 00 (three) Medical tablet times Branch daily. ferrous 2020-0 Yes [id number] 325mg Take 1 Un [facility] sulfate 325 1-24 tablet by ity of mg (65 mg 00:00: mouth 2 [place] iron) 00 (two) Medical tablet times Branch daily. ascorbic 2020-0 Yes [id number] 500mg Take 1 U nivers acid, 1-24 tablet by ity of vitamin C, 00:00: mouth 3 [place] 500 mg 00 (three) Medical tablet times Branch daily. ferrous 2020-0 Yes [id number] 325mg Take 1 Un [facility] sulfate 325 1-24 tablet by ity of mg (65 mg 00:00: mouth 2 [place] iron) 00 (two) Medical tablet times Branch daily. ascorbic 2020-0 Yes [id number] 500mg Take 1 U nivers acid, 1-24 tablet by it[facility] of vitamin C, 00:00: mouth [place] 500 mg 00 (three) Medical tablet times Branch daily. ferrous 2020-0 Yes [id number] 325mg Take 1 Un [facility] sulfate 325 1-24 tablet by ity of mg (65 mg 00:00: mouth 2 [place] iron) 00 (two) Medical tablet times Branch daily. ascorbic 2020-0 Yes [id number] 500mg Take 1 U nivers acid, 1-24 tablet by ity of vitamin C, 00:00: mouth [place] 500 mg 00 (three) Medical tablet times Branch daily. ferrous 2020-0 Yes [id number] 325mg Take 1 Un [facility] sulfate 325 1-24 tablet by ity of mg (65 mg 00:00: mouth 2 [place] iron) 00 (two) Medical tablet times Branch daily. ascorbic 2020-0 Yes [id number] 500mg Take 1 U nivers acid, 1-24 tablet by ity of vitamin C, 00:00: mouth 3 [place] 500 mg 00 (three) Medical tablet times Branch daily. ferrous 2020-0 Yes [id number] 325mg Take 1 Un y[facility]ny sulfate 325 1-24 tablet by ity of mg (65 mg 00:00: mouth 2 [place] iron) 00 (two) Medical tablet times Branch daily. ascorbic 2020-0 Yes [id number] 500mg Take 1 U nivers acid, -24 tablet by ity of vitamin C, 00:00: mouth 3 [place] 500 mg 00 (three) Medical tablet times Branch daily. ferrous 2019-2019- No [id number] 325mg Take 1 U nivers sulfate 325 07-24-16 tablet by it y of mg (65 mg 00:00: 00:00 mouth [place] iron[place] 00 :00 (two) Medical tablet times Branch daily. ascorbic 2019-0 2020- No [id number] 500mg Take 1 [facility] acid, 07-24-16 tablet by ity of vitamin C, 00:00: 00:00 mouth 3 [place] 500 mg 00 :00 (three) Medical tablet times Branch daily. ferrous 2019-2019- No [id number] 325mg Take 1 U nivers sulfate 325 07-24-16 tablet by it y of mg (65 mg 00:00: 00:00 mouth [place] iron[place] 00 :00 (two) Medical tablet times Branch daily. ascorbic 2019- No [id number] 500mg Take 1 [facility] acid, 07-24-16 tablet by ity of vitamin C, 00:00: 00:00 mouth 3 [place] 500 mg 00 :00 (three) Medical tablet times Branch daily. Iron, Cbn & 2018-0 Yes 1{tbl} Take 1 Un yonny Gluc-FA-B12 2-19 tablet by ity of -C-DSS 00:00: mouth [place] (FERRALET 00 daily. [address] DUAL-IRON DELIVERY) 90-1-12-50 mg-mg-mcg-m g per tablet Iron, Cbn & 2018-0 Yes 1{tbl} Take 1 Un [facility] Gluc-FA-B12 2-19 tablet by ity of -C-DSS 00:00: mouth [place] ([place]ERR[place]ET 00 daily. [address] DUAL-IRON DELIVERY) 90-1-12-50 mg-mg-mcg-m g per tablet Iron, Cbn & 2018-0 Yes 1{tbl} Take 1 Un [place] Gluc-FA-B12 2-19 tablet by ity of -C-DSS 00:00: mouth [place] ([place]ERR[place]ET 00 daily. [address] DUAL-IRON DELIVERY) 90-1-12-50 mg-mg-mcg-m g per tablet Iron, Cbn & 2018-0 Yes 1{tbl} Take 1 Un [facility] Gluc-FA-B12 2-19 tablet by ity of -C-DSS 00:00: mouth [place] ([place]ET [address] daily. [address] DUAL-IRON DELIVERY) 90-1-12-50 mg-mg-mcg-m g per tablet Iron, Cbn & 2018-0 Yes 1{tbl} Take 1 [facility] [place] Gluc-FA-B12 2-19 tablet by ity of -C-DSS 00:00: mouth [place] ([place]ERR[place]ET [address] daily. [address] DUAL-IRON DELIVERY) 90-1-12-50 mg-mg-mcg-m g per tablet Iron, Cbn & 2018-0 Yes 1{tbl} Take 1 Un [place] Gluc-FA-B12 2-19 tablet by ity of -C-DSS 00:00: mouth [place] ([place]ET [address] daily. [address] DUAL-IRON DELIVERY) 90-1-12-50 mg-mg-mcg-m g per tablet Iron, Cbn & 2018-0 Yes 1{tbl} Take 1 Un [facility] Gluc-FA-B12 2-19 tablet by ity of -C-DSS 00:00: mouth [place] ([place]ET [address] daily. [address] DUAL-IRON DELIVERY) 90-1-12-50 mg-mg-mcg-m g per tablet Iron, Cbn & 2018-0 Yes 1{tbl} Take 1 Un [place] Gluc-FA-B12 2-19 tablet by ity of -C-DSS 00:00: mouth [place] ([place]ET [address] daily. [address] DUAL-IRON DELIVERY) 90-1-12-50 mg-mg-mcg-m g per tablet Iron, Cbn & 2018-0 Yes 1{tbl} Take 1 Un [facility] Gluc-FA-B12 2-19 tablet by ity of -C-DSS 00:00: mouth [place] ([place] [address] daily. [address] DUAL-IRON DELIVERY) 90-1-12-50 mg-mg-mcg-m g per tablet Iron, Cbn & 2018-0 Yes 1{tbl} Take 1 [facility] [place] Gluc-FA-B12 2-19 tablet by ity of -C-DSS 00:00: mouth [place] ([place] [address] daily[address] DUAL-IRON DELIVERY) 90-1-12-50 mg-mg-mcg-m g per tablet Iron, Cbn & 2018-0 Yes 1{tbl} Take 1 [facility] [place] Gluc-FA-B12 2-19 tablet by ity of -C-DSS 00:00: mouth [place] ([place] [address] daily[address] DUAL-IRON DELIVERY) 90-1-12-50 mg-mg-mcg-m g per tablet Iron, Cbn & 2018-0 Yes 1{tbl} Take 1 [facility] [place] Gluc-FA-B12 2-19 tablet by ity of -C-DSS 00:00: mouth [place] ([place] [address] daily[address] DUAL-IRON DELIVERY) 90-1-12-50 mg-mg-mcg-m g per tablet Iron, Cbn & 2018-0 Yes 1{tbl} Take 1 [facility] [place] Gluc-FA-B12 2-19 tablet by ity of -C-DSS 00:00: mouth [place] ([place] [address] daily[address] DUAL-IRON DELIVERY) 90-1-12-50 mg-mg-mcg-m g per tablet Iron, Cbn & 2018-0 Yes 1{tbl} Take 1 [facility] [place] Gluc-FA-B12 2-19 tablet by ity of -C-DSS 00:00: mouth [place] ([place] [address] daily[address] DUAL-IRON DELIVERY) 90-1-12-50 mg-mg-mcg-m g per tablet Iron, Cbn & 2018-0 Yes 1{tbl} Take 1 [facility] [place] Gluc-FA-B12 2-19 tablet by ity of -C-DSS 00:00: mouth [place] ([place] [address] daily[address] DUAL-IRON DELIVERY) 90-1-12-50 mg-mg-mcg-m g per tablet Iron, Cbn & 2018-0 Yes 1{tbl} Take 1 [facility] [place] Gluc-FA-B12 2-19 tablet by ity of -C-DSS 00:00: mouth [place] ([place] [address] daily[address] DUAL-IRON DELIVERY) 90-1-12-50 mg-mg-mcg-m g per tablet Iron, Cbn & 2018-0 Yes 1{tbl} Take 1 [facility] [place] Gluc-FA-B12 2-19 tablet by ity of -C-DSS 00:00: mouth [place] ([place] [address] daily[address] DUAL-IRON DELIVERY) 90-1-12-50 mg-mg-mcg-m g per tablet Iron, Cbn & 2018-0 Yes 1{tbl} Take 1 [facility] [place] Gluc-FA-B12 2-19 tablet by ity of -C-DSS 00:00: mouth [place] ([place] [address] daily[address] DUAL-IRON DELIVERY) 90-1-12-50 mg-mg-mcg-m g per tablet Iron, Cbn & 2018-0 Yes 1{tbl} Take 1 [facility] [place] Gluc-FA-B12 2-19 tablet by ity of -C-DSS 00:00: mouth [place] ([place] [address] DUAL-IRON DELIVERY) 90-1-12-50 mg-mg-mcg-m g per tablet Iron, Cbn & 2018-0 Yes 1{tbl} Take 1 [facility] [place] Gluc-FA-B12 2-19 tablet by ity of -C-DSS 00:00: mouth [place] ([place] [address] DUAL-IRON DELIVERY) 90-1-12-50 mg-mg-mcg-m g per tablet Iron, Cbn & 2018-0 Yes 1{tbl} Take 1 [facility] [place] Gluc-FA-B12 2-19 tablet by ity of -C-DSS 00:00: mouth [place] ([place] [address] DUAL-IRON DELIVERY) 90-1-12-50 mg-mg-mcg-m g per tablet Iron, Cbn & 2018-0 Yes 1{tbl} Take 1 [facility] [place] Gluc-FA-B12 2-19 tablet by ity of -C-DSS 00:00: mouth [place] ([place] [address] DUAL-IRON DELIVERY) 90-1-12-50 mg-mg-mcg-m g per tablet Iron, Cbn & 2018-0 Yes 1{tbl} Take 1 [facility] [place] Gluc-FA-B12 2-19 tablet by ity of -C-DSS 00:00: mouth [place] ([place] [address] DUAL-IRON DELIVERY) 90-1-12-50 mg-mg-mcg-m g per tablet Iron, Cbn & 2018-0 2020- No 1{tbl} Take 1 U nivers Gluc-FA-B12 08-19-16 tablet by it y of -C-DSS 00:00: 00:00 mouth [place] ([place]ERR[place]ET 00 :[address] DUAL-IRON DELIVERY) 90-1-12-50 mg-mg-mcg-m g per tablet Iron, Cbn & 2020- No 1{tbl} Take 1 U nivers Gluc-FA-B12 08-19-16 tablet by it y of -C-DSS 00:00: 00:00 mouth [place] ([place]ERR[place]ET 00 :[address] DUAL-IRON DELIVERY) 90-1-12-50 mg-mg-mcg-m g per tablet No known No [facility] medications ity of [facility] Immunizations Ordered Filled Immunization Date Status Comments Sour e Immunization Name Name Tdap 2019-05-25 Completed University of 00:00:00 [facility] Tdap 2019-05-25 Completed University of 00:00:00 [facility] Tdap 2019-05-25 Completed University of 00:00:00 [facility] Tdap 2019-05-25 Completed University of 00:00:00 [facility] Tdap 2019-05-25 Completed University of 00:00:00 [facility] Tdap 2019-05-25 Completed University of 00:00:00 [facility] Tdap 2019-05-25 Completed University of 00:00:00 [facility] Tdap 2019-05-25 Completed University of 00:00:00 [facility] Tdap 2019-05-25 Completed University of 00:00:00 [facility] Tdap 2019-05-25 Completed University of 00:00:00 [facility] Tdap 2019-05-25 Completed University of 00:00:00 [facility] Tdap 2019-05-25 Completed University of 00:00:00 [facility] Tdap 2019-05-25 Completed University of 00:00:00 [facility] Tdap 2019-05-25 Completed University of 00:00:00 [facility] Tdap 2019-05-25 Completed University of 00:00:00 [facility] Tdap 2019-05-25 Completed University of 00:00:00 [facility] Tdap 2019-05-25 Completed University of 00:00:00 [facility] TDAP 2019-05-25 Completed University of 00:00:00 [place] [facility] TDAP 2019-05-25 Completed [facility] of 00:00:00 [place] [facility] TDAP 2019-05-25 Completed [facility] of 00:00:00 [place] [facility] TDAP 2019-05-25 Completed [facility] of 00:00:00 [place] [facility] TDAP 2019-05-25 Completed [facility] of 00:00:00 [place] [facility] TDAP 2019-05-25 Completed [facility] of 00:00:00 [place] [facility] TDAP 2019-05-25 Completed [facility] of 00:00:00 [place] [facility] TDAP 2019-05-25 Completed [facility] of 00:00:00 [place] [facility] TDAP 2019-05-25 Completed [facility] of 00:00:00 [place] [facility] TDAP 2019-05-25 Completed [facility] of 00:00:00 [place] [facility] TDAP 2019-05-25 Completed [facility] of 00:00:00 [place] [facility] Tdap 2019-05-25 Completed [facility] of 00:00:00 [facility] Tdap 2019-05-25 Completed [facility] of 00:00:00 [place] [facility] Tdap 2019-05-25 Completed [facility] of 00:00:00 [place] [facility] Tdap 2019-05-25 Completed University of 00:00:00 [facility] Tdap 2016-10-03 Completed University of 00:00:00 [place] [facility] Tdap 2016-10-03 Completed [facility] of 00:00:00 [place] [facility] Tdap 2016-10-03 Completed [facility] of 00:00:00 [place] [facility] Tdap 2016-10-03 Completed [facility] of 00:00:00 [place] [facility] Tdap 2016-10-03 Completed [facility] of 00:00:00 [place] [facility] Tdap 2016-10-03 Completed [facility] of 00:00:00 [place] [facility] Tdap 2016-10-03 Completed [facility] of 00:00:00 [place] [facility] Tdap 2016-10-03 Completed [facility] of 00:00:00 [place] [facility] Tdap 2016-10-03 Completed [facility] of 00:00:00 [place] [facility] Tdap 2016-10-03 Completed [facility] of 00:00:00 [place] [facility] Tdap 2016-10-03 Completed [facility] of 00:00:00 [facility] Tdap 2016-10-03 Completed [facility] of 00:00:00 [place] [facility] Tdap 2016-10-03 Completed [facility] of 00:00:00 [place] [facility] Tdap 2016-10-03 Completed [facility] of 00:00:00 [place] [facility] Tdap 2016-10-03 Completed [facility] of 00:00:00 [facility] Tdap 2016-10-03 Completed [facility] of 00:00:00 [place] [facility] Tdap 2016-10-03 Completed [facility] of 00:00:00 [place] [facility] Tdap 2016-10-03 Completed [facility] of 00:00:00 [place] [facility] TDAP 2016-10-03 Completed [facility] of 00:00:00 [place] [facility] TDAP 2016-10-03 Completed [facility] of 00:00:00 [place] [facility] TDAP 2016-10-03 Completed [facility] of 00:00:00 [facility] Tdap 2016-10-03 Completed [facility] of 00:00:00 [place] [facility] TDAP 2016-10-03 Completed [facility] of 00:00:00 [facility] TDAP 2016-10-03 Completed [facility] of 00:00:00 [place] [facility] TDAP 2016-10-03 Completed [facility] of 00:00:00 [place] [facility] Tdap 2016-10-03 Completed University of 00:00:00 [place] [facility] TDAP 2016-10-03 Completed University of 00:00:00 [place] [facility] TDAP 2016-10-03 Completed [facility] of 00:00:00 [place] [facility] TDAP 2016-10-03 Completed University of 00:00:00 [place] [facility] Tdap 2016-10-03 Completed University of 00:00:00 [place] [facility] TDAP 2016-10-03 Completed [facility] of 00:00:00 [place] [facility] TDAP 2016-10-03 Completed University of 00:00:00 [place] [facility] Tdap 2016-10-03 Completed University of 00:00:00 [place] [facility] Tdap 2016-10-03 Completed University of 00:00:00 [place] [facility] Tdap 2016-10-03 Completed University of 00:00:00 [place] [facility] Tdap 2016-10-03 Completed University of 00:00:00 [facility] Vital Signs Vital Name Observation Time Observation Value Comments Source Systolic blood 2021-05-08 21:08:00 131 mm[Hg] Univer sity of pressure [facility] Diastolic blood 2021-05-08 21:08:00 78 mm[Hg] Unive rsity of pressure [facility] Heart rate 2021-05-08 21:08:00 109 /min [facility] [place] [facility] Body temperature 2021-05-08 21:08:00 35.17 Irina Univ ersity of [place] [facility] Respiratory rate 2021-05-08 21:08:00 18 /min Univ ersity of [place] [facility] Body height 2021-05-08 21:08:00 167.6 cm [facility] [place] [facility] Body weight 2021-05-08 21:08:00 112.129 kg [facility] [place] [facility] BMI 2021-05-08 21:08:00 39.90 kg/m2 [facility] [place] [facility] Systolic blood 2021-02-13 14:45:00 122 mm[Hg] Univer sity of pressure [place] [facility] Diastolic blood 2021-02-13 14:45:00 88 mm[Hg] Unive rsity of pressure [place] [facility] Heart rate 2021-02-13 14:45:00 78 /min [facility] [place] [facility] Body temperature 2021-02-13 14:45:00 36.89 Irina [facility] [place] [facility] Respiratory rate 2021-02-13 14:45:00 16 /min Univ ersity of [place] [facility] Body height 2021-02-13 14:45:00 167.6 cm [facility] [place] [facility] Body weight 2021-02-13 14:45:00 111.131 kg [facility] [place] [facility] BMI 2021-02-13 14:45:00 39.54 kg/m2 [facility] [place] [facility] Systolic blood 2020-11-18 13:55:00 110 mm[Hg] Univer sity of pressure [facility] Diastolic blood 2020-11-18 13:55:00 72 mm[Hg] Unive rsity of pressure [facility] Heart rate 2020-11-18 13:55:00 84 /min [facility] [place] [facility] Body temperature 2020-11-18 13:55:00 36.89 Irina [facility] [place] [facility] Respiratory rate 2020-11-18 13:55:00 16 /min [facility] ersity of [place] [facility] Body height 2020-11-18 13:55:00 167.6 cm [facility] [place] [facility] Body weight 2020-11-18 13:55:00 111.131 kg [facility] [place] [facility] BMI 2020-11-18 13:55:00 39.54 kg/m2 [facility] [place] [facility] Systolic blood 2020-08-26 21:59:00 122 mm[Hg] Univer sity of pressure [facility] Diastolic blood 2020-08-26 21:59:00 83 mm[Hg] Unive rsity of pressure [facility] Heart rate 2020-08-26 21:59:00 90 /min [facility] [place] [facility] Body temperature 2020-08-26 21:59:00 37 Irina [facility] [place] [facility] Respiratory rate 2020-08-26 21:59:00 16 /min [facility] [place] [facility] Body height 2020-08-26 21:59:00 167.6 cm [facility] [place] [facility] Body weight 2020-08-26 21:59:00 114.624 kg [facility] [place] [facility] BMI 2020-08-26 21:59:00 40.79 kg/m2 [facility] [place] [facility] Systolic blood 2020-05-31 21:48:00 135 mm[Hg] Univer sity of pressure [facility] Diastolic blood 2020-05-31 21:48:00 83 mm[Hg] Unive rsity of pressure [facility] Heart rate 2020-05-31 21:48:00 83 /min [facility] Body temperature 2020-05-31 21:48:00 36.56 Irina [facility] [place] [facility] Respiratory rate 2020-05-31 21:48:00 16 /min [facility] [place] [facility] Body height 2020-05-31 21:48:00 167.6 cm [facility] Body weight 2020-05-31 21:48:00 116.234 kg [facility] [place] [facility] BMI 2020-05-31 21:48:00 41.36 kg/m2 [facility] Systolic blood 2020-05-04 20:06:00 121 mm[Hg] Univer sity of pressure [facility] Diastolic blood 2020-05-04 20:06:00 79 mm[Hg] Unive rsity of pressure [facility] Heart rate 2020-05-04 20:06:00 80 /min [facility] Body temperature 2020-05-04 20:06:00 36.67 Irina [facility] [place] [facility] Respiratory rate 2020-05-04 20:06:00 16 /min [facility] [place] [facility] Body height 2020-05-04 20:06:00 167.6 cm [facility] [place] [facility] Body weight 2020-05-04 20:06:00 113.513 kg [facility] BMI 2020-05-04 20:06:00 40.39 kg/m2 [facility] Systolic blood 2020-04-19 15:37:00 119 mm[Hg] Univer sity of pressure [facility] Diastolic blood 2020-04-19 15:37:00 83 mm[Hg] Unive rsity of pressure [facility] Heart rate 2020-04-19 15:37:00 67 /min [facility] Body temperature 2020-04-19 15:37:00 36.67 Irina [facility] [place] [facility] Respiratory rate 2020-04-19 15:37:00 16 /min [facility] Body height 2020-04-19 15:37:00 167.6 cm [facility] Body weight 2020-04-19 15:37:00 114.669 kg [facility] BMI 2020-04-19 15:37:00 40.80 kg/m2 [facility] Systolic blood 2019-12-15 20:10:00 127 mm[Hg] Univer sity of pressure [facility] Diastolic blood 2019-12-15 20:10:00 84 mm[Hg] Unive rsity of pressure [facility] Heart rate 2019-12-15 20:10:00 72 /min [facility] Body temperature 2019-12-15 20:10:00 36.78 Irina [facility] Respiratory rate 2019-12-15 20:10:00 16 /min [facility] Body height 2019-12-15 20:10:00 167.6 cm [facility] Body weight 2019-12-15 20:10:00 109.969 kg [facility] BMI 2019-12-15 20:10:00 39.13 kg/m2 [facility] Body weight 2019-09-29 18:26:00 106.765 kg [facility] BMI 2019-09-29 18:26:00 37.99 kg/m2 [facility] Systolic blood 2019-09-01 15:29:00 121 mm[Hg] Univer sity of pressure [facility] Diastolic blood 2019-09-01 15:29:00 69 mm[Hg] Unive rsity of pressure [facility] Heart rate 2019-09-01 15:29:00 76 /min [facility] Body temperature 2019-09-01 15:29:00 36.11 Irina Univ [facility] Respiratory rate 2019-09-01 15:29:00 16 /min [facility] Body height 2019-09-01 15:29:00 167.6 cm [facility] Body weight 2019-09-01 15:29:00 106.765 kg [facility] BMI 2019-09-01 15:29:00 37.99 kg/m2 [facility] Systolic blood 2019-08-18 20:17:00 132 mm[Hg] [facility] Diastolic blood 2019-08-18 20:17:00 82 mm[Hg] [facility] Heart rate 2019-08-18 20:17:00 72 /min [facility] Body temperature 2019-08-18 20:17:00 36.11 Irina [facility] Respiratory rate 2019-08-18 20:17:00 16 /min [facility] Body height 2019-08-18 20:17:00 167.6 cm [facility] Body weight 2019-08-18 20:17:00 107.191 kg [facility] BMI 2019-08-18 20:17:00 38.14 kg/m2 [facility] Systolic blood 2019-08-13 14:00:00 110 mm[Hg] [facility] Diastolic blood 2019-08-13 14:00:00 50 mm[Hg] [facility] Heart rate 2019-08-13 14:00:00 60 /min [facility] Body temperature 2019-08-13 14:00:00 36.5 Irina [facility] Respiratory rate 2019-08-13 14:00:00 17 /min Univ [facility] Oxygen saturation in 2019-08-13 14:00:00 97 /min University Arterial blood by [facility] Pulse oximetry Branch Systolic blood 2019-08-10 21:02:00 117 mm[Hg] Univer [facility] Diastolic blood 2019-08-10 21:02:00 78 mm[Hg] Unive [facility] Heart rate 2019-08-10 21:02:00 96 /min [facility] Body temperature 2019-08-10 21:02:00 36.61 Irina Univ [facility] Respiratory rate 2019-08-10 21:02:00 16 /min Univ [facility] Body height 2019-08-10 21:02:00 167.6 cm [facility] Body weight 2019-08-10 21:02:00 115.724 kg [facility] BMI 2019-08-10 21:02:00 41.18 kg/m2 [facility] Systolic blood 2019-08-05 19:15:00 127 mm[Hg] [facility] Diastolic blood 2019-08-05 19:15:00 72 mm[Hg] Unive [facility] Heart rate 2019-08-05 19:15:00 84 /min [facility] Body temperature 2019-08-05 19:15:00 35.89 Irina Univ [facility] Respiratory rate 2019-08-05 19:15:00 16 /min Univ [facility] Body height 2019-08-05 19:15:00 167.6 cm [facility] Body weight 2019-08-05 19:15:00 117.652 kg [facility] BMI 2019-08-05 19:15:00 41.86 kg/m2 [facility] Systolic blood 2019-07-29 17:08:00 134 mm[Hg] [facility]iver [facility] Diastolic blood 2019-07-29 17:08:00 75 mm[Hg] Unive [facility] Heart rate 2019-07-29 17:08:00 95 /min [facility] Body temperature 2019-07-29 17:08:00 36.61 Irina Univ [facility] Respiratory rate 2019-07-29 17:08:00 16 /min Univ [facility] Body height 2019-07-29 17:08:00 167.6 cm [facility] Body weight 2019-07-29 17:08:00 114.817 kg [facility] BMI 2019-07-29 17:08:00 40.86 kg/m2 [facility] Systolic blood 2019-07-22 17:07:00 126 mm[Hg] [facility] Diastolic blood 2019-07-22 17:07:00 80 mm[Hg] Unive [facility]ity of [facility] Heart rate 2019-07-22 17:07:00 96 /min [facility] Body temperature 2019-07-22 17:07:00 36.[address] 2019-07-22 17:07:00 16 /min Univ [facility] Body height 2019-07-22 17:07:00 167.6 cm [facility] Body weight 2019-07-22 17:07:00 114.335 kg [facility] BMI 2019-07-22 17:07:00 40.68 kg/m2 [facility] Procedures Procedure Date / Time Performing Clinician Source Performed ASSIGNMENT OF BENEFITS 2021-05-08 21:04:43 Doctor Unassigned, No [facility] POCT TEST 2020-05-31 21:54:00 Heather Gutierrez [facility] POCT TEST 2020-05-04 20:08:00 George Montero [facility] POCT TEST 2020-04-19 00:00:00 George Montero [facility] POCT TEST 2019-12-15 20:35:00 George Montero [facility] ASSIGNMENT OF BENEFITS 2019-12-15 19:29:32 Doctor Unassigned, No [facility] CBC WITH DIFFERENTIAL 2019-08-11 20:47:00 Kothmann, Emily [facility] VENOUS CORD GAS 2019-08-11 08:42:00 Kat [facility] SECTION 2019-08-11 07:31:00 Marta Rowley [facility] Chen [facility] CBC WITH DIFFERENTIAL 2019-08-11 04:46:00 [facility] B SURFACE 2019-08-11 04:46:00 Kat [facility] ANTIGEN [facility] GALV ONLY - SYPHILIS 2019-08-11 04:46:00 Bob Stephens [facility] IGG/IGM [facility] PANEL IDENTIFICATION 2019-08-11 04:30:00 Kat [facility] RHO (D) IMMUNE GLOBULIN 2019-08-11 04:30:00 Kat [facility] ABORH INVESTIGATION 2019-08-11 04:30:00 Kat [facility] POCT URINALYSIS 2019-08-10 21:06:[address] [facility] POCT URINALYSIS 2019-08-05 19:17:[address] [facility] POCT URINALYSIS GLUCOSE & 2019-07-29 17:12:00 George Montero [facility] PROTEIN [facility] POCT URINALYSIS 2019-07-22 17:16:[address] [facility] FIRST TRIMESTER 2019-02-03 15:25:00 Renetta Nuñez [facility] ULTRASOUND [facility] Encounters Start End Encounter Admission Attending Care Care Encounter Source Date/Time Date/Time Type Type Clinicians Facility Department ID 2021-07-31 2021-07-31 Outpatient R [facility] [id number] Univers 15:00:00 15:00:[id number] [facility] 2021-07-31 2021-07-31 Outpatient R [facility] [id number] Univers 15:00:00 15:00:[address] [facility] 2021-05-08 2021-05-08 Nurse Visit, GueraRmluanap Nurse [facility] 1.2 .840.114 [id number] Univers 15:02:12 15:10:55 Visit George Montero STRAP MAKING MACHINE OPERATOR [id number]7.2.686 Nick as MATERNAL [phone] [facility] & [address] 2021-05-08 2021-05-08 [facility] [id number] Univers 15:00:00 15:10:55 GEORGE ity o [facility] 2021-05-08 2021-05-08 Outpatient R [facility] [id number] Univers 15:00:00 15:00:00 [id number] ity [facility] 2021-05-08 2021-05-08 Orders Doctor HANDY 1.2.840.114 [id number] Univers 00:00:00 00:00:00 Only Unassigned, ADELINE 350.1.13.10 ity of [place] [address]2.686 Nick as [phone] [address] 2021-02-13 2021-02-13 [facility] 1.2.481.951 [id number] Univers 09:24:04 10:16:44 Visit Sarai Brice STRAP MAKING MACHINE OPERATOR 350.1.13.10 ity [facility] [id number] Nick as MATERNAL [phone] [facility] & [address] 2021-02-13 2021-02-13 Outpatient R PAMELA [facility] [id number] Univers 09:15:00 09:15:00 SARAI mullen o [facility] 2021-02-13 2021-02-13 [facility] [id number] Univers 08:30:00 08:30:00 GEORGE [id number] cindiy o f [facility] 2021-02-13 2021-02-13 [facility] [id number] Univers 08:30:00 08:30:00 GEORGE mullen o [facility] 2020-11-18 2020-11-18 Nurse Visit, Mar[facility] Nurse [facility] 1.2 .840.114 [id number] Univers 08:34:31 08:54:54 Visit Sarai Santiago STRAP MAKING MACHINE OPERATOR 350.1.13. 10 ity of [facility] [id number] Nick as MATERNAL [phone] [facility] ical & CHILD [address] [place] [address] 2020-11-18 2020-11-18 Outpatient R [facility] [id number] Univers 08:30:00 08:30:00 [id number] ity [facility] 2020-11-18 2020-11-18 [facility] [id number] Univers 08:30:00 08:30:00 SARAI ity o f [facility] 2020-11-17 2020-11-17 Outpatient R [facility] [id number] -[id number] Univers 16:00:00 16:00:00 [id number] ity [facility] 2020-11-17 2020-11-17 Outpatient R [facility] [id number] Univers 16:00:00 16:00:00 ity [facility] 2020-08-26 2020-08-26 Nurse Visit, Gueraluana Nurse [facility] 1.2 .840.114 [id number] Univers 15:50:08 16:05:33 Visit George Montero STRAP MAKING MACHINE OPERATOR [id number] ity of [facility] [id number] Nick as MATERNAL [phone] [facility] & CHILD [address] [place] [address] 2020-08-26 2020-08-26 Outpatient R [facility] [id number] Univers 16:00:00 16:00:00 [id number] ity [facility] 2020-08-26 2020-08-26 Outpatient R [facility] [id number] Univers 16:00:00 16:00:00 ity [facility] 2020-06-29 2020-06-29 Telephone Kylah [facility] [id number] Univers 00:00:00 00:00:00 George Burger STRAP MAKING MACHINE OPERATOR [id number] ity of [facility] 4.2.7.2.686 Nick as MATERNAL [phone] Med ical & CHILD [address] [place] [address] 2020-05-31 2020-05-31 Nurse Visit, Amanda Nurse [facility] 1.2 .840.114 [id number] Univers 15:38:44 16:14:25 Visit Sarai Santiago STRAP MAKING MACHINE OPERATOR 350.1.13. 10 ity of [facility] [id number] Nick as MATERNAL [phone] [facility] & CHILD [address] [place] [address] 2020-05-31 2020-05-31 Outpatient R [facility] [id number] Univers 16:00:00 16:00:00 ity [facility] 2020-05-31 2020-05-31 [facility] [id number] Univers 16:00:00 16:00:00 SARAI soni [facility] 2020-05-18 2020-05-18 Outpatient R [facility] [id number] Univers 13:30:00 13:30:00 [id number] ity [facility] 2020-05-18 2020-05-18 Outpatient R [facility] [id number] Univers 13:30:00 13:30:00 ity of [facility] 2020-05-04 2020-05-04 Outpatient R [facility] [id number] Univers 15:00:00 15:00:00 ity [facility] 2020-05-04 2020-05-04 Outpatient R [facility] [id number] Univers 15:00:00 15:00:00 ity [facility] 2020-05-04 2020-05-04 Nurse Visit, Amanda Nurse [facility] 1.2 .840.114 [id number] Univers 13:55:00 14:10:00 Visit Sarai Santiago STRAP MAKING MACHINE OPERATOR 350.1.13. 10 ity of [facility] [id number] Nick as MATERNAL [phone] [facility] & CHILD [address] [place] [address] 2020-05-04 2020-05-04 Outpatient R PAMELA [facility] [id number] Univers 14:00:00 14:00:00 SARAI soni [facility] 2020-04-19 2020-04-19 Office [facility] 1.2.840.114 [id number] Univers 10:23:54 10:43:21 Visit George R STRAP MAKING MACHINE OPERATOR 350.1.13.10 ity [facility] [id number] Nick as MATERNAL [phone] [facility] & [address] 2020-04-19 2020-04-19 Outpatient R KYLAH [facility] [id number] Univers 10:30:00 10:30:00 ROSNDA itkevin o [facility] 2020-04-19 2020-04-19 Outpatient R KYLAH [facility] [id number] Univers 10:30:00 10:30:00 ROSHUNDA itkevin o [facility] 2020-03-08 2020-03-08 Outpatient Tao MONTERO [facility] [id number] Univers 14:30:00 14:30:00 ROSNDA itkevin o [facility] 2020-03-08 2020-03-08 Outpatient R KYLAH [facility] [id number] Univers 14:30:00 14:30:[address] [facility]io [facility] 2019-12-15 2019-12-15 Office [facility] 1.2.840.114 [id number] Univers 14:30:34 14:45:34 Visit George R STRAP MAKING MACHINE OPERATOR 350.1.13.10 ity [facility] [id number] Nick as MATERNAL [phone] [facility] & [address] 2019-12-15 2019-12-15 Outpatient R KYLAH [facility] [id number] Univers 14:30:00 14:30:00 ROSNDA [id number] itkevin o [facility] 2019-12-15 2019-12-15 [facility] [id number] Univers 14:30:00 14:30:00 ROSNDA itkevin o [facility] 2019-12-15 2019-12-15 Rodolfo MURRELL 1.2.840.114 [id number] Univers 00:00:00 00:00:00 Only Unassigned, ADELINE 350.1.13.10 ity of [place] [facility] 4.2.7.2.686 Nick as [phone] [address] 2019-09-29 2019-09-29 Nurse Visit, Marlon-Rmchp Nurse [facility] 1.2 .840.114 [id number] Univers 12:49:29 13:22:02 Visit Lyubov Monterojason R STRAP MAKING MACHINE OPERATOR 350.1.13.10 ity of [facility] 4.2.7.2.686 Nick as MATERNAL [id number] [facility] & CHILD [address] [place] [address] 2019-09-29 2019-09-29 Outpatient R [facility] [id number] Univers 13:00:00 13:00:00 [id number] ity of [facility] 2019-09-29 2019-09-29 Outpatient [facility] [id number] Univers 13:00:00 13:00:00 GEORGE mullen o martin [facility] 2019-09-25 2019-09-25 Outpatient en_k MMG MM[facility] [id number] 05:06:00 05:06:00 [id number] 2019-09-22 2019-09-22 Telemedici [facility] 1.2.840.114 [id number] Univers 12:41:37 13:13:56 ne Visit Lyubovmjkenan Tao STRAP MAKING MACHINE OPERATOR 350.1.13.10 ity of [facility] 4.2.7.2.686 Nick as MATERNAL [phone] [facility] & CHILD [address] [place] [address] 2019-09-22 2019-09-22 Outpatient R KYLAH [facility] [id number] Univers 13:00:00 13:00:00 GEORGE [id number] itkevin o martin [facility] 2019-09-22 2019-09-22 Outpatient Tao MONTERO [facility] [id number] Univers 13:00:00 13:00:00 GEORGE mullen o f [facility] 2019-09-01 2019-09-01 Routine Akinlacy [facility] [id number] Univers 09:13:08 10:03:04 Sarai C STRAP MAKING MACHINE OPERATOR 350.1.13.10 ity of Visit REGIONAL 4.2.7.2.686 Nick as MATERNAL [id number] [facility] & CHILD [address] [place] [address] 2019-09-01 2019-09-01 Outpatient R PAMELA [facility] [id number] Univers 09:00:00 09:00:00 SARAI ity o f [facility] 2019-08-18 2019-08-18 Nurse Visit, [facility] Nurse [facility] 1.2 .840.114 [id number] Univers 14:08:42 14:28:57 Visit George Montero R STRAP MAKING MACHINE OPERATOR 350.1.13.10 ity of [facility] 4.2.7.2.686 Nick as MATERNAL [phone] [facility] & CHILD [address] [place] [address] 2019-08-10 2019-08-13 Hospital Marta [facility] 1.2.840.114 [id number] Univers 19:56:00 16:53:00 Encounter Orlin LR 350.1.13.10 ity of [facility] 4.2.7.2.686 Nick as [phone] [address] 2019-08-10 2019-08-11 [facility] 1.2.840.114 [id number] Univers 14:52:46 08:17:14 Roshunda R STRAP MAKING MACHINE OPERATOR 350.1.13.10 ity of Visit [facility] 4.2.7.2.686 Nick as MATERNAL [id number] [facility] & CHILD [address] [place] [address] 2019-08-05 2019-08-05 Routine [facility] 1.2.840.114 [id number] Univers 12:53:21 13:43:48 Roshunda R STRAP MAKING MACHINE OPERATOR 350.1.13.10 ity of Visit [facility] 4.2.7.2.686 Nick as MATERNAL [phone] [facility] & [address] 2019-07-29 2019-07-29 Routine [facility] 1.2.840.114 [id number] Univers 10:56:35 11:21:13 Roshunda R STRAP MAKING MACHINE OPERATOR 350.1.13.10 ity of Visit REGIONAL 4.2.7.2.686 Nick as MATERNAL [phone] Med ical & CHILD 107 [facility] 2019-07-24 2019-07-24 Telephone Kylah [facility] 1.2.156.336 [id number] Univers 00:00:00 00:00:00 Roshunda R STRAP MAKING MACHINE OPERATOR 350.1.13.10 ity of [facility] 4.2.7.2.686 Nick as MATERNAL [id number] [facility] ical & CHILD [address] [place] [address] 2019-07-22 2019-07-22 Routine [facility] 1.2.840.114 [id number] Univers 10:55:59 12:56:07 Roshunda R STRAP MAKING MACHINE OPERATOR 350.1.13.10 ity of Visit REGIONAL 4.2.7.2.686 Nick as MATERNAL [phone] [facility] ical & CHILD [address] [place] [address] 2019-03-04 2019-03-04 Telephone [facility] [id number] Univers 00:00:00 00:00:00 Roshunda R STRAP MAKING MACHINE OPERATOR 350.1.13.10 ity of [facility] 4.2.7.2.686 Nick as MATERNAL [phone] [facility] ical & CHILD [address] [place] [address] 2019-02-03 2019-02-03 Senior Maintenance Technician Lab, [facility] 1.2.84 0.114 [id number] Univers 10:47:09 11:16:19 Visit Esteban, Marleny Danica [facility] 350.1.1 3.10 ity of [place] R [facility] 4.2.7.2.686 [place] [id number] [facility] [address] 2019-02-03 2019-02-03 Senior Maintenance Technician 5, [facility] Room [facility] 1 .2.840.114 [id number] Univers 09:18:06 10:42:48 Visit Marleny Orellana [facility] 350.1.1 3.10 ity of [place] R CLINICS 4.2.7.2.686 [place] [id number] [facility] [address] 2019-02-03 2019-02-03 Brad Gamboa [facility] [id number] [id number] Univers 00:00:00 00:00:00 Management [facility] 350.1.13.10 [facility] 4.2.7.2.686 Pollo iglesias [id number] [address] Results Test Description Test Time Test Comments Results Result Comments Source POCT TEST 2020-05-31 21:54:00 Test Item Value Reference Range Interpretation Comme nts POCT PREG (test code = 1605) Negative On board controls acceptable with C Line (test code = 3574) Yes POCT PREG LOT # (test code = 3575) POCT PREG TEST DATE (test code = 3576) [facility] [id number] 20:08:00 Test Item Value Reference Range Interpretation Comments POCT PREG (test code = 1605) Negative On board controls acceptable with C Yes Line (test code = 3574) POCT PREG LOT # (test code = 3575) POCT PREG TEST DATE (test code = 3576) [facility] [id number] 15:41:00 Test Item Value Reference Range Interpretation Comments POCT PREG (test code = 1605) Negative On board controls acceptable with C Yes Line (test code = 3574) POCT PREG LOT # (test code = 3575) POCT PREG TEST DATE (test code = 3576) [facility] [id number] 15:41:00 Test Item Value Reference Range Interpretation Comments POCT PREG (test code = 1605) Negative On board controls acceptable with C Yes Line (test code = 3574) POCT PREG LOT # (test code = 3575) POCT PREG TEST DATE (test code = 3576) [facility] [id number] 20:35:00 Test Item Value Reference Range Interpretation Comments POCT PREG (test code = 1605) Negative On board controls acceptable with C Yes Line (test code = 3574) POCT PREG LOT # (test code = 3575) POCT PREG TEST DATE (test code = 3576) [id number] 20:35:00 Test Item Value Reference Range Interpretation Comments POCT PREG (test code = 1605) Negative On board controls acceptable with C Yes Line (test code = 3574) POCT PREG LOT # (test code = 3575) POCT PREG TEST DATE (test code = 3576) [facility] [id number] 20:26:06 Test Item Value Reference Range Interpretation Comments ANTIBODY ID (test code Anti-A1 Perfo rmed at [facility] = 245) Laboratory Serv [facility] Blood [address] [facility] [address]Rsfj Free: [phone] A No. [id number] [facility] WITH [id number] 21:59:00 Test Item Value Reference Range Interpretation Comments WBC (test code = See_Comment [Automated 7290-2) message] The sy stem which generated this result transmitted reference range : 4.30 - 11.10 10*3/?L. The reference range was not used to interpret this result as normal/abnormal . RBC (test code = See_Comment [Automated 929-8) message] The sy stem which generated this result transmitted reference range : 3.93 - 5.25 10*6/?L. The reference range was not used to interpret this result as normal/abnormal . HGB (test code = 8.5 g/dL 11.6-15 L 718-7) HCT (test code = 28.6 % 35.7-45.2 L 4544-3) MCV (test code = 71.5 fL 80.6-95.5 L 787-2) MCH (test code = 21.3 pg 25.9-32.8 L 785-6) MCHC (test code = 29.7 g/dL 31.6-35.1 L 786-4) RDW-SD (test code = 47.5 fL 39-49.9 11876-0) RDW-CV (test code = 18.6 % 12-15.5 H 788-0) PLT (test code = See_Comment [Automated 777-3) message] The sy stem which generated this result transmitted reference range : 166 - 358 10*3/ ?L. The reference r mich was not used to interpret this result as normal/abnormal . MPV (test code = 10.6 fL 9.5-12.9 16318-3) IPF % (test code = 4.5 % 1.3-7.7 Platelet count [id number]) measured by fluorescence method. NRBC/100 WBC (test See_Comment [Automat ed code = 7042444769) message] The system which generated this result transmitted reference range : 0.0 - 10.0 /100 WBCs. The refer ence range was not u sed to interpret th is result as normal/abnormal . NRBC x10^3 (test code <0.01 See_Comment [Auto mated = 8784281035) message] The s ystem which generated this result transmitted reference range : 10*3/?L. The reference range was not used to interpret this result as normal/abnormal . GRAN MAT (NEUT) % 80.2 % (test code = 770-8) IMM GRAN % (test code 0.50 % = 3542398132) LYMPH % (test code = 10.2 % 736-9) MONO % (test code = 8.0 % 5905-5) EOS % (test code = 0.8 % 713-8) BASO % (test code = 0.3 % 706-2) GRAN MAT x10^3(ANC) 8.89 10*3/uL 1.88-7.09 H (test code = 1149357574) IMM GRAN x10^3 (test 0.06 10*3/uL 0-0.06 code = 4932595669) LYMPH x10^3 (test code 1.13 10*3/uL 1.32-3.29 L = 731-0) MONO x10^3 (test code 0.89 10*3/uL 0.33-0.92 = 742-7) EOS x10^3 (test code = 0.09 10*3/uL 0.03-0.39 711-2) BASO x10^3 (test code 0.03 10*3/uL 0.01-0.07 = 704-7) Lab Interpretation Abnormal (test code = 85939-2) [facility] - SYPHILIS [id number] 15:56:00 Test Item Value Reference Range Interpretation Comments Syphilis IgG/IgM (test Non-reactive Non-reactive code = 35046-5) ARCHIE (test code = ARCHIE) Non-reactive - No serologic evidence of T. pallidum infection. Cannot exclude incubating or early syphilis. Submit a second specimen in 2-4 weeks if syphilis is clinically suspected. Equivocal - Further testing to follow. Reactive - Further testing to follow. Lab Interpretation (test Normal code = 53041-9) [facility] IMMUNE [id number] 12:40:44 Test Item Value Reference Range Interpretation Comments RHIG CANDIDATE? No- see comment Patient i s not a (test code = candidate for R hIg- 5055) Patient is Rh Positive.Perfor med at [facility] Laboratory Services - [facility] Blood [id number] [place] [id number] Free: [phone] A No. [id number] [facility] [id number] 09:07:00 Test Item Value Reference Range Interpretation Comments VENOUS BASE EXCESS, CORD mEq/L (test code = 5612624860) VENOUS PH, CORD (test 7.25-7.45 code = 2270315874) VENOUS PC02, CORD (test See_Comment H [Au tomated message] code = 0177134321) The syste m which generated this result transmitted ref erence range: 27 - 49 mmHg. The reference r mich was not used to interpret this result as normal/abnor mal. VENOUS PO2, CORD (test See_Comment [Aut omated message] code = 0050008197) The syste m which generated this result transmitted ref erence range: 17 - 41 mmHg. The reference r mich was not used to interpret this result as normal/abnor mal. VENOUS BICARBONATE, CORD See_Comment [A utomated message] (test code = 7962559516) The system which generated this result transmitted ref erence range: 12 - 29 mEq/L. The reference r mich was not used to interpret this result as normal/abnor mal. Lab Interpretation (test Abnormal code = 37332-7) [facility] [id number] 09:05:00 Test Item Value Reference Range Interpretation Comments BASE EXCESS, CORD (test mEq/L code = 2409867493) AC PH, CORD (BEAKER) 7.18-7.38 L (test code = 7420904820) PC02, CORD (test code = See_Comment [Au tomated message] 8400005660) The system whic h generated this result transmitted ref erence range: 32 - 66 mmHg. The reference r mich was not used to interpret this result as normal/abnor mal. PO2, CORD (test code = <10 See_Comment L [Aut omated message] 2415695622) The system whic h generated this result transmitted ref erence range: 10 - 30 mmHg. The reference r mich was not used to interpret this result as normal/abnor mal. BICARBONATE, CORD (test See_Comment [Au tomated message] code = 8322497888) The syste m which generated this result transmitted ref erence range: 17 - 27 mEq/L. The reference r mich was not used to interpret this result as normal/abnor mal. Lab Interpretation (test Abnormal code = 29422-6) [facility] INVESTIGATION [id number] 07:40:26 Test Item Value Reference Range Interpretation Comments ABO & RH (test A Positive RH 0; A2 cell 0; A code = 20) subgroupPerform ed at [facility] Laboratory Serv [facility] Blood [id number] [place], [place] [id number] Free: [phone] A No. [id number] [facility]uda[facility] B Surface [id number] 06:00:00 Test Item Value Reference Range Interpretation Comments HBsAg Semi-Quantitative (test code = Negative Negative 5195-3) [facility] WITH [id number] 05:02:00 Test Item Value Reference Range Interpretation Comments WBC (test code = See_Comment H [Automated 5790-2) message] The sy stem which generated this result transmitted reference range : 4.30 - 11.10 10*3/?L. The reference range was not used to interpret this result as normal/abnormal . RBC (test code = See_Comment [Automated 069-8) message] The sy stem which generated this result transmitted reference range : 3.93 - 5.25 10*6/?L. The reference range was not used to interpret this result as normal/abnormal . HGB (test code = 9.3 g/dL 11.6-15 L 718-7) HCT (test code = 31.1 % 35.7-45.2 L 4544-3) MCV (test code = 71.8 fL 80.6-95.5 L 787-2) MCH (test code = 21.5 pg 25.9-32.8 L 785-6) MCHC (test code = 29.9 g/dL 31.6-35.1 L 786-4) RDW-SD (test code = 47.4 fL 39-49.9 80806-2) RDW-CV (test code = 18.6 % 12-15.5 H 788-0) PLT (test code = See_Comment [Automated 777-3) message] The sy stem which generated this result transmitted reference range : 166 - 358 10*3/ ?L. The reference r mich was not used to interpret this result as normal/abnormal . MPV (test code = 9.6 fL 9.5-12.9 86465-3) NRBC/100 WBC (test See_Comment [Automat ed code = 7871543474) message] The system which generated this result transmitted reference range : 0.0 - 10.0 /100 WBCs. The refer ence range was not u sed to interpret th is result as normal/abnormal . NRBC x10^3 (test code <0.01 See_Comment [Auto mated = 2885376256) message] The s ystem which generated this result transmitted reference range : 10*3/?L. The reference range was not used to interpret this result as normal/abnormal . GRAN MAT (NEUT) % 80.9 % (test code = 770-8) IMM GRAN % (test code 0.50 % = 9106097452) LYMPH % (test code = 12.3 % 736-9) MONO % (test code = 5.7 % 5905-5) EOS % (test code = 0.4 % 713-8) BASO % (test code = 0.2 % 706-2) GRAN MAT x10^3(ANC) 9.17 10*3/uL 1.88-7.09 H (test code = 1979621582) IMM GRAN x10^3 (test 0.06 10*3/uL 0-0.06 code = 1093307311) LYMPH x10^3 (test code 1.39 10*3/uL 1.32-3.29 = 731-0) MONO x10^3 (test code 0.65 10*3/uL 0.33-0.92 = 742-7) EOS x10^3 (test code = 0.05 10*3/uL 0.03-0.39 711-2) BASO x10^3 (test code <0.03 0.01-0.07 = 704-7) Lab Interpretation Abnormal (test code = 29777-1) [facility] URINALYSIS W SPECIFIC [id number] 21:07:00 Test Item Value Reference Range Interpretation Comments POCT U SP GRAV (test code = . 1.005-1.025 3255) POCT PH U (test code = 3254) . 5-8 POCT U LEUK EST (test code = . Negative - Negative 3263) POCT U NIT (test code = 3262) . Negative - Negative POCT U PROT (test code = 3259) trace Negative - Negative POCT U GLU (test code = 3256) neg Negative - Negative POCT U KETONE (test code = 3258) . Negative - Negative POCT U UROBILI (test code = . 0.2-1 3260) POCT U BILI (test code = 3261) . Negative - Negative POCT U BLD (test code = 3257) . Negative - Negative POCT U COLOR (test code = 3266) . POCT U APPEAR (test code = 3267) . Lab Interpretation (test code = Abnormal 94022-2) [facility] URINALYSIS W SPECIFIC [id number] 21:07:00 Test Item Value Reference Range Interpretation Comments POCT U SP GRAV (test code = . 1.005-1.025 3255) POCT PH U (test code = 3254) . 5-8 POCT U LEUK EST (test code = . Negative - Negative 3263) POCT U NIT (test code = 3262) . Negative - Negative POCT U PROT (test code = 3259) trace Negative - Negative POCT U GLU (test code = 3256) neg Negative - Negative POCT U KETONE (test code = 3258) . Negative - Negative POCT U UROBILI (test code = . 0.2-1 3260) POCT U BILI (test code = 3261) . Negative - Negative POCT U BLD (test code = 3257) . Negative - Negative POCT U COLOR (test code = 3266) . POCT U APPEAR (test code = 3267) . Lab Interpretation (test code = Abnormal 68141-6) [facility] URINALYSIS W SPECIFIC [id number] 21:07:00 Test Item Value Reference Range Interpretation Comments POCT U SP GRAV (test code = . 1.005-1.025 3255) POCT PH U (test code = 3254) . 5-8 POCT U LEUK EST (test code = . Negative - Negative 3263) POCT U NIT (test code = 3262) . Negative - Negative POCT U PROT (test code = 3259) trace Negative - Negative POCT U GLU (test code = 3256) neg Negative - Negative POCT U KETONE (test code = 3258) . Negative - Negative POCT U UROBILI (test code = . 0.2-1 3260) POCT U BILI (test code = 3261) . Negative - Negative POCT U BLD (test code = 3257) . Negative - Negative POCT U COLOR (test code = 3266) . POCT U APPEAR (test code = 3267) . Lab Interpretation (test code = Abnormal 09396-3) [facility] URINALYSIS W SPECIFIC [id number] 19:17:00 Test Item Value Reference Range Interpretation Comments POCT U SP GRAV (test code = . 1.005-1.025 3255) POCT PH U (test code = 3254) . 5-8 POCT U LEUK EST (test code = . Negative - Negative 3263) POCT U NIT (test code = 3262) . Negative - Negative POCT U PROT (test code = 3259) trace Negative - Negative POCT U GLU (test code = 3256) neg Negative - Negative POCT U KETONE (test code = 3258) . Negative - Negative POCT U UROBILI (test code = . 0.2-1 3260) POCT U BILI (test code = 3261) . Negative - Negative POCT U BLD (test code = 3257) . Negative - Negative POCT U COLOR (test code = 3266) . POCT U APPEAR (test code = 3267) . Lab Interpretation (test code = Abnormal 63439-5) [facility] URINALYSIS GLUCOSE & PROTEIN 2019-07-29 17:12:00 Test Item Value Reference Range Interpretation Comments POCT U PROT (test code = 3259) trace Negative - Negative POCT U GLU (test code = 3256) neg Negative - Negative Lab Interpretation (test code = Abnormal 34236-4) [facility] URINALYSIS GLUCOSE & PROTEIN 2019-07-29 17:12:00 Test Item Value Reference Range Interpretation Comments POCT U PROT (test code = 3259) trace Negative - Negative POCT U GLU (test code = 3256) neg Negative - Negative Lab Interpretation (test code = Abnormal 42918-0) [facility] URINALYSIS W SPECIFIC [id number] 17:16:00 Test Item Value Reference Range Interpretation Comments POCT U SP GRAV (test code = . 1.005-1.025 3255) POCT PH U (test code = 3254) . 5-8 POCT U LEUK EST (test code = . Negative - Negative 3263) POCT U NIT (test code = 3262) . Negative - Negative POCT U PROT (test code = 3259) trace Negative - Negative POCT U GLU (test code = 3256) negative Negative - Negative POCT U KETONE (test code = 3258) . Negative - Negative POCT U UROBILI (test code = . 0.2-1 3260) POCT U BILI (test code = 3261) . Negative - Negative POCT U BLD (test code = 3257) . Negative - Negative POCT U COLOR (test code = 3266) POCT U APPEAR (test code = 3267) [facility] URINALYSIS W SPECIFIC [id number] 17:16:00 Test Item Value Reference Range Interpretation Comments POCT U SP GRAV (test code = . 1.005-1.025 3255) POCT PH U (test code = 3254) . 5-8 POCT U LEUK EST (test code = . Negative - Negative 3263) POCT U NIT (test code = 3262) . Negative - Negative POCT U PROT (test code = 3259) trace Negative - Negative POCT U GLU (test code = 3256) negative Negative - Negative POCT U KETONE (test code = 3258) . Negative - Negative POCT U UROBILI (test code = . 0.2-1 3260) POCT U BILI (test code = 3261) . Negative - Negative POCT U BLD (test code = 3257) . Negative - Negative POCT U COLOR (test code = 3266) POCT U APPEAR (test code = 3267) [facility]CIFIC [id number] 17:16:00 Test Item Value Reference Range Interpretation Comments POCT U SP GRAV (test code = . 1.005-1.025 3255) POCT PH U (test code = 3254) . 5-8 POCT U LEUK EST (test code = . Negative - Negative 3263) POCT U NIT (test code = 3262) . Negative - Negative POCT U PROT (test code = 3259) trace Negative - Negative POCT U GLU (test code = 3256) negative Negative - Negative POCT U KETONE (test code = 3258) . Negative - Negative POCT U UROBILI (test code = . 0.2-1 3260) POCT U BILI (test code = 3261) . Negative - Negative POCT U BLD (test code = 3257) . Negative - Negative POCT U COLOR (test code = 3266) POCT U APPEAR (test code = 3267) [facility]
--- NOTE | 2021-06-23 10:10 | ER ---
Nurse's Notes [facility] Name: Karen Pérez Age: 25 yrs Sex: Female : 1995 Arrival Date: 06/23/2021 Time: 09:42 Bed 11 Private MD: Diagnosis: Acute nasopharyngitis [common cold] Presentation: 06/23 09:45 Chief complaint: Patient states: mild nasal congestion x 2 days.. Pt reports a recent ss exposure to covid. Coronavirus screen: Client presents with at least one sign or symptom that may indicate coronavirus-19. Ebola Screen: Patient denies exposure to infectious person. Patient denies travel to an Ebola-affected area in the 21 days before illness onset. Initial Sepsis Screen: Does the patient meet any 2 criteria? No. Patient's initial sepsis screen is negative. Does the patient have a suspected source of infection? No. Patient's initial sepsis screen is negative. Risk Assessment: Do you want to hurt yourself or someone else? Patient reports no desire to harm self or others. Onset of symptoms was June 21, 2021. 09:45 Method Of Arrival: Ambulatory ss 09:45 Acuity: ANNA 4 ss Historical: - Allergies: 09:47 NKDA; ss - Home Meds: 09:47 None [Active]; ss - PMHx: 09:47 Asthma; ss - PSHx: 09:47 section; R knee; ss - Immunization history:: Client reports receiving the 2nd dose of the Covid vaccine. - Social history:: Smoking status: Patient denies any tobacco usage or history of. Screenin:47 Abuse screen: Denies threats or abuse. Denies injuries from another. Nutritional ss screening: No deficits noted. Tuberculosis screening: Never had TB. Fall Risk None identified. Vital Signs: 09:45 BP 120 / 87; Pulse 90; Resp 14; Temp 97.4(TE); Pulse Ox 100% on R/A; Weight 97.52 kg; ss Height 5 ft. 6 in. (167.64 cm); Pain 0/10; 09:45 Body Mass Index 34.70 (97.52 kg, 167.64 cm) ss ED Course: 09:42 Patient arrived in ED. ds1 09:46 Triage completed. ss 09:47 Arm band placed on right wrist. ss 09:47 Patient has correct armband on for positive identification. Bed in low position. Call light in reach. 09:54 [facility] jr8 09:54 Carol Tena MD is Attending Physician. jr8 10:14 Jasmin Amador, RN is Primary Nurse. ss 10:14 No provider procedures requiring assistance completed. Patient did not have IV access ss during this emergency room visit. Administered Medications: No medications were administered Outcome: : Discharge ordered by . jr8 10:14 Discharged to home ambulatory. ss 10:14 Condition: good 10:14 Discharge instructions given to patient, Instructed on discharge instructions, follow up and referral plans. medication usage, Demonstrated understanding of instructions, follow-up care. 10:15 Patient left the ED. ss Signatures: Anabel Gamble ds1 Jasmin Amador, KEVIN RN Rich Navarro PA PA jr8
--- NOTE | 2021-06-23 10:15 | EDPHYS ---
Physician Documentation [facility] Name: Karen Pérez Age: 25 yrs Sex: Female : 1995 Arrival Date: 06/23/2021 Time: 09:42 Bed 11 Private MD: ED Physician Carol Tena HPI: 06/23 10:10 This 25 yrs old Black Female presents to ER via Ambulatory with complaints of jr8 Congestion. 10:10 Onset: The symptoms/episode began/occurred 2 day(s) ago. Associated signs and symptoms: jr8 The patient has no apparent associated signs or symptoms. Modifying factors: The patient symptoms are alleviated by nothing, the patient symptoms are aggravated by nothing. The patient has not experienced similar symptoms in the past. The patient has not recently seen a physician. 10:14 Patient stated that she was around someone at work that had covid. Started to have mild jr8 sinus congestion that has since resolved. Took antigen test that was negative but wanted to make sure she was correct . Historical: - Allergies: 09:47 NKDA; ss - Home Meds: 09:47 None [Active]; ss - PMHx: 09:47 Asthma; ss - PSHx: 09:47 section; R knee; ss - Immunization history:: Client reports receiving the 2nd dose of the Covid vaccine. - Social history:: Smoking status: Patient denies any tobacco usage or history of. ROS: 10:14 Constitutional: Negative for fever, chills, and weight loss, Respiratory: Negative for jr8 shortness of breath, cough, wheezing, and pleuritic chest pain, Abdomen/GI: Negative for abdominal pain, nausea, vomiting, diarrhea, and constipation, Neuro: Negative for headache, weakness, numbness, tingling, and seizure. 10:14 ENT: Positive for rhinorrhea, sinus congestion. 10:14 All other systems are negative. Exam: 10:14 Constitutional: This is a well developed, well nourished patient who is awake, alert, jr8 and in no acute distress. Eyes: Pupils equal round and reactive to light, extra-ocular motions intact. Lids and lashes normal. Conjunctiva and sclera are non-icteric and not injected. Cornea within normal limits. Periorbital areas with no swelling, redness, or edema. ENT: Nares patent. No nasal discharge, no septal abnormalities noted. Tympanic membranes are normal and external auditory canals are clear. Oropharynx with no redness, swelling, or masses, exudates, or evidence of obstruction, uvula midline. Mucous membranes moist. Neck: Trachea midline, no thyromegaly or masses palpated, and no cervical lymphadenopathy. Supple, full range of motion without nuchal rigidity, or vertebral point tenderness. No Meningismus. Cardiovascular: Regular rate and rhythm with a normal S1 and S2. No gallops, murmurs, or rubs. Normal PMI, no JVD. No pulse deficits. Respiratory: Lungs have equal breath sounds bilaterally, clear to auscultation and percussion. No rales, rhonchi or wheezes noted. No increased work of breathing, no retractions or nasal flaring. Abdomen/GI: Soft, non-tender, with normal bowel sounds. No distension or tympany. No guarding or rebound. No evidence of tenderness throughout. Skin: Warm, dry with normal turgor. Normal color with no rashes, no lesions, and no evidence of cellulitis. MS/ Extremity: Pulses equal, no cyanosis. Neurovascular intact. Full, normal range of motion. Neuro: Awake and alert, GCS 15, oriented to person, place, time, and situation. Motor strength 5/5 in all extremities. Sensory grossly intact. Vital Signs: 09:45 BP 120 / 87; Pulse 90; Resp 14; Temp 97.4(TE); Pulse Ox 100% on R/A; Weight 97.52 kg; ss Height 5 ft. 6 in. (167.64 cm); Pain 0/10; 09:45 Body Mass Index 34.70 (97.52 kg, 167.64 cm) ss MDM: 09:54 Patient medically screened. jr8 10:14 Data reviewed: vital signs, nurses notes, and as a result, I will discharge patient. jr8 Data interpreted: Pulse oximetry: on room air is 100 %. Interpretation: normal. Counseling: I had a detailed discussion with the patient and/or guardian regarding: the historical points, exam findings, and any diagnostic results supporting the discharge/admit diagnosis, the need for outpatient follow up, a family practitioner, to return to the emergency department if symptoms worsen or persist or if there are any questions or concerns that arise at home. ED course: Discussed with patient that she is asymptomatic at this time and without fever. Had negative antigen. Would not do PCR at this time. Can f/u with her PCP if needed or go to drug store for another test if she were to become symptomatic. Patient good with this plan . Administered Medications: No medications were administered Disposition Summary: 06/23/21 10:09 Discharge Ordered Location: Home jr8 Problem: new jr8 Symptoms: have improved jr8 Condition: Stable jr8 Diagnosis - Acute nasopharyngitis [common cold] jr8 Followup: jr8 - With: Private Physician - When: As needed - Reason: Recheck today's complaints, Continuance of care, Re-evaluation by your physician Discharge Instructions: - Discharge Summary Sheet jr8 - Upper Respiratory Infection, Adult jr8 Forms: - Medication Reconciliation Form jr8 - Thank You Letter jr8 - Antibiotic Education jr8 - Prescription Opioid Use jr8 Addendum: 06/25/2021 18:47 Co-signature as Attending Physician, Carol Tena MD PA/ELOCUTION TEACHER's history reviewed, m a2 patient interviewed, and examined. I agree with assessment and care plan and confirm the diagnosis (es) above. Signatures: Jasmin Amador, RN RN ss Rich Navarro PA PA jr8 Carol Tena MD MD ma2
[2021-06-23 10:19] VITALS: BP 120/87; TEMP 97.4; O2SAT 100
== END 2021-06-23 10:15 | disposition home or self-care (01) ==
LOC: ER 09:40
DX: J00 Acute nasopharyngitis [common cold] (principal)
CPT/HCPCS: 99281

== ENCOUNTER → 2023-07-14 | Emergency (ER) | payer SELFPAY ==
[~2023-07-14] MED LIST: CEFTRIAXONE 1000 MG/VIAL ONE; CODEINE 30MG/APAP 300MG TAB ONE; KETOROLAC 30 MG/ML INJ ONE; LIDOCAINE 1% MPF 2 ML AMPULE ONE; PROMETHAZINE 25 MG TABLET ONE
--- OUTSIDE RECORDS SUMMARY | 2023-07-14 21:17 | XMS REPORT | Continuity of Care Document ---
Author Name Unknown Address [address] [facility] [address] [place] [address] [facility] thconnect Address [address] [facility] [place] [address] Care Team Providers [facility] Attendant Name Role Phone BEVERLY LOPEZ Primary Care Physician Unava SARAI Saldana Attending Clinician Unavail able George Graham Attending Clinician Unava BEVERLY Omalley Attending Clinician Unavaileknan Valencia [facility] Nurse Attending Clinician Unava Beverly Omalley CNM Attending Clinician [phone] Doctor Unassigned, Booth Attending Clinician U navailSarai Stubbs Attending Clinician + GEORGE MONTERO Attending Clinician Unavailab bill ta Attending Clinician Unavailable Marta Rowley MD, April Attending Clinician + Lab, [facility] Attending Clinician Unavailable Marleny Orellana MD Attending Clinician + [phone] Bethel Palacios Attending Clinician [phone] , [facility] Room Attending Clinician Unavaila Sallie Peralta Attending Clinician [phone] [email or web address] Admitting Clinician Unavailable Marta Rowley MD, April Admitting Clinician + Payers Payer Name Policy Type Policy Number Effective Date Expirati on Date Source [facility] [employer] [facility] SANDY FISHER [id number] 2019 00:00:00 Problems Condition Name Condition Details Condition Category Status Onset Date Resolution Date Last Treatment Date Treating Clinician Comments Source Atypical squamous cells of undetermin ed significan ce (ASCUS) on Papanicola ou smear of cervix Atypical squamous cells of undetermin ed significan ce (ASCUS) on Papanicola ou smear of cervix Disease Active 2021-07 00:00: 00 Overview: Formattin g of this note might be different from the original. Repeat pap in 1 year [facility] Depo-Prove ra contracept kay status Depo-Prove ra contracept kay status Disease Active 2021-07 00:00: 00 [facility] Fungal skin infection Fungal skin infection Disease Active 2021-07 00:00: 00 [facility] BMI 40.0-44.9, adult BMI 40.0-44.9, adult Disease Active 2021-07 00:00: 00 [facility] Class 2 obesity with body mass index (BMI) of 39.0 to 39.9 in adult, unspecifie d obesity type, unspecifie d whether serious comorbidit y present Class 2 obesity with body mass index (BMI) of 39.0 to 39.9 in adult, unspecifie d obesity type, unspecifie d whether serious comorbidit y present Disease Active 6-16 00:00: 00 [facility] Morbid obesity Morbid obesity Disease Active 616 00:00: 00 [facility] Encounter for initial prescripti on of injectable contracept kay Encounter for initial prescripti on of injectable contracept kay Disease Active 3-24 00:00: 00 [facility] Screening examinatio n for STD (sexually transmitte d disease) Screening examinatio n for STD (sexually transmitte d disease) Disease Active 3-24 00:00: 00 [facility] Well woman exam Well woman exam Disease Active 3-03 00:00: 00 [facility] 39 weeks gestation of 39 weeks gestation of Disease Active 210 00:00: 00 [facility] GBS (group B Streptococ cus carrier), +RV culture, 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 [facility] Desires (vaginal after ) trial Desires (vaginal after ) trial Disease Active 2018-07 2 00:00: 00 [facility] Type A blood, Rh positive Type A blood, Rh positive Disease Active 2018-07 00:00: 00 [facility] Trichomoni asis Trichomoni asis Disease Active 12-11 00:00: 00 [facility] BMI 39.0-39.9, adult BMI 39.0-39.9, adult Disease Active 12-09 00:00: 00 [facility] Previous delivery affecting , antepartum Previous delivery affecting , antepartum Disease Active 12-09 00:00: 00 [facility] Sickle cell trait Sickle cell trait Disease Active 12-09 00:00: 00 [facility] of child of child Disease Active 12-09 00:00: 00 [facility] Obesity in Obesity in Disease Active 12-09 00:00: 00 [facility] Multiparit y Multiparit y Disease Active 12-09 00:00: 00 [facility] Supervisio n of high risk in third trimester Supervisio n of high risk in third trimester Disease Active 10-30 00:00: 00 [facility] Allergies, Adverse Reactions, Alerts Allergy Name Allergy Type Status Severity Reaction(s) Onset Date Inactive Date Treating Clinician Comments Source SHRIMP DRUG INGREDI Active Hives 10-24 00:00: 00 [facility] Shrimp Propensi ty to adverse reaction s Active Swelling 10-24 00:00: 00 [facility] NO KNOWN ALLERGIE S Drug Class Active [facility] Social History Social Habit Start Date Stop Date Quantity Comments Source ASSERTION 2018-11-24 00:00:00 [facility] Exposure to SARS-CoV-2 (event) 2022-06-23 00:00:00 2022-07-03 10:46:00 Not sure [facility] Alcohol intake 2022-05-08 00:00:00 2022-05-08 00:00:00 0 /d [facility] Tobacco use and exposure 2016-06-18 00:00:00 2016-06-18 00:00:00 Smokeless tobacco non-user [facility] Sex Assigned At 1995 00:00:00 1995 00:00:00 [facility] Smoking Status Start Date Stop Date Source Never smoked tobacco [facility] Medications Ordered Medication Name Filled Medication Name Start Date Stop Date Current Medication? Ordering Clinician Indication Dosage Frequency Signature (SIG) Comments Components Source azithromyci n 500 mg tablet 2021-07 00:00: 00 04-15 04:59 :00 No [id number] 1000mg Take 2 tablets by mouth in the morning for 1 day. [facility] azithromyci n 500 mg tablet 2021-07 00:00: 00 04-15 04:59 :00 No [id number] 1000mg Take 2 tablets by mouth in the morning for 1 day. [facility] medroxyPROG ESTERone (DEPO-PROVE RA) syringe 150 mg 2021-07 20:45: 00 03-12 20:44 :00 No [id number] 150mg [facility] medroxyPROG ESTERone (DEPO-PROVE RA) syringe 150 mg 2021-07 20:45: 00 03-12 20:44 :00 No [id number] 150mg [facility] medroxyPROG ESTERone (DEPO-PROVE RA) syringe 150 mg 2021-07 20:45: 00 03-12 20:44 :00 No [id number] 150mg 150 mg, Intramuscu lar, [id number], 4 doses, First dose on Sat04/10/22 at 1545, Last dose on Sat12/18/22 at 1545, Routine [facility] medroxyPROG ESTERone (DEPO-PROVE RA) syringe 150 mg 2021-07 0-11 20:45: 00 03-12 20:44 :00 No [id number] 150mg [facility] medroxyPROG ESTERone (DEPO-PROVE RA) syringe 150 mg 2021-07 0- 20:45: 00 03-12 20:44 :00 No [id number] 150mg 150 mg, Intramuscu lar, [id number], 4 doses, First dose on Sat04/10/22 at 1545, Last dose on Sat12/18/22 at 1545, Routine [facility] medroxyPROG ESTERone (DEPO-PROVE RA) syringe 150 mg 2021-07- 20:45: 00 03-12 20:44 :00 No [id number] 150mg [facility] medroxyPROG ESTERone (DEPO-PROVE RA) syringe 150 mg 2021-07 0-11 20:45: 00 03-12 20:44 :00 No [id number] 150mg [facility] medroxyPROG ESTERone (DEPO-PROVE RA) syringe 150 mg 2021-07 0-11 20:45: 00 03-12 20:44 :00 No [id number] 150mg [facility] medroxyPROG ESTERone (DEPO-PROVE RA) syringe 150 mg 2021-07 0-11 20:45: 00 03-12 20:44 :00 No [id number] 150mg [facility] medroxyPROG ESTERone (DEPO-PROVE RA) syringe 150 mg 2021-07 0-11 20:45: 00 03-12 20:44 :00 No [id number] 150mg [facility] medroxyPROG ESTERone (DEPO-PROVE RA) syringe 150 mg 2021-07 0-11 20:45: 00 03-12 20:44 :00 No [id number] 150mg [facility] fluconazole (DIFLUCAN) 150 mg tablet 2021-0711 00:00: 00 Yes [id number] 150mg Take 1 tablet by mouth weekly. [facility] fluconazole (DIFLUCAN) 150 mg tablet 2021-0711 00:00: 00 Yes [id number] 150mg Take 1 tablet by mouth weekly. [facility] fluconazole (DIFLUCAN) 150 mg tablet 2021-07 00:00: 00 Yes [id number] 150mg Take 1 tablet by mouth weekly. [facility] fluconazole (DIFLUCAN) 150 mg tablet 2021-07 00:00: 00 Yes [id number] 150mg Take 1 tablet by mouth weekly. [facility] fluconazole (DIFLUCAN) 150 mg tablet 2021-07 00:00: 00 Yes [id number] 150mg Take 1 tablet by mouth weekly. [facility] fluconazole (DIFLUCAN) 150 mg tablet 2021-07 00:00: 00 Yes [id number] 150mg Take 1 tablet by mouth weekly. [facility] fluconazole (DIFLUCAN) 150 mg tablet 2021-07 00:00: 00 Yes [id number] 150mg Take 1 tablet by mouth weekly. [facility] fluconazole (DIFLUCAN) 150 mg tablet 2021-07 00:00: 00 Yes [id number] 150mg Take 1 tablet by mouth weekly. [facility] fluconazole (DIFLUCAN) 150 mg tablet 2021-07 00:00: 00 Yes [id number] 150mg Take 1 tablet by mouth weekly. [facility] medroxyPROG ESTERone (DEPO-PROVE RA) injection 150 mg 01-16 19:02: 00 01-16 19:03 :00 No [id number] 150mg [facility] medroxyPROG ESTERone (DEPO-PROVE RA) injection 150 mg 01-16 19:02: 00 01-16 19:03 :00 No [id number] 150mg 150 mg, Intramuscu lar, ONCE, 1 dose, On Sat01/16/22 at 1415, Routine [facility] medroxyPROG ESTERone (DEPO-PROVE RA) injection 150 mg 2020-0 8-16 15:15: 00 01-15 15:14 :00 No [id number] 150mg [facility] medroxyPROG ESTERone (DEPO-PROVE RA) injection 150 mg 1-0 8-16 15:15: 00 01-15 15:14 :00 No [id number] 150mg 150 mg, Intramuscu lar, [id number], 4 doses, First dose on Sat02/13/21 at 1015, Last dose on Sat10/23/21 at 1015, Routine [facility] medroxyPROG ESTERone (DEPO-PROVE RA) injection 150 mg 2020-0 8-16 15:15: 00 01-15 15:14 :00 No [id number] 150mg [facility] medroxyPROG ESTERone (DEPO-PROVE RA) injection 150 mg 2020-0 8-16 15:15: 00 01-15 15:14 :00 No [id number] 150mg 150 mg, Intramuscu lar, [id number], 4 doses, First dose on Sat02/13/21 at 1015, Last dose on Sat10/23/21 at 1015, Routine [facility] medroxyPROG ESTERone (DEPO-PROVE RA) injection 150 mg 2020-0 8-16 15:15: 00 01-15 15:14 :00 No [id number] [facility] medroxyPROG ESTERone (DEPO-PROVE RA) injection 150 mg 1-0 8-16 15:15: 00 01-15 15:14 :00 No [id number] 150mg [facility] medroxyPROG ESTERone (DEPO-PROVE RA) injection 150 mg 1-0 8-16 15:15: 00 01-15 15:14 :00 No [id number] 150mg 150 mg, Intramuscu lar, [id number], 4 doses, First dose on Sat02/13/21 at 1015, Last dose on Sat10/23/21 at 1015, Routine [facility] medroxyPROG ESTERone (DEPO-PROVE RA) injection 150 mg 8-16 15:15: 00 01-15 15:14 :00 No [id number] 150mg [facility] medroxyPROG ESTERone (DEPO-PROVE RA) injection 150 mg 8-16 15:15: 00 01-15 15:14 :00 No [id number] 150mg [facility] medroxyPROG ESTERone (DEPO-PROVE RA) injection 150 mg 16 15:15: 00 01-15 15:14 :00 No [id number] 150mg 150 mg, Intramuscu lar, [id number], 4 doses, First dose on Sat02/13/21 at 1015, Last dose on Sat10/23/21 at 1015, Routine [facility] medroxyPROG ESTERone (DEPO-PROVE RA) injection 150 mg 816 15:15: 00 10-24 18:19 :00 No [id number] 150mg [facility] medroxyPROG ESTERone (DEPO-PROVE RA) injection 150 mg 16 15:15: 00 10-24 18:19 :00 No [id number] 150mg 150 mg, Intramuscu lar, [id number], 4 doses, First dose on Sat02/13/21 at 1015, Last dose on Sat10/23/21 at 1015, Routine [facility] medroxyPROG ESTERone (DEPO-PROVE RA) injection 150 mg 2019-0 6-16 20:45: 00 11-18 13:56 :00 No [id number] 150mg 150 mg, Intramuscu lar, [id number], 4 doses, First dose on Sat12/15/19 at 1545, Last dose on Sat08/23/20 at 1545, Routine [facility] medroxyPROG ESTERone (DEPO-PROVE RA) injection 150 mg 2019-0 6-16 20:45: 00 11-15 20:44 :00 No [id number] 150mg [facility] medroxyPROG ESTERone (DEPO-PROVE RA) injection 150 mg 2020-0 6-16 20:45: 00 11-15 20:44 :00 No [id number] 150mg 150 mg, Intramuscu lar, [id number], 4 doses, First dose on 12/15/19 at 1545, Last dose on 08/23/20 at 1545, Routine [facility] medroxyPROG ESTERone (DEPO-PROVE RA) injection 150 mg 2020-0 6-16 20:45: 00 11-15 20:44 :00 No [id number] 150mg [facility] medroxyPROG ESTERone (DEPO-PROVE RA) injection 150 mg 2020-0 6-16 20:45: 00 11-15 20:44 :00 No [id number] 150mg 150 mg, Intramuscu lar, [id number], 4 doses, First dose on e 12/15/19 at 1545, Last dose on e 08/23/20 at 1545, Routine [facility] medroxyPROG ESTERone (DEPO-PROVE RA) injection 150 mg 2020-0 6-16 20:45: 00 11-15 20:44 :00 No [id number] 150mg [facility] medroxyPROG ESTERone (DEPO-PROVE RA) injection 150 mg 2020-0 6-16 20:45: 00 11-15 20:44 :00 No [id number] 150mg [facility] medroxyPROG ESTERone (DEPO-PROVE RA) injection 150 mg 2020-0 6-16 20:45: 00 11-15 20:44 :00 No [id number] 150mg [facility] medroxyPROG ESTERone (DEPO-PROVE RA) injection 150 mg 2020-0 6-16 20:45: 00 11-15 20:44 :00 No [id number] 150mg [facility] medroxyPROG ESTERone (DEPO-PROVE RA) injection 150 mg 2020-0 6-16 20:45: 00 11-15 20:44 :00 No [id number] 150mg 150 mg, Intramuscu lar, [id number], 4 doses, First dose on e 12/15/19 at 1545, Last dose on Sat08/23/20 at 1545, Routine [facility] medroxyPROG ESTERone (DEPO-PROVE RA) injection 150 mg 2020-0 6-16 20:45: 00 11-15 20:44 :00 No [id number] 150mg [facility] medroxyPROG ESTERone (DEPO-PROVE RA) injection 150 mg 2020-0 6-16 20:45: 00 11-15 20:44 :00 No [id number] 150mg [facility] medroxyPROG ESTERone (DEPO-PROVE RA) injection 150 mg 2019-0 6-16 20:45: 00 11-15 20:44 :00 No [id number] 150mg 150 mg, Intramuscu lar, [id number], 4 doses, First dose on e 12/15/19 at 1545, Last dose on Sat08/23/20 at 1545, Routine [facility] medroxyPROG ESTERone (DEPO-PROVE RA) injection 150 mg 2019-0 3-31 18:45: 00 03-15 18:44 :00 No 150mg [facility] medroxyPROG ESTERone (DEPO-PROVE RA) injection 150 mg 2020-0 3-31 18:45: 00 03-15 18:44 :00 No 150mg 150 mg, Intramuscu lar, [id number], 2 doses, First dose on Sat09/29/19 at 1345, Last dose on Sat12/22/19 at 1345, Routine [facility] medroxyPROG ESTERone (DEPO-PROVE RA) injection 150 mg 2020-0 3-31 18:45: 00 03-15 18:44 :00 No 150mg [facility] medroxyPROG ESTERone (DEPO-PROVE RA) injection 150 mg 2020-0 3-31 18:45: 00 03-15 18:44 :00 No 150mg [facility] medroxyPROG ESTERone (DEPO-PROVE RA) injection 150 mg 3-31 18:45: 00 03-15 18:44 :00 No 150mg [facility] ferrous sulfate tablet 325 mg 08-11 23:00: 00 Yes 325mg 325 mg, Oral, TID MEALS, First dose on Sat08/11/19 at 1700, Until Discontinu ed, Routine [facility] foLIC acid (FOLATE) tablet 1 mg 08-11 22:45: 00 Yes 1mg 1 mg, Oral, DAILY, First dose on Sat08/11/19 at 1645, Until Discontinu ed, Routine [facility] ascorbic acid (vitamin C) (VITAMIN C) tablet 500 mg 08-11 22:45: 00 Yes 500mg 500 mg, Oral, DAILY, First dose on Sat08/11/19 at 1645, Until Discontinu ed, Routine [facility] lactated ringers IV infusion 500 mL 08-11 22:00: 00 08-11 21:34 :00 No 500mL at 999 mL/hr, 500 mL, Intravenou s, ONCE, 1 dose, Sat08/11/19 at 1600, Routine [facility] lactated ringers IV infusion 1,000 mL 08-11 12:45: 00 08-11 21:34 :00 No 1000mL at 125 mL/hr, 1,000 mL, IV Infusion, ONCE, 1 dose, Sat08/11/19 at 0645, Routine [facility] rho(D) immune globulin (RHOGAM) syringe 300 mcg 08-11 12:39: 52 Yes 300ug 300 mcg, Intramuscu lar, ONCE, For 1 dose, Conditiona l, Routine [facility] HYDROcodone -acetaminop hen (NORCO 5) 5-325 mg tablet 2 tablet 08-11 12:39: 47 Yes 2{tbl} 2 tablet, Oral, Q6HPRN, Starting Sat08/11/19 at 0639, Until Discontinu ed, Routine, Pain (scale 7-10), If uncontroll ed by Ibuprofen [facility] HYDROcodone -acetaminop hen (NORCO 5) 5-325 mg tablet 1 tablet 08-11 12:39: 47 Yes 1{tbl} 1 tablet, Oral, Q6HPRN, Starting Sat08/11/19 at 06, Until Discontinu ed, Routine, Pain (scale 4-6), If uncontroll ed by Ibuprofen [facility] ibuprofen (IBU) tablet 600 mg 08-11 12:39: 47 Yes 600mg 600 mg, Oral, Q6HPRN, Starting Sat08/11/19 at 638, Until Discontinu ed, Routine, Pain (scale 1-3) [facility] diphenhydrA MINE (BENADRYL) tablet 25 mg 08-11 12:39: 47 Yes 25mg 25 mg, Oral, Q6HPRN, Starting Sat08/11/19 at 638, Until Discontinu ed, Routine, Sleep, Itching [facility] ondansetron (ZOFRAN (PF)) injection 4 mg 08-11 12:39: 47 Yes 4mg 4 mg, Slow IV Push, Q8HPRN, Starting Sat08/11/19 at 638, Until Discontinu ed, Routine, Nausea and Vomiting (N/V) [facility] simethicone (GAS RELIEF (SIMETHICON E)) chewable tablet 160 mg 08-11 12:39: 47 Yes 160mg 160 mg, Oral, PC+HSPRN, Starting Sat08/11/19 at 0639, Until Discontinu ed, Routine, Gas [facility] docusate calcium (SURFAK) capsule 240 mg 08-11 12:39: 47 Yes 240mg 240 mg, Oral, QDAILYPRN, Starting Sat08/11/19 at 638, Until Discontinu ed, Routine, Constipati on [facility] magnesium hydroxide (MILK OF MAGNESIA) 400 mg/5 mL suspension 30 mL 08-11 12:39: 47 Yes 30mL 30 mL, Oral, QDAILYPRN, Starting Sat08/11/19 at 0639, Until Discontinu ed, Routine, Constipati on [facility] bisacodyL (DULCOLAX) suppository 10 mg 08-11 12:39: 46 Yes 10mg 10 mg, Rectal, QDAILYPRN, Starting Sat08/11/19 at 0639, Until Discontinu ed, Routine, Constipati on [facility] ondansetron (ZOFRAN (PF)) injection 4 mg 08-11 09:45: 00 08-11 09:41 :00 No 4mg 4 mg, Slow IV Push, ONCE, 1 dose, e 08/11/19 at 0345, Routine, PACU [facility] nalbuphine (NUBAIN) injection 5 mg 08-11 09:41: 18 Yes 5mg 5 mg, Intravenou s, PRN, 1 dose, Starting Sat08/11/19 at 0341, Until Discontinu ed, Routine, Itching, PACU [facility] ketorolac (TORADOL) injection 30 mg 08-11 09:41: 18 08-11 10:01 :00 No 30mg 30 mg, Slow IV Push, PRN, 1 dose, Starting Sat08/11/19 at 0341, Until Sat08/11/19 at 0401, Routine, Pain (scale 7-10), PACU
[facility] Restricted medication : PETROS MELISSA [facility] acetaminoph en (TYLENOL) tablet 650 mg 08-11 04:00: 00 08-11 05:10 :00 No 650mg 650 mg, Oral, ONCE, 1 dose, 08/10/19 at 2200, Routine [facility] lactated ringers IV infusion 1,000 mL 08-11 04:00: 00 08-11 12:39 :52 No 1000mL at 125 mL/hr, 1,000 mL, IV Infusion, CONTINUOUS , Starting 08/10/19 at 2200, Until Sat08/11/19 at 0639, Routine [facility] ceFAZolin in dextrose (iso-os) (ANCEF) 2 gram/100 mL Piggyback 2 g 08-11 03:44: 33 08-11 05:10 :00 No 2000mg 2 g (2,000 mg), IV Piggyback, O.R. HOLDING ONCE, 1 dose, Starting 08/10/19 at 2144, Until Discontinu ed, 100 mL
Reas on for Anti-Infec tive: Surgical Prophylaxi s
Surgi talha Prophylaxi s: [employer]
Duration of therapy: within 24 hours of surgery [facility] sodium citrate-cit halina acid (BICITRA) 500-334 mg/5 mL solution 30 mL 08-11 03:44: 33 08-11 05:10 :00 No 30mL 30 mL, Oral, PRE-PROCED URE ONCE, 1 dose, Starting 08/10/19 at 2144, Until 08/12/19 at 2359, Routine, Surgery/Pr ocedure [facility] simethicone 80 mg chewable tablet 08-11 00:00: 00 Yes [id number] 160mg Take 2 tablets by mouth after meals and at bedtime as needed for Gas. [facility] vitamin w/FA tablet 08-11 00:00: 00 Yes [id number] 1{tbl} Take 1 tablet by mouth daily. [facility] docusate calcium 240 mg capsule 08-11 00:00: 00 Yes [id number] 240mg Take 1 capsule by mouth once daily as needed for Constipati on. [facility] ferrous sulfate 325 mg (65 mg iron) tablet 08-11 00:00: 00 Yes [id number] 325mg Take 1 tablet by mouth 2 (two) times daily. [facility] ibuprofen 600 mg tablet 08-11 00:00: 00 Yes [id number] 600mg Take 1 tablet by mouth every 6 (six) hours as needed (Pain). Take with food or milk. [facility] HYDROcodone -acetaminop hen 5-325 mg tablet 08-11 00:00: 00 Yes [id number] 1{tbl} Take 1 tablet by mouth every 6 (six) hours as needed for Pain (scale 4-6). [facility] simethicone 80 mg chewable tablet 0 08-11 00:00: 00 Yes [id number] 160mg Take 2 tablets by mouth after meals and at bedtime as needed for Gas. [facility] vitamin w/FA tablet 0 08-11 00:00: 00 Yes [id number] 1{tbl} Take 1 tablet by mouth daily. [facility] docusate calcium 240 mg capsule 08-11 00:00: 00 Yes [id number] 240mg Take 1 capsule by mouth once daily as needed for Constipati on. [facility] ferrous sulfate 325 mg (65 mg iron) tablet 08-11 00:00: 00 Yes [id number] 325mg Take 1 tablet by mouth 2 (two) times daily. [facility] ibuprofen 600 mg tablet 08-11 00:00: 00 Yes [id number] 600mg Take 1 tablet by mouth every 6 (six) hours as needed (Pain). Take with food or milk. [facility] HYDROcodone -acetaminop hen 5-325 mg tablet 08-11 00:00: 00 Yes [id number] 1{tbl} Take 1 tablet by mouth every 6 (six) hours as needed for Pain (scale 4-6). [facility] simethicone 80 mg chewable tablet 08-11 00:00: 00 Yes [id number] 160mg Take 2 tablets by mouth after meals and at bedtime as needed for Gas. [facility] vitamin w/FA tablet 08-11 00:00: 00 Yes [id number] 1{tbl} Take 1 tablet by mouth daily. [facility] docusate calcium 240 mg capsule 08-11 00:00: 00 Yes [id number] 240mg Take 1 capsule by mouth once daily as needed for Constipati on. [facility] ferrous sulfate 325 mg (65 mg iron) tablet 08-11 00:00: 00 Yes [id number] 325mg Take 1 tablet by mouth 2 (two) times daily. [facility] ibuprofen 600 mg tablet 08-11 00:00: 00 Yes [id number] 600mg Take 1 tablet by mouth every 6 (six) hours as needed (Pain). Take with food or milk. [facility] HYDROcodone -acetaminop hen 5-325 mg tablet 08-11 00:00: 00 Yes [id number] 1{tbl} Take 1 tablet by mouth every 6 (six) hours as needed for Pain (scale 4-6). [facility] simethicone 80 mg chewable tablet 08-11 00:00: 00 Yes [id number] 160mg Take 2 tablets by mouth after meals and at bedtime as needed for Gas. [facility] vitamin w/FA tablet 08-11 00:00: 00 Yes [id number] 1{tbl} Take 1 tablet by mouth daily. [facility] docusate calcium 240 mg capsule 08-11 00:00: 00 Yes [id number] 240mg Take 1 capsule by mouth once daily as needed for Constipati on. [facility] ferrous sulfate 325 mg (65 mg iron) tablet 08-11 00:00: 00 Yes [id number] 325mg Take 1 tablet by mouth 2 (two) times daily. [facility] ibuprofen 600 mg tablet 08-11 00:00: 00 Yes [id number] 600mg Take 1 tablet by mouth every 6 (six) hours as needed (Pain). Take with food or milk. [facility] HYDROcodone -acetaminop hen 5-325 mg tablet 08-11 00:00: 00 Yes [id number] 1{tbl} Take 1 tablet by mouth every 6 (six) hours as needed for Pain (scale 4-6). [facility] simethicone 80 mg chewable tablet 08-11 00:00: 00 Yes [id number] 160mg Take 2 tablets by mouth after meals and at bedtime as needed for Gas. [facility] vitamin w/FA tablet 08-11 00:00: 00 Yes [id number] 1{tbl} Take 1 tablet by mouth daily. [facility] docusate calcium 240 mg capsule 08-11 00:00: 00 Yes [id number] 240mg Take 1 capsule by mouth once daily as needed for Constipati on. [facility] ferrous sulfate 325 mg (65 mg iron) tablet 08-11 00:00: 00 Yes [id number] 325mg Take 1 tablet by mouth 2 (two) times daily. [facility] ibuprofen 600 mg tablet 08-11 00:00: 00 Yes [id number] 600mg Take 1 tablet by mouth every 6 (six) hours as needed (Pain). Take with food or milk. [facility] HYDROcodone -acetaminop hen 5-325 mg tablet 08-11 00:00: 00 Yes [id number] 1{tbl} Take 1 tablet by mouth every 6 (six) hours as needed for Pain (scale 4-6). [facility] simethicone 80 mg chewable tablet 08-11 00:00: 00 Yes [id number] 160mg Take 2 tablets by mouth after meals and at bedtime as needed for Gas. [facility] vitamin w/FA tablet 08-11 00:00: 00 Yes [id number] 1{tbl} Take 1 tablet by mouth daily. [facility] docusate calcium 240 mg capsule 08-11 00:00: 00 Yes [id number] 240mg Take 1 capsule by mouth once daily as needed for Constipati on. [facility] ferrous sulfate 325 mg (65 mg iron) tablet 08-11 00:00: 00 Yes [id number] 325mg Take 1 tablet by mouth 2 (two) times daily. [facility] ibuprofen 600 mg tablet 08-11 00:00: 00 Yes [id number] 600mg Take 1 tablet by mouth every 6 (six) hours as needed (Pain). Take with food or milk. [facility] HYDROcodone -acetaminop hen 5-325 mg tablet 08-11 00:00: 00 Yes [id number] 1{tbl} Take 1 tablet by mouth every 6 (six) hours as needed for Pain (scale 4-6). [facility] simethicone 80 mg chewable tablet 08-11 00:00: 00 Yes [id number] 160mg Take 2 tablets by mouth after meals and at bedtime as needed for Gas. [facility] vitamin w/FA tablet 08-11 00:00: 00 Yes [id number] 1{tbl} Take 1 tablet by mouth daily. [facility] docusate calcium 240 mg capsule 08-11 00:00: 00 Yes [id number] 240mg Take 1 capsule by mouth once daily as needed for Constipati on. [facility] ferrous sulfate 325 mg (65 mg iron) tablet 08-11 00:00: 00 Yes [id number] 325mg Take 1 tablet by mouth 2 (two) times daily. [facility] ibuprofen 600 mg tablet 08-11 00:00: 00 Yes [id number] 600mg Take 1 tablet by mouth every 6 (six) hours as needed (Pain). Take with food or milk. [facility] HYDROcodone -acetaminop hen 5-325 mg tablet 08-11 00:00: 00 Yes [id number] 1{tbl} Take 1 tablet by mouth every 6 (six) hours as needed for Pain (scale 4-6). [facility] simethicone 80 mg chewable tablet 08-11 00:00: 00 Yes [id number] 160mg Take 2 tablets by mouth after meals and at bedtime as needed for Gas. [facility] vitamin w/FA tablet 08-11 00:00: 00 Yes [id number] 1{tbl} Take 1 tablet by mouth daily. [facility] docusate calcium 240 mg capsule 08-11 00:00: 00 Yes [id number] 240mg Take 1 capsule by mouth once daily as needed for Constipati on. [facility] ferrous sulfate 325 mg (65 mg iron) tablet 08-11 00:00: 00 Yes [id number] 325mg Take 1 tablet by mouth 2 (two) times daily. [facility] ibuprofen 600 mg tablet 00:00: 00 Yes [id number] 600mg Take 1 tablet by mouth every 6 (six) hours as needed (Pain). Take with food or milk. [facility] HYDROcodone -acetaminop hen 5-325 mg tablet 08-11 00:00: 00 Yes [id number] 1{tbl} Take 1 tablet by mouth every 6 (six) hours as needed for Pain (scale 4-6). [facility] simethicone 80 mg chewable tablet 08-11 00:00: 12-14 00:00 :00 No [id number] 160mg Take 2 tablets by mouth after meals and at bedtime as needed for Gas. [facility] vitamin w/FA tablet 08-11 00:00: 00 12-14 00:00 :00 No [id number] 1{tbl} Take 1 tablet by mouth daily. [facility] docusate calcium 240 mg capsule 08-11 00:00: 00 12-14 00:00 :00 No [id number] 240mg Take 1 capsule by mouth once daily as needed for Constipati on. [facility] ferrous sulfate 325 mg (65 mg iron) tablet 08-11 00:00: 12-14 00:00 :00 No [id number] 325mg Take 1 tablet by mouth 2 (two) times daily. [facility] ibuprofen 600 mg tablet 08-11 00:00: 00 12-14 00:00 :00 No [id number] 600mg Take 1 tablet by mouth every 6 (six) hours as needed (Pain). Take with food or milk. [facility] HYDROcodone -acetaminop hen 5-325 mg tablet 08-11 00:00: 00 12-14 00:00 :00 No [id number] 1{tbl} Take 1 tablet by mouth every 6 (six) hours as needed for Pain (scale 4-6). [facility] simethicone 80 mg chewable tablet 08-11 00:00: 00 12-14 00:00 :00 No [id number] 160mg Take 2 tablets by mouth after meals and at bedtime as needed for Gas. [facility] vitamin w/FA tablet 2- 00:00: 00 12-14 00:00 :00 No [id number] 1{tbl} Take 1 tablet by mouth daily. [facility] docusate calcium 240 mg capsule 2- 00:00: 12-14 00:00 :00 No [id number] 240mg Take 1 capsule by mouth once daily as needed for Constipati on. [facility] ferrous sulfate 325 mg (65 mg iron) tablet 08-11 00:00: 00 12-14 00:00 :00 No [id number] 325mg Take 1 tablet by mouth 2 (two) times daily. [facility] ibuprofen 600 mg tablet 2 00:00: 12-14 00:00 :00 No [id number] 600mg Take 1 tablet by mouth every 6 (six) hours as needed (Pain). Take with food or milk. [facility] HYDROcodone -acetaminop hen 5-325 mg tablet 08-11 00:00: 00 12-14 00:00 :00 No [id number] 1{tbl} Take 1 tablet by mouth every 6 (six) hours as needed for Pain (scale 4-6). [facility] ferrous sulfate 325 mg (65 mg iron) tablet 07-24 00:00: 00 Yes [id number] 325mg Take 1 tablet by mouth 2 (two) times daily. [facility] ascorbic acid, vitamin C, 500 mg tablet 07-24 00:00: 00 Yes [id number] 500mg Take 1 tablet by mouth 3 (three) times daily. [facility] ferrous sulfate 325 mg (65 mg iron) tablet 07-24 00:00: 00 Yes [id number] 325mg Take 1 tablet by mouth 2 (two) times daily. [facility] ascorbic acid, vitamin C, 500 mg tablet 07-24 00:00: 00 Yes [id number] 500mg Take 1 tablet by mouth 3 (three) times daily. [facility] ferrous sulfate 325 mg (65 mg iron) tablet 07-24 00:00: 00 Yes [id number] 325mg Take 1 tablet by mouth 2 (two) times daily. [facility] ascorbic acid, vitamin C, 500 mg tablet 07-24 00:00: 00 Yes [id number] 500mg Take 1 tablet by mouth 3 (three) times daily. [facility] ferrous sulfate 325 mg (65 mg iron) tablet 07-24 00:00: 00 Yes [id number] 325mg Take 1 tablet by mouth 2 (two) times daily. [facility] ascorbic acid, vitamin C, 500 mg tablet 07-24 00:00: 00 Yes [id number] 500mg Take 1 tablet by mouth 3 (three) times daily. [facility] ferrous sulfate 325 mg (65 mg iron) tablet 07-24 00:00: 00 Yes [id number] 325mg Take 1 tablet by mouth 2 (two) times daily. [facility] ascorbic acid, vitamin C, 500 mg tablet 07-24 00:00: 00 Yes [id number] 500mg Take 1 tablet by mouth 3 (three) times daily. [facility] ferrous sulfate 325 mg (65 mg iron) tablet 07-24 00:00: 00 Yes [id number] 325mg Take 1 tablet by mouth 2 (two) times daily. [facility] ascorbic acid, vitamin C, 500 mg tablet 07-24 00:00: 00 Yes [id number] 500mg Take 1 tablet by mouth 3 (three) times daily. [facility] ferrous sulfate 325 mg (65 mg iron) tablet 07-24 00:00: 00 Yes [id number] 325mg Take 1 tablet by mouth 2 (two) times daily. [facility] ascorbic acid, vitamin C, 500 mg tablet 07-24 00:00: 00 Yes [id number] 500mg Take 1 tablet by mouth 3 (three) times daily. [facility] ferrous sulfate 325 mg (65 mg iron) tablet 07-24 00:00: 00 Yes [id number] 325mg Take 1 tablet by mouth 2 (two) times daily. [facility] ascorbic acid, vitamin C, 500 mg tablet 0 24 00:00: 00 Yes [id number] 500mg Take 1 tablet by mouth 3 (three) times daily. [facility] ferrous sulfate 325 mg (65 mg iron) tablet 0 07-24 00:00: 00 Yes [id number] 325mg Take 1 tablet by mouth 2 (two) times daily. [facility] ascorbic acid, vitamin C, 500 mg tablet 0 07-24 00:00: 00 Yes [id number] 500mg Take 1 tablet by mouth 3 (three) times daily. [facility] ferrous sulfate 325 mg (65 mg iron) tablet 0 07-24 00:00: 00 Yes [id number] 325mg Take 1 tablet by mouth 2 (two) times daily. [facility] ascorbic acid, vitamin C, 500 mg tablet 0 07-24 00:00: 00 Yes [id number] 500mg Take 1 tablet by mouth 3 (three) times daily. [facility] ferrous sulfate 325 mg (65 mg iron) tablet 0 07-24 00:00: 00 Yes [id number] 325mg Take 1 tablet by mouth 2 (two) times daily. [facility] ascorbic acid, vitamin C, 500 mg tablet 07-24 00:00: 00 Yes [id number] 500mg Take 1 tablet by mouth 3 (three) times daily. [facility] ferrous sulfate 325 mg (65 mg iron) tablet 0 07-24 00:00: 00 Yes [id number] 325mg Take 1 tablet by mouth 2 (two) times daily. [facility] ascorbic acid, vitamin C, 500 mg tablet 0 24 00:00: 00 Yes [id number] 500mg Take 1 tablet by mouth 3 (three) times daily. [facility] ferrous sulfate 325 mg (65 mg iron) tablet 2019-0 24 00:00: 00 Yes [id number] 325mg Take 1 tablet by mouth 2 (two) times daily. [facility] ascorbic acid, vitamin C, 500 mg tablet 07-24 00:00: 00 Yes [id number] 500mg Take 1 tablet by mouth 3 (three) times daily. [facility] ferrous sulfate 325 mg (65 mg iron) tablet 07-24 00:00: 00 Yes [id number] 325mg Take 1 tablet by mouth 2 (two) times daily. [facility] ascorbic acid, vitamin C, 500 mg tablet 07-24 00:00: 00 Yes [id number] 500mg Take 1 tablet by mouth 3 (three) times daily. [facility] ferrous sulfate 325 mg (65 mg iron) tablet 07-24 00:00: 00 Yes [id number] 325mg Take 1 tablet by mouth 2 (two) times daily. [facility] ascorbic acid, vitamin C, 500 mg tablet 07-24 00:00: 00 Yes [id number] 500mg Take 1 tablet by mouth 3 (three) times daily. [facility] ferrous sulfate 325 mg (65 mg iron) tablet 07-24 00:00: 00 Yes [id number] 325mg Take 1 tablet by mouth 2 (two) times daily. [facility] ascorbic acid, vitamin C, 500 mg tablet 07-24 00:00: 00 Yes [id number] 500mg Take 1 tablet by mouth 3 (three) times daily. [facility] ferrous sulfate 325 mg (65 mg iron) tablet 07-24 00:00: 00 12-14 00:00 :00 No [id number] 325mg Take 1 tablet by mouth 2 (two) times daily. [facility] ascorbic acid, vitamin C, 500 mg tablet 07-24 00:00: 00 12-14 00:00 :00 No [id number] 500mg Take 1 tablet by mouth 3 (three) times daily. [facility] ferrous sulfate 325 mg (65 mg iron) tablet 07-24 00:00: 00 12-14 00:00 :00 No [id number] 325mg Take 1 tablet by mouth 2 (two) times daily. [facility] ascorbic acid, vitamin C, 500 mg tablet 07-24 00:00: 00 12-14 00:00 :00 No [id number] 500mg Take 1 tablet by mouth 3 (three) times daily. [facility] Iron, Cbn & Gluc-FA-B12 -C-DSS (FERRALET 90 DUAL-IRON DELIVERY) 90-1-12-50 mg-mg-mcg-m g per tablet 08-19 00:00: 00 Yes 1{tbl} Take 1 tablet by mouth daily. [facility] Iron, Cbn & Gluc-FA-B12 -C-DSS (FERRALET 90 DUAL-IRON DELIVERY) 90-1-12-50 mg-mg-mcg-m g per tablet 08-19 00:00: 00 Yes 1{tbl} Take 1 tablet by mouth daily. [facility] Iron, Cbn & Gluc-FA-B12 -C-DSS (FERRALET 90 DUAL-IRON DELIVERY) 90-1-12-50 mg-mg-mcg-m g per tablet 08-19 00:00: 00 Yes 1{tbl} Take 1 tablet by mouth daily. [facility] Iron, Cbn & Gluc-FA-B12 -C-DSS (FERRALET 90 DUAL-IRON DELIVERY) 90-1-12-50 mg-mg-mcg-m g per tablet 08-19 00:00: 00 Yes 1{tbl} Take 1 tablet by mouth daily. [facility] Iron, Cbn & Gluc-FA-B12 -C-DSS (FERRALET 90 DUAL-IRON DELIVERY) 90-1-12-50 mg-mg-mcg-m g per tablet 08-19 00:00: 00 Yes 1{tbl} Take 1 tablet by mouth daily. [facility] Iron, Cbn & Gluc-FA-B12 -C-DSS (FERRALET 90 DUAL-IRON DELIVERY) 90-1-12-50 mg-mg-mcg-m g per tablet 08-19 00:00: 00 Yes 1{tbl} Take 1 tablet by mouth daily. [facility] Iron, Cbn & Gluc-FA-B12 -C-DSS (FERRALET 90 DUAL-IRON DELIVERY) 90-1-12-50 mg-mg-mcg-m g per tablet 08-19 00:00: 00 Yes 1{tbl} Take 1 tablet by mouth daily. [facility] Iron, Cbn & Gluc-FA-B12 -C-DSS (FERRALET 90 DUAL-IRON DELIVERY) 90-1-12-50 mg-mg-mcg-m g per tablet 08-19 00:00: 00 Yes 1{tbl} Take 1 tablet by mouth daily. [facility] Iron, Cbn & Gluc-FA-B12 -C-DSS (FERRALET 90 DUAL-IRON DELIVERY) 90-1-12-50 mg-mg-mcg-m g per tablet 08-19 00:00: 00 Yes 1{tbl} Take 1 tablet by mouth daily. [facility] Iron, Cbn & Gluc-FA-B12 -C-DSS (FERRALET 90 DUAL-IRON DELIVERY) 90-1-12-50 mg-mg-mcg-m g per tablet 08-19 00:00: 00 Yes 1{tbl} Take 1 tablet by mouth daily. [facility] Iron, Cbn & Gluc-FA-B12 -C-DSS (FERRALET 90 DUAL-IRON DELIVERY) 90-1-12-50 mg-mg-mcg-m g per tablet 08-19 00:00: 00 Yes 1{tbl} Take 1 tablet by mouth daily. [facility] Iron, Cbn & Gluc-FA-B12 -C-DSS (FERRALET 90 DUAL-IRON DELIVERY) 90-1-12-50 mg-mg-mcg-m g per tablet 08-19 00:00: 00 Yes 1{tbl} Take 1 tablet by mouth daily. [facility] Iron, Cbn & Gluc-FA-B12 -C-DSS (FERRALET 90 DUAL-IRON DELIVERY) 90-1-12-50 mg-mg-mcg-m g per tablet 08-19 00:00: 00 Yes 1{tbl} Take 1 tablet by mouth daily. [facility] Iron, Cbn & Gluc-FA-B12 -C-DSS (FERRALET 90 DUAL-IRON DELIVERY) 90-1-12-50 mg-mg-mcg-m g per tablet 08-19 00:00: 00 Yes 1{tbl} Take 1 tablet by mouth daily. [facility] Iron, Cbn & Gluc-FA-B12 -C-DSS (FERRALET 90 DUAL-IRON DELIVERY) 90-1-12-50 mg-mg-mcg-m g per tablet 08-19 00:00: 00 Yes 1{tbl} Take 1 tablet by mouth daily. [facility] Iron, Cbn & Gluc-FA-B12 -C-DSS (FERRALET 90 DUAL-IRON DELIVERY) 90-1-12-50 mg-mg-mcg-m g per tablet 08-19 00:00: 00 Yes 1{tbl} Take 1 tablet by mouth daily. [facility] Iron, Cbn & Gluc-FA-B12 -C-DSS (FERRALET 90 DUAL-IRON DELIVERY) 90-1-12-50 mg-mg-mcg-m g per tablet 08-19 00:00: 00 Yes 1{tbl} Take 1 tablet by mouth daily. [facility] Iron, Cbn & Gluc-FA-B12 -C-DSS (FERRALET 90 DUAL-IRON DELIVERY) 90-1-12-50 mg-mg-mcg-m g per tablet 08-19 00:00: 00 Yes 1{tbl} Take 1 tablet by mouth daily. [facility] Iron, Cbn & Gluc-FA-B12 -C-DSS (FERRALET 90 DUAL-IRON DELIVERY) 90-1-12-50 mg-mg-mcg-m g per tablet 08-19 00:00: 00 Yes 1{tbl} Take 1 tablet by mouth daily. [facility] Iron, Cbn & Gluc-FA-B12 -C-DSS (FERRALET 90 DUAL-IRON DELIVERY) 90-1-12-50 mg-mg-mcg-m g per tablet 08-19 00:00: 00 Yes 1{tbl} Take 1 tablet by mouth daily. [facility] Iron, Cbn & Gluc-FA-B12 -C-DSS (FERRALET 90 DUAL-IRON DELIVERY) 90-1-12-50 mg-mg-mcg-m g per tablet 08-19 00:00: 00 Yes 1{tbl} Take 1 tablet by mouth daily. [facility] Iron, Cbn & Gluc-FA-B12 -C-DSS (FERRALET 90 DUAL-IRON DELIVERY) 90-1-12-50 mg-mg-mcg-m g per tablet 08-19 00:00: 00 Yes 1{tbl} Take 1 tablet by mouth daily. [facility] Iron, Cbn & Gluc-FA-B12 -C-DSS (FERRALET 90 DUAL-IRON DELIVERY) 90-1-12-50 mg-mg-mcg-m g per tablet 08-19 00:00: 00 Yes 1{tbl} Take 1 tablet by mouth daily. [facility] Iron, Cbn & Gluc-FA-B12 -C-DSS (FERRALET 90 DUAL-IRON DELIVERY) 90-1-12-50 mg-mg-mcg-m g per tablet 08-19 00:00: 00 12-14 00:00 :00 No 1{tbl} Take 1 tablet by mouth daily. [facility] Iron, Cbn & Gluc-FA-B12 -C-DSS (FERRALET 90 DUAL-IRON DELIVERY) 90-1-12-50 mg-mg-mcg-m g per tablet 08-19 00:00: 00 12-14 00:00 :00 No 1{tbl} Take 1 tablet by mouth daily. [facility] No known medications No Un y[facility]ny [facility] Vital Signs Vital Name Observation Time Observation Value Comments S lisa Systolic blood pressure 2022-07-03 16:47:00 124 mm[Hg] [facility] Diastolic blood pressure 2022-07-03 16:47:00 71 mm[Hg] [facility] Heart rate 2022-07-03 16:47:00 81 /min Jer[facility] Body temperature 2022-07-03 16:47:00 36.72 Irina [facility] Respiratory rate 2022-07-03 16:47:00 18 /min [facility] Body weight 2022-07-03 16:47:00 119.205 kg [facility] BMI 2022-07-03 16:47:00 42.42 kg/m2 [facility] Systolic blood pressure 2022-04-10 19:49:00 128 mm[Hg] [facility] Diastolic blood pressure 2022-04-10 19:49:00 78 mm[Hg] [facility] Heart rate 2022-04-10 19:49:00 86 /min Unive [facility] Body temperature 2022-04-10 19:49:00 36.22 Irina [facility] Respiratory rate 2022-04-10 19:49:00 17 /min [facility] Body height 2022-04-10 19:49:00 167.6 cm [facility] Body weight 2022-04-10 19:49:00 117.255 kg [facility] BMI 2022-04-10 19:49:00 41.72 kg/m2 [facility] Systolic blood pressure 2022-01-16 18:45:00 122 mm[Hg] [facility] Diastolic blood pressure 2022-01-16 18:45:00 75 mm[Hg] [facility] Heart rate 2022-01-16 18:45:00 75 /min Unive [facility] Body temperature 2022-01-16 18:45:00 36.67 Irina [facility] Respiratory rate 2022-01-16 18:45:00 20 /min [facility] Body height 2022-01-16 18:45:00 167.6 cm [facility] Body weight 2022-01-16 18:45:00 115.032 kg [facility] BMI 2022-01-16 18:45:00 40.93 kg/m2 [facility] Systolic blood pressure 2021-10-24 18:07:00 128 mm[Hg] [facility] Diastolic blood pressure 2021-10-24 18:07:00 79 mm[Hg] [facility] Heart rate 2021-10-24 18:07:00 66 /min [facility] Body temperature 2021-10-24 18:07:00 36.33 Irina [facility] Respiratory rate 2021-10-24 18:07:00 18 /min [facility] Body height 2021-10-24 18:07:00 167.6 cm [facility] Body weight 2021-10-24 18:07:00 115.44 kg [facility] BMI 2021-10-24 18:07:00 41.08 kg/m2 [facility] Systolic blood pressure 2021-08-01 21:35:00 134 mm[Hg] [facility] Diastolic blood pressure 2021-08-01 21:35:00 78 mm[Hg] [facility] Heart rate 2021-08-01 21:35:00 90 /min [facility] Body temperature 2021-08-01 21:35:00 35.89 Irina [facility] Respiratory rate 2021-08-01 21:35:00 16 /min [facility] Body height 2021-08-01 21:35:00 167.6 cm [facility] Body weight 2021-08-01 21:35:00 111.585 kg [facility] BMI 2021-08-01 21:35:00 39.71 kg/m2 [facility] Systolic blood pressure 2021-05-08 21:08:00 131 mm[Hg] [facility] Diastolic blood pressure 2021-05-08 21:08:00 78 mm[Hg] [facility] Heart rate 2021-05-08 21:08:00 109 /min Unive [facility] Body temperature 2021-05-08 21:08:00 35.17 Irina [facility] Respiratory rate 2021-05-08 21:08:00 18 /min [facility] Body height 2021-05-08 21:08:00 167.6 cm [facility] Body weight 2021-05-08 21:08:00 112.129 kg [facility] BMI 2021-05-08 21:08:00 39.90 kg/m2 [facility] Systolic blood pressure 2021-02-13 14:45:00 122 mm[Hg] [facility] Diastolic blood pressure 2021-02-13 14:45:00 88 mm[Hg] [facility] Heart rate 2021-02-13 14:45:00 78 /min [facility] Body temperature 2021-02-13 14:45:00 36.89 Irina [facility] Respiratory rate 2021-02-13 14:45:00 16 /min [facility] Body height 2021-02-13 14:45:00 167.6 cm [facility] Body weight 2021-02-13 14:45:00 111.131 kg [facility] BMI 2021-02-13 14:45:00 39.54 kg/m2 [facility] Systolic blood pressure 2020-11-18 13:55:00 110 mm[Hg] [facility] Diastolic blood pressure 2020-11-18 13:55:00 72 mm[Hg] [facility] Heart rate 2020-11-18 13:55:00 84 /min Unive [facility] Body temperature 2020-11-18 13:55:00 36.89 Irina [facility] Respiratory rate 2020-11-18 13:55:00 16 /min [facility] Body height 2020-11-18 13:55:00 167.6 cm [facility] Body weight 2020-11-18 13:55:00 111.131 kg [facility] BMI 2020-11-18 13:55:00 39.54 kg/m2 [facility] Systolic blood pressure 2020-08-26 21:59:00 122 mm[Hg] [facility] Diastolic blood pressure 2020-08-26 21:59:00 83 mm[Hg] [facility] Heart rate 2020-08-26 21:59:00 90 /min [facility] Body temperature 2020-08-26 21:59:00 37 Irina [facility] Respiratory rate 2020-08-26 21:59:00 16 /min [facility] Body height 2020-08-26 21:59:00 167.6 [facility] 2020-08-26 21:59:00 114.624 kg [facility] 2020-08-26 21:59:00 40.79 kg/m2 [facility] Systolic blood pressure 2020-05-31 21:48:00 135 mm[Hg] [facility] Diastolic blood pressure 2020-05-31 21:48:00 83 mm[Hg] [facility] Heart rate 2020-05-31 21:48:00 83 /min [facility] temperature 2020-05-31 21:48:00 36.56 Irina [facility] Respiratory rate 2020-05-31 21:48:00 16 /min [facility] Body height 2020-05-31 21:48:00 167.6 cm [facility] Body weight 2020-05-31 21:48:00 116.234 kg [facility] BMI 2020-05-31 21:48:00 41.36 kg/m2 [facility] Systolic blood pressure 2020-05-04 20:06:00 121 mm[Hg] [facility] Diastolic blood pressure 2020-05-04 20:06:00 79 mm[Hg] [facility] Heart rate 2020-05-04 20:06:00 80 /min [facility] temperature 2020-05-04 20:06:00 36.67 Irina [facility] Respiratory rate 2020-05-04 20:06:00 16 /min [facility] Body height 2020-05-04 20:06:00 167.6 cm [facility] weight 2020-05-04 20:06:00 113.513 kg [facility] BMI 2020-05-04 20:06:00 40.39 kg/m2 [facility] Systolic blood pressure 2020-04-19 15:37:00 119 mm[Hg] [facility] Diastolic blood pressure 2020-04-19 15:37:00 83 mm[Hg] [facility] Heart rate 2020-04-19 15:37:00 67 /min [facility] Body temperature 2020-04-19 15:37:00 36.67 Irina [facility] Respiratory rate 2020-04-19 15:37:00 16 /min [facility] Body height 2020-04-19 15:37:00 167.6 cm [facility] weight 2020-04-19 15:37:00 114.669 kg [facility] 2020-04-19 15:37:00 40.80 kg/m2 [facility] Systolic blood pressure 2019-12-15 20:10:00 127 mm[Hg] [facility] Diastolic blood pressure 2019-12-15 20:10:00 84 mm[Hg] [facility] Heart rate 2019-12-15 20:10:00 72 /[facility] 2019-12-15 20:10:00 36.78 Irina [facility] Respiratory rate 2019-12-15 20:10:00 16 /min [facility] Body height 2019-12-15 20:10:00 167.6 cm [facility] Body weight 2019-12-15 20:10:00 109.969 kg [facility] BMI 2019-12-15 20:10:00 39.13 kg/m2 [facility] Body weight 2019-09-29 18:26:00 106.765 kg [facility] BMI 2019-09-29 18:26:00 37.99 kg/m2 [facility] Systolic blood pressure 2019-09-01 15:29:00 121 mm[Hg] [facility] Diastolic blood pressure 2019-09-01 15:29:00 69 mm[Hg] [facility] Heart rate 2019-09-01 15:29:00 76 /min [facility] temperature 2019-09-01 15:29:00 36.11 Irina [facility] Respiratory rate 2019-09-01 15:29:00 16 /min [facility] Body height 2019-09-01 15:29:00 167.6 cm [facility] weight 2019-09-01 15:29:00 106.765 kg [facility] BMI 2019-09-01 15:29:00 37.99 kg/m2 [facility] Systolic blood pressure 2019-08-18 20:17:00 132 mm[Hg] [facility] Diastolic blood pressure 2019-08-18 20:17:00 82 mm[Hg] [facility] Heart rate 2019-08-18 20:17:00 72 /min Unive [facility] Body temperature 2019-08-18 20:17:00 36.11 Irina [facility] Respiratory rate 2019-08-18 20:17:00 16 /min [facility] Body height 2019-08-18 20:17:00 167.6 cm [facility] Body weight 2019-08-18 20:17:00 107.191 kg [facility] BMI 2019-08-18 20:17:00 38.14 kg/m2 [facility] Systolic blood pressure 2019-08-13 14:00:00 110 mm[Hg] [facility] Diastolic blood pressure 2019-08-13 14:00:00 50 mm[Hg] [facility] Heart rate 2019-08-13 14:00:00 60 /[facility] Body temperature 2019-08-13 14:00:00 36.5 Irina [facility] Respiratory rate 2019-08-13 14:00:00 17 /min [facility] Oxygen saturation in Arterial blood by Pulse oximetry 2019-08-13 14:00:00 97 /min [facility] Systolic blood pressure 2019-08-10 21:02:00 117 mm[Hg] [facility] Diastolic blood pressure 2019-08-10 21:02:00 78 mm[Hg] [facility] Heart rate 2019-08-10 21:02:00 96 /min [facility] Body temperature 2019-08-10 21:02:00 36.61 Irina [facility] Respiratory rate 2019-08-10 21:02:00 16 /min [facility] Body height 2019-08-10 21:02:00 167.6 cm [facility] Body weight 2019-08-10 21:02:00 115.724 kg [facility] BMI 2019-08-10 21:02:00 41.18 kg/m2 [facility] Systolic blood pressure 2019-08-05 19:15:00 127 mm[Hg] [facility] Diastolic blood pressure 2019-08-05 19:15:00 72 mm[Hg] [facility] Heart rate 2019-08-05 19:15:00 84 /min Unive [facility] Body temperature 2019-08-05 19:15:00 35.89 Irina [facility] Respiratory rate 2019-08-05 19:15:00 16 /min [facility] Body height 2019-08-05 19:15:00 167.6 cm [facility] Body weight 2019-08-05 19:15:00 117.652 kg [facility] BMI 2019-08-05 19:15:00 41.86 kg/m2 [facility] Systolic blood pressure 2019-07-29 17:08:00 134 mm[Hg] [facility] Diastolic blood pressure 2019-07-29 17:08:00 75 mm[Hg] [facility] Heart rate 2019-07-29 17:08:00 95 /min Unive [facility] Body temperature 2019-07-29 17:08:00 36.61 Irina [facility] Respiratory rate 2019-07-29 17:08:00 16 /min [facility] Body height 2019-07-29 17:08:00 167.6 cm [facility] Body weight 2019-07-29 17:08:00 114.817 kg [facility] BMI 2019-07-29 17:08:00 40.86 kg/m2 [facility] Systolic blood pressure 2019-07-22 17:07:00 126 mm[Hg] [facility] Diastolic blood pressure 2019-07-22 17:07:00 80 mm[Hg] [facility] Heart rate 2019-07-22 17:07:00 96 /min Unive [facility] Body temperature 2019-07-22 17:07:00 36.33 Irina [facility] Respiratory rate 2019-07-22 17:07:00 16 /min [facility] Body height 2019-07-22 17:07:00 167.6 cm [facility] Body weight 2019-07-22 17:07:00 114.335 kg [facility] BMI 2019-07-22 17:07:00 40.68 kg/m2 [facility] Procedures Procedure Date / Time Performed Performing Clinician Source CONSENT/REFUSAL FOR DIAGNOSIS AND TREATMENT 2022-07-03 16:20:31 Doctor Unassigned, Booth [facility] ASSIGNMENT OF BENEFITS 2022-07-03 16:20:17 Docto r Unassigned, Booth [facility] PAP SMEAR-LIQUID BASED-CP 2022-04-10 21:09:00 George Montero [facility] CONSENT/REFUSAL FOR DIAGNOSIS AND TREATMENT 2021-06-23 20:42:46 Doctor Unassigned, [facility] ASSIGNMENT OF BENEFITS 2021-05-08 21:04:43 Blair osorio Unassigned, [facility] POCT TEST 2020-05-31 21:54:00 Vik Gutierrez [facility] POCT TEST 2020-05-04 20:08:00 Hudson Montero [facility] POCT TEST 2020-04-19 00:00:00 Hudson Montero [facility] POCT TEST 2019-12-15 20:35:00 Hudson Montero [facility] ASSIGNMENT OF BENEFITS 2019-12-15 19:29:32 Blair osorio Unassigned, [facility] CBC WITH DIFFERENTIAL 2019-08-11 20:47:00 Paco Gan [facility] VENOUS CORD GAS 2019-08-11 08:42:00 Brenton Stephens [facility] SECTION 2019-08-11 07:31:00 April Tobar [facility] CBC WITH DIFFERENTIAL 2019-08-11 04:46:00 Adalid Stephens [facility] HEPATITIS B SURFACE ANTIGEN 2019-08-11 04:46:00 Bob Stephens [facility] GALV ONLY - SYPHILIS IGG/IGM 2019-08-11 04:46:00 Bob Stephens [facility] PANEL IDENTIFICATION 2019-08-11 04:30:00 George Stephens [facility] RHO (D) IMMUNE GLOBULIN 2019-08-11 04:30:00 Carmen Stephenstop [facility] ABORH INVESTIGATION 2019-08-11 04:30:00 Chavez Stephens [facility] POCT URINALYSIS 2019-08-10 21:06:00 George Montero [facility] POCT URINALYSIS 2019-08-05 19:17:00 George Montero [facility] POCT URINALYSIS GLUCOSE & PROTEIN 2019-07-29 17:12:00 George Montero [facility] POCT URINALYSIS 2019-07-22 17:16:00 George Montero [facility] FIRST TRIMESTER ULTRASOUND 2019-02-03 15:25:00 Renetta Nuñez [facility] Encounters Start Date/Time End Date/Time Encounter Type Admission Type Attending Clinicians Care Facility Care Department Encounter ID Source 2022-09-06 15:15:00 2022-09-06 15:15:00 Outpatient SARAI GRIGSBY [facility] [id number] [facility] 2022-09-05 00:00:00 2022-09-05 00:00:00 Telephone George Montero [facility] [employer] [facility]NAL & [facility] 1.2.840.114 350.1.13.10 4.2.7.2.686 [id number] 107 [id number] [facility] 2022-07-03 14:30:00 2022-07-03 14:30:00 Outpatient BEVERLY MCGEE [facility] [id number] [facility] 2022-07-03 10:30:00 2022-07-03 10:45:00 Nurse Visit Visit, [facility] Nurse Beverly Lopez [facility] [employer] [facility] & CHILD [facility] 1.2.840.114 350.1.13.10 4.2.7.2.686 [id number] 107 [id number] [facility] 2022-07-03 10:30:00 2022-07-03 10:30:00 Outpatient R BEVERLY LOPEZ [facility] [id number] [facility] 2022-07-03 00:00:00 2022-07-03 00:00:00 Orders Only Doctor Unassigned, Booth [facility] 1.840.114 350.1.13.10 4.2.7.2.686 [id number] [facility] 2022-05-08 00:00:00 2022-05-08 00:00:00 Telephone Sarai Santiago [facility] [employer] [facility] & CHILD [facility] 1.840.114 350.1.13.10 4.2.7.2.686 [id number] 107 [id number] [facility] 2022-04-13 00:00:00 2022-04-13 00:00:00 Telephone George Montero [facility] [employer] [facility] & CHILD [facility] 1.2840.114 350.1.13.10 4.2.7.2.686 [id number] [facility] 2022-04-10 14:30:00 2022-04-10 15:42:15 Outpatient R GEORGE MONTERO [facility] [id number] [facility] 2022-04-10 14:30:00 2022-04-10 15:42:15 Office Visit George Montero [facility] [employer] [facility] & CHILD [facility] 1.2840.114 350.1.13.10 4.2.7.2.686 [id number] 107 [id number] [facility] 2022-04-10 13:30:00 2022-04-10 13:30:00 Outpatient R [facility] [id number] [facility] 2022-01-16 13:30:00 2022-01-16 13:58:33 [facility] [employer] [facility] CHILD [facility] 1.2.840.114 350.1.13.10 4.2.7.2.686 [id number] 107 [id number] [facility] 2022-01-16 13:30:00 2022-01-16 13:30:00 Outpatient R GEORGE MONTERO [facility] [id number] [facility] 2021-10-24 13:00:00 2021-10-24 13:18:46 Nurse [facility] [employer] [facility] 1..840.114 350.1.13.10 4.2.7.2.686 [id number] 107 [id number] [facility] 2021-10-24 13:00:00 2021-10-24 13:00:00 Outpatient R GEORGE MONTERO [facility] [id number] [facility] 2021-08-01 16:00:00 2021-08-01 16:15:00 [facility] [employer] [facility] 1..840.114 350.1.13.10 4.2.7.2.686 [id number] 107 [id number] [facility] 2021-08-01 16:00:00 2021-08-01 16:00:00 Outpatient R GEORGE MONTERO [facility] [id number] [facility] 2021-07-31 15:00:00 2021-07-31 15:00:00 Outpatient R [facility] [id number] [facility] 2021-06-23 14:43:07 2021-06-23 14:43:[address] [facility] [id number] [facility] 2021-06-23 00:00:00 2021-06-23 00:00:00 Orders Only Doctor Unassigned, Booth [facility] 1.2.840.114 350.1.13.10 4.2.7.2.686 [id number] [facility] 2021-05-08 15:02:12 2021-05-08 15:10:55 [facility] [employer] [facility] & CHILD [facility] 1..840.114 350.1.13.10 4.2.7.2.686 [id number] 107 [id number] [facility] 2021-05-08 15:00:00 2021-05-08 15:10:55 Outpatient GEORGE BHATIA [facility] [id number] [facility] 2021-05-08 00:00:00 2021-05-08 00:00:00 Orders Only Doctor Unassigned, Booth [facility] 1.2840.114 350.1.13.10 4.2.7.2.686 [id number] [facility] 2021-02-13 09:24:04 2021-02-13 10:16:44 Office Visit Sarai Santiago [facility] [employer] [facility] & CHILD [facility] 1..840.114 350.1.13.10 4.2.7.2.686 [id number] 107 [id number] [facility] 2021-02-13 09:15:00 2021-02-13 09:15:00 Outpatient SARAI GRIGSBY [facility] [id number] [facility] 2021-02-13 08:30:00 2021-02-13 08:30:00 Outpatient GEORGE BHATIA [facility] [id number] [facility] 2020-11-18 08:34:31 2020-11-18 08:54:54 Nurse Visit Visit, Sarai Suh [facility] [employer] [facility] & CHILD [facility] 1..840.114 350.1.13.10 4.2.7.2.686 [id number] 107 [id number] [facility] 2020-11-18 08:30:00 2020-11-18 08:30:00 Outpatient R SARAI SANTIAGO [facility] [id number] [facility] 2020-11-17 16:00:00 2020-11-17 16:00:00 Outpatient R [facility] [id number] [facility] 2020-08-26 15:50:08 2020-08-26 16:05:33 Nurse Visit Visit, SarahGeorge Llanos [facility] [employer] [facility] CHILD [facility] 1..840.114 350.1.13.10 4.2.7.2.686 [id number] 107 [id number] [facility] 2020-08-26 16:00:00 2020-08-26 16:00:00 Outpatient R [facility] [id number] [facility] 2020-06-29 00:00:00 2020-06-29 00:00:00 Telephone George Montero [facility] [employer] [facility] & CHILD [facility] 1..840.114 350.1.13.10 4.2.7.2.686 [id number] 107 [id number] [facility] 2020-05-31 15:38:44 2020-05-31 16:14:25 Nurse Visit Visit, Sarai Suh [facility] [employer] [facility] CHILD [facility] 1..840.114 350.1.13.10 4.2.7.2.686 [id number] 107 [id number] [facility] 2020-05-31 16:00:2020-05-31 16:00:00 Outpatient R SARAI SANTIAGO [facility] [id number] [facility] 2020-05-18 13:30:00 2020-05-18 13:30:00 Outpatient R [facility] [id number] [facility] 2020-05-04 15:00:00 2020-05-04 15:00:00 Outpatient R [facility] [id number] [facility] 2020-05-04 13:55:00 2020-05-04 14:10:00 Nurse Visit Visit, [facility] Nurse Sarai Santiago [facility] [employer] MATERNAL & CHILD [facility] 1..840.114 350.1.13.10 4.2.7.2.686 [id number] 107 [id number] [facility] 2020-05-04 14:00:00 2020-05-04 14:00:00 Outpatient R SARAI SANTIAGO [facility] [id number] [facility] 2020-04-19 10:23:54 2020-04-19 10:43:21 Office Visit George Montero [facility] [employer] [facility] & CHILD [facility] 1..840.114 350.1.13.10 4.2.7.2.686 [id number] 107 [id number] [facility] 2020-04-19 10:30:00 2020-04-19 10:30:00 Outpatient R GEORGE MONTERO [facility] [id number] [facility] 2020-03-08 14:30:00 2020-03-08 14:30:00 Outpatient R MONTEROGEORGE [facility] [id number] [facility] 2019-12-15 14:30:34 2019-12-15 14:45:34 Office Visit MonteroGeorge [facility] [employer] [facility] & CHILD [facility] 1..840.114 350.1.13.10 4.2.7.2.686 [id number] 107 [id number] [facility] 2019-12-15 14:30:00 2019-12-15 14:30:00 Outpatient GEORGE BHATIA [facility] [id number] [facility] 2019-12-15 00:00:00 2019-12-15 00:00:00 Orders Only Doctor Unassigned, Booth [facility] 1..114 350.1.13.10 4.2.7.2.686 [id number] [facility] 2019-09-29 12:49:29 2019-09-29 13:22:02 Nurse Visit Visit, Ang-Rmp Nurse George Montero [facility] [employer] [facility] & CHILD [facility] 1..114 350.1.13.10 4.2.7.2.686 [id number] 107 [id number] [facility] 2019-09-29 13:00:00 2019-09-29 13:00:00 Outpatient GEORGE BHATIA [facility] [id number] [facility] 2019-09-25 05:06:00 2019-09-25 05:06:00 Outpatient keyon G [facility] [id number] [facility] 2019-09-22 12:41:37 2019-09-22 13:13:56 Telemedici ne Visit George Montero [facility] 1..114 350.1.13.10 4.2.7.2.686 [id number] 107 [id number] [facility] 2019-09-22 13:00:00 2019-09-22 13:00:00 Outpatient GEORGE BHATIA [facility] [id number] [facility] 2019-09-01 09:13:08 2019-09-01 10:03:04 Routine Visit Sarai Santiago [facility] [employer] [facility] & CHILD [facility] 1.84.114 350.1.13.10 4.2.7.2.686 [id number] 107 [id number] [facility] 2019-09-01 09:00:00 2019-09-01 09:00:00 Outpatient R ARUNA SANTIAGOOLA [facility] [id number] [facility] 2019-08-18 14:08:42 2019-08-18 14:28:57 Nurse Visit Visit, [facility] Nurse MonteroGeorge [facility] [employer] MATERNAL & CHILD [facility] 1.2.840.114 350.1.13.10 4.2.7.2.686 [id number] [facility] 2019-08-10 19:56:00 2019-08-13 16:53:00 Hospital Encounter Marta iglesias [facility] 1.2.840.114 350.1.13.10 4.2.7.2.686 [id number] [facility] 2019-08-10 14:52:46 2019-08-11 08:17:14 Routine Visit George Montero [facility] [employer] [facility] & CHILD [facility] 1.2.840.114 350.1.13.10 4.2.7.2.686 [id number] 107 [id number] [facility] 2019-08-05 12:53:21 2019-08-05 13:43:48 Routine Visit George Montero [facility] [employer] [facility] & CHILD [facility] 1.2.840.114 350.1.13.10 4.2.7.2.686 [id number] 107 [id number] [facility] 2019-07-29 10:56:35 2019-07-29 11:21:13 Routine Visit George Montero [facility] [employer] [facility] & CHILD [facility] 1.2.840.114 350.1.13.10 4.2.7.2.686 [id number] 107 [id number] [facility] 2019-07-24 00:00:00 2019-07-24 00:00:00 Telephone George Montero [facility] [employer] [facility] & CHILD [facility] 1.2.840.114 350.1.13.10 4.2.7.2.686 [id number] 107 [id number] [facility] 2019-07-22 10:55:59 2019-07-22 12:56:07 Routine Visit George Montero [facility] [employer] [facility] & CHILD [facility] 1.2.840.114 350.1.13.10 4.2.7.2.686 [id number] 107 [id number] [facility] 2019-03-04 00:00:00 2019-03-04 00:00:00 Telephone George Montero [facility] [employer] [facility] & CHILD [facility] 1.2.840.114 350.1.13.10 4.2.7.2.686 [id number] 107 [id number] [facility] 2019-02-03 10:47:09 2019-02-03 11:16:19 Director Of Collections Visit Lab, [facility] 1.2.840.114 350.1.13.10 4.2.7.2.686 [id number] [facility] 2019-02-03 09:18:06 2019-02-03 10:42:48 Director Of Collections Visit 5, [facility] Us Room Marleny Orellana [facility] 1.2.840.114 350.1.13.10 4.2.7.2.686 [id number] [facility] 2019-02-03 00:00:00 2019-02-03 00:00:00 Case Management Cooper [facility] 1.2.840.114 350.1.13.10 4.2.7.2.686 [id number] [facility] Results Test Description Test Time Test Comments Results Result Co mments Source [facility] [id number] 20:08:00* Test Item Value Reference Range Interpretation Comme nts POCT PREG (test code = 1605) Negative On board controls acceptable with C Line (test code = 3574) Yes POCT PREG LOT # (test code = 3575) POCT PREG TEST DATE ( test code = 3576) [facility] [id number] 15:41:00* Test Item Value Reference Range Interpretation Comme nts POCT PREG (test code = 1605) Negative On board controls acceptable with C Line (test code = 3574) Yes POCT PREG LOT # (test code = 3575) POCT PREG TEST DATE ( test code = 3576) [facility] [id number] 15:41:00* Test Item Value Reference Range Interpretation Comme nts POCT PREG (test code = 1605) Negative On board controls acceptable with C Line (test code = 3574) Yes POCT PREG LOT # (test code = 3575) POCT PREG TEST DATE ( test code = 3576) [facility] [id number] 20:35:00* Test Item Value Reference Range Interpretation Comme nts POCT PREG (test code = 1605) Negative On board controls acceptable with C Line (test code = 3574) Yes POCT PREG LOT # (test code = 3575) POCT PREG TEST DATE ( test code [facility] 3576[id number] 20:35:00* Test Item Value Reference Range Interpretation Comme nts POCT PREG (test code = 1605) Negative On board controls acceptable with C Line (test code = 3574) Yes POCT PREG LOT # (test code = 3575) POCT PREG TEST DATE ( test code = 3576) [facility] [id number] 20:26:06* Test Item Value Reference Range Interpretation Comme nts ANTIBODY ID (test code = 245) Anti-A1 Performed at [facility] B Laboratory Services - [facility] Blood [address] [id number] Free: [phone] No. [id number] [facility] WITH [id number] 21:59:00* Test Item Value Reference Range Interpretation Comme nts WBC (test code = 6690-2) See_Comment [Automated incredibluea ge] The system which generated this result transmitted reference range: 4.30 - 11.10 10*3/?L. The reference range was not used to interpret this result as normal/abnormal. RBC (test code = 789-8) See_Comment [Automated incredibluea ge] The system which generated this result transmitted reference range: 3.93 - 5.25 10*6/?L. The reference range was not used to interpret this result as normal/abnormal. HGB (test code = 718-7) 8.5 g/dL 11.6-15 L HCT (test code = 4544-3) 28.6 % 35.7-45.2 L MCV (test code = 787-2) 71.5 fL 80.6-95.5 L MCH (test code = 785-6) 21.3 pg 25.9-32.8 L MCHC (test code = 786-4) 29.7 g/dL 31.6-35.1 L RDW-SD (test code = 69693-1) 47.5 fL 39-49.9 RDW-CV (test code = 788-0) 18.6 % 12-15.5 H PLT (test code = 777-3) See_Comment [Automated incredibluea ge] The system which generated this result transmitted reference range: 166 - 358 10*3/?L. The reference range was not used to interpret this result as normal/abnormal. MPV (test code = 09211-2) 10.6 fL 9.5-12.9 IPF % (test code = 1052841824) 4.5 % 1.3-7.7 Platelet count measured by fluorescence method. NRBC/100 WBC (test code = 3310391377) See_Comment [Automated Myla ssage] The system which generated this result transmitted reference range: 0.0 - 10.0 /100 WBCs. The reference range was not used to interpret this result as normal/abnormal. NRBC x10^3 (test code = 5935041196) <0.01 See_Comment [Automated messa ge] The system which generated this result transmitted reference range: 10*3/?L. The reference range was not used to interpret this result as normal/abnormal. GRAN MAT (NEUT) % (test code = 770-8) 80.2 % IMM GRAN % (test code = 0302277154) 0.50 % LYMPH % (test code = 736-9) 10.2 % MONO % (test code = 5905-5) 8.0 % EOS % (test code = 713-8) 0.8 % BASO % (test code = 706-2) 0.3 % GRAN MAT x10^3(ANC) (test code = 9929772160) 8.89 10*3/uL 1.88-7.09 H IMM GRAN x10^3 (test code = 0503703994) 0.06 10*3/uL 0-0.06 LYMPH x10^3 (test code = 731-0) 1.13 10*3/uL 1.32-3.29 L MONO x10^3 (test code = 742-7) 0.89 10*3/uL 0.33-0.92 EOS x10^3 (test code = 711-2) 0.09 10*3/uL 0.03-0.39 BASO x10^3 (test code = 704-7) 0.03 10*3/uL 0.01-0.07 Lab Interpretation (test code = 33706-3) [facility] [id number] 15:56:00* Test Item Value Reference Range Interpretation Comme [facility] Syphilis IgG/IgM (test code = 97334-4) Non-reactive Non-reactive ARCHIE (test code = ARCHIE) Non-reactive - No serologic evidence of T. pallidum infection. Cannot exclude incubating or early syphilis. Submit a second specimen in 2-4 weeks if syphilis is clinically suspected. Equivocal - Further testing to follow. Reactive - Further testing to follow. Lab Interpretation (test code = 09096-7) Normal [facility] IMMUNE [id number] 12:40:44* Test Item Value Reference Range Interpretation Comme nts RHIG CANDIDATE? (test code = 5055) No- see comment Patient is not a candidate for RhIg- Patient is Rh Positive.Performed at [facility] Laboratory Services - [facility] Blood [address] [address]Nfqg Free: [phone] No. [id number] [facility] Branch[facility] Cord [id number] 09:07:00* Test Item Value Reference Range Interpretation Comme nts VENOUS BASE EXCESS, CORD (test code = 4952456834) mEq/L VENOUS PH, CORD (test code = 4222549173) 7.25-7.45 VENOUS PC02, CORD (test code = 1012308661) See_Comment H [Automated me ssage] The system which generated this result transmitted reference range: 27 - 49 mmHg. The reference range was not used to interpret this result as normal/abnormal. VENOUS PO2, CORD (test code = 4527289690) See_Comment [Automated me ssage] The system which generated this result transmitted reference range: 17 - 41 mmHg. The reference range was not used to interpret this result as normal/abnormal. VENOUS BICARBONATE, CORD (test code = 0537836110) See_Comment [Automa orquidea message] The system which generated this result transmitted reference range: 12 - 29 mEq/L. The reference range was not used to interpret this result as normal/abnormal. Lab Interpretation (test code = 89279-0) [facility]normal [facility] BranchAr[facility] Cord [id number] 09:05:00* Test Item Value Reference Range Interpretation Comme nts BASE EXCESS, CORD (test code = 0983117237) mEq/L AC PH, CORD (BEAKER) (test code = 4645863008) 7.18-7.38 L PC02, CORD (test code = 9123115336) See_Comment [Automated messa ge] The system which generated this result transmitted reference range: 32 - 66 mmHg. The reference range was not used to interpret this result as normal/abnormal. PO2, CORD (test code = 3651316846) <10 See_Comment L [Automated messa ge] The system which generated this result transmitted reference range: 10 - 30 mmHg. The reference range was not used to interpret this result as normal/abnormal. BICARBONATE, CORD (test code = 6512666480) See_Comment [Automated me ssage] The system which generated this result transmitted reference range: 17 - 27 mEq/L. The reference range was not used to interpret this result as normal/abnormal. Lab Interpretation (test code = 01273-7) [facility]normal [facility] Center[facility]OR[facility] INVESTIGATION [id number] 07:40:26* Test Item Value Reference Range Interpretation Comme nts ABO & RH (test code = 20) A Positive RH 0; A2 cell 0; A subgroupPerformed at [facility] - [facility] Blood [address] [address]Edcz Free: [phone] No. [id number] [facility] CenterHepatitis B Surface [id number] 06:00:00 * Test Item Value Reference Range Interpretation Comme nts HBsAg Semi-Quantitative (stephanie t code = 5195-3) Negative Negative [facility] CenterCB WITH [id number] 05:02:00* Test Item Value Reference Range Interpretation Comme nts WBC (test code = 6690-2) See_Comment H [Automated messa ge] The system which generated this result transmitted reference range: 4.30 - 11.10 10*3/?L. The reference range was not used to interpret this result as normal/abnormal. RBC (test code = 789-8) See_Comment [Automated messa ge] The system which generated this result transmitted reference range: 3.93 - 5.25 10*6/?L. The reference range was not used to interpret this result as normal/abnormal. HGB (test code = 718-7) 9.3 g/dL 11.6-15 L HCT (test code = 4544-3) 31.1 % 35.7-45.2 L MCV (test code = 787-2) 71.8 fL 80.6-95.5 L MCH (test code = 785-6) 21.5 pg 25.9-32.8 L MCHC (test code = 786-4) 29.9 g/dL 31.6-35.1 L RDW-SD (test code = 56047-5) 47.4 fL 39-49.9 RDW-CV (test code = 788-0) 18.6 % 12-15.5 H PLT (test code = 777-3) See_Comment [Automated messa ge] The system which generated this result transmitted reference range: 166 - 358 10*3/?L. The reference range was not used to interpret this result as normal/abnormal. MPV (test code = 05760-7) 9.6 fL 9.5-12.9 NRBC/100 WBC (test code = 0535522102) See_Comment [Automated Myla ssage] The system which generated this result transmitted reference range: 0.0 - 10.0 /100 WBCs. The reference range was not used to interpret this result as normal/abnormal. NRBC x10^3 (test code = 3862236264) <0.01 See_Comment [Automated messa ge] The system which generated this result transmitted reference range: 10*3/?L. The reference range was not used to interpret this result as normal/abnormal. GRAN MAT (NEUT) % (test code = 770-8) 80.9 % IMM GRAN % (test code = 6635054807) 0.50 % LYMPH % (test code = 736-9) 12.3 % MONO % (test code = 5905-5) 5.7 % EOS % (test code = 713-8) 0.4 % BASO % (test code = 706-2) 0.2 % GRAN MAT x10^3(ANC) (test code = 2042354967) 9.17 10*3/uL 1.88-7.09 H IMM GRAN x10^3 (test code = 5878704240) 0.06 10*3/uL 0-0.06 LYMPH x10^3 (test code = 731-0) 1.39 10*3/uL 1.32-3.29 MONO x10^3 (test code = 742-7) 0.65 10*3/uL 0.33-0.92 EOS x10^3 (test code = 711-2) 0.05 10*3/uL 0.03-0.39 BASO x10^3 (test code = 704-7) <0.03 0.01-0.07 Lab Interpretation (test code = 31734-2) Abnormal [facility] URINALYSIS W SPECIFIC [id number] 21:07:00* Test Item Value Reference Range Interpretation Comme nts POCT U SP GRAV (test code = 3255) . 1.005-1.025 POCT PH U (test code = 3254) . 5-8 POCT U LEUK EST (test code = 3263) . Negative - Negative POCT U NIT (test code = 3262) . Negative - Negati ve POCT U PROT (test code = 3259) trace Negative - Negat kay POCT U GLU (test code = 3256) neg Negative - Negati ve POCT U KETONE (test code = 3258) . Negative - Neg ative POCT U UROBILI (test code = 3260) . 0.2-1 POCT U BILI (test code = 3261) . Negative - Negat kay POCT U BLD (test code = 3257) . Negative - Negati ve POCT U COLOR (test code = 3266) . POCT U APPEAR (test code = 3267) . Lab Interpretation (test cod e = 16948-4) Abnormal [facility] URINALYSIS W SPECIFIC [id number] 21:07:00* Test Item Value Reference Range Interpretation Comme nts POCT U SP GRAV (test code = 3255) . 1.005-1.025 POCT PH U (test code = 3254) . 5-8 POCT U LEUK EST (test code = 3263) . Negative - Negative POCT U NIT (test code = 3262) . Negative - Negati ve POCT U PROT (test code = 3259) trace Negative - Negat kay POCT U GLU (test code = 3256) neg Negative - Negati ve POCT U KETONE (test code = 3258) . Negative - Neg ative POCT U UROBILI (test code = 3260) . 0.2-1 POCT U BILI (test code = 3261) . Negative - Negat aky POCT U BLD (test code = 3257) . Negative - Negati ve POCT U COLOR (test code = 3266) . POCT U APPEAR (test code = 3267) . Lab Interpretation (test cod e = 03262-6) Abnormal [facility] URINALYSIS W SPECIFIC [id number] 21:07:00* Test Item Value Reference Range Interpretation Comme nts POCT U SP GRAV (test code = 3255) . 1.005-1.025 POCT PH U (test code = 3254) . 5-8 POCT U LEUK EST (test code = 3263) . Negative - Negative POCT U NIT (test code = 3262) . Negative - Negati ve POCT U PROT (test code = 3259) trace Negative - Negat kay POCT U GLU (test code = 3256) neg Negative - Negati ve POCT U KETONE (test code = 3258) . Negative - Neg ative POCT U UROBILI (test code = 3260) . 0.2-1 POCT U BILI (test code = 3261) . Negative - Negat kay POCT U BLD (test code = 3257) . Negative - Negati ve POCT U COLOR (test code = 3266) . POCT U APPEAR (test code = 3267) . Lab Interpretation (test cod e = 41308-4) Abnormal [facility] URINALYSIS W SPECIFIC [id number] 19:17:00* Test Item Value Reference Range Interpretation Comme nts POCT U SP GRAV (test code = 3255) . 1.005-1.025 POCT PH U (test code = 3254) . 5-8 POCT U LEUK EST (test code = 3263) . Negative - Negative POCT U NIT (test code = 3262) . Negative - Negati ve POCT U PROT (test code = 3259) trace Negative - Negat kay POCT U GLU (test code = 3256) neg Negative - Negati ve POCT U KETONE (test code = 3258) . Negative - Neg ative POCT U UROBILI (test code = 3260) . 0.2-1 POCT U BILI (test code = 3261) . Negative - Negat kay POCT U BLD (test code = 3257) . Negative - Negati ve POCT U COLOR (test code = 3266) . POCT U APPEAR (test code = 3267) . Lab Interpretation (test cod e = 82477-3) Abnormal [facility] URINALYSIS GLUCOSE & [id number] 17:12:00* Test Item Value Reference Range Interpretation Comme nts POCT U PROT (test code = 3259) trace Negative - Negat kay POCT U GLU (test code = 3256) neg Negative - Negati ve Lab Interpretation (test cod e = 83847-2) Abnormal [facility] URINALYSIS GLUCOSE & [id number] 17:12:00* Test Item Value Reference Range Interpretation Comme nts POCT U PROT (test code = 3259) trace Negative - Negat kay POCT U GLU (test code = 3256) neg Negative - Negati ve Lab Interpretation (test cod e = 76497-5) Abnormal [facility] URINALYSIS W SPECIFIC [id number] 17:16:00* Test Item Value Reference Range Interpretation Comme nts POCT U SP GRAV (test code = 3255) . 1.005-1.025 POCT PH U (test code = 3254) . 5-8 POCT U LEUK EST (test code = 3263) . Negative - Negative POCT U NIT (test code = 3262) . Negative - Negati ve POCT U PROT (test code = 3259) trace Negative - Negat kay POCT U GLU (test code = 3256) negative Negative - Negati ve POCT U KETONE (test code = 3258) . Negative - Neg ative POCT U UROBILI (test code = 3260) . 0.2-1 POCT U BILI (test code = 3261) . Negative - Negat kay POCT U BLD (test code = 3257) . Negative - Negati ve POCT U COLOR (test code = 3266) POCT U APPEAR (test code = 3267) [facility] URINALYSIS W SPECIFIC [id number] 17:16:00* Test Item Value Reference Range Interpretation Comme nts POCT U SP GRAV (test code = 3255) . 1.005-1.025 POCT PH U (test code = 3254) . 5-8 POCT U LEUK EST (test code = 3263) . Negative - Negative POCT U NIT (test code = 3262) . Negative - Negati ve POCT U PROT (test code = 3259) trace Negative - Negat kay POCT U GLU (test code = 3256) negative Negative - Negati ve POCT U KETONE (test code = 3258) . Negative - Neg ative POCT U UROBILI (test code = 3260) . 0.2-1 POCT U BILI (test code = 3261) . Negative - Negat kay POCT U BLD (test code = 3257) . Negative - Negati ve POCT U COLOR (test code = 3266) POCT U APPEAR (test code = 3267) [facility] [id number] 17:16:00* Test Item Value Reference Range Interpretation Comme nts POCT U SP GRAV (test code = 3255) . 1.005-1.025 POCT PH U (test code = 3254) . 5-8 POCT U LEUK EST (test code = 3263) . Negative - Negative POCT U NIT (test code = 3262) . Negative - Negati ve POCT U PROT (test code = 3259) trace Negative - Negat kay POCT U GLU (test code = 3256) negative Negative - Negati ve POCT U KETONE (test code = 3258) . Negative - Neg ative POCT U UROBILI (test code = 3260) . 0.2-1 POCT U BILI (test code = 3261) . Negative - Negat kay POCT U BLD (test code = 3257) . Negative - Negati ve POCT U COLOR (test code = 3266) POCT U APPEAR (test code = 3267) [facility]
[2023-07-14 22:22] LABS: Specific Gravity 1.023 (1.005-1.030)
--- NOTE | 2023-07-14 22:45 | ER ---
Nurse's Notes [facility] Name: Karen Pérez Age: 27 yrs Sex: Female : 1995 Arrival Date: 07/14/2023 Time: 21:13 Bed 7 Private MD: Diagnosis: Dental caries, unspecified;Tooth # 17 Dental cavity with pulpitis and dental pain Presentation: 07/14 21:20 Chief complaint: Patient states: tooth pain on left side. Pt states that she has pain cm10 to the top and bottom back molars. Pt also reports that she is having a headache. Coronavirus screen: Vaccine status: Patient reports being unvaccinated. Client denies travel out of the [place] in the last 14 days. Ebola Screen: Patient denies travel to an Ebola-affected area in the 21 days before illness onset. No symptoms or risks identified at this time. Initial Sepsis Screen: Does the patient meet any 2 criteria? No. Patient's initial sepsis screen is negative. Does the patient have a suspected source of infection? No. Patient's initial sepsis screen is negative. Risk Assessment: Do you want to hurt yourself or someone else? Patient reports no desire to harm self or others. Onset of symptoms was July 14, 2023. 21:20 Method Of Arrival: Ambulatory cm10 21:20 Acuity: ANNA 4 cm10 Triage Assessment: 21:21 General: Appears in no apparent distress. comfortable, Behavior is calm, cooperative. cm10 Pain: Complains of pain in upper left third molar and lower left third molar. EENT: Dental caries noted in upper left third molar (#16) and lower left third molar (#17) Reports pain in upper left third molar and lower left third molar. Neuro: No deficits noted. Level of Consciousness is awake, alert, obeys commands, Oriented to person, place, time, situation, Reports headache. Cardiovascular: No deficits noted. Patient's skin is warm and dry. Respiratory: No deficits noted. Airway is patent Respiratory effort is even, unlabored, Respiratory pattern is regular, symmetrical. GI: No deficits noted. No signs and/or symptoms were reported involving the gastrointestinal system. : No deficits noted. No signs and/or symptoms were reported regarding the genitourinary system. Derm: No deficits noted. No signs and/or symptoms reported regarding the dermatologic system. Skin is intact, Skin is pink, warm \T\ dry. Musculoskeletal: No deficits noted. No signs and/or symptoms reported regarding the musculoskeletal system. Range of motion: intact in all extremities. 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 - Social history:: Smoking status: Patient denies any tobacco usage or history of. - Family history:: not pertinent. Screenin:23 [facility] ED Fall Risk Assessment (Adult) History of falling in the last 3 months, cm10 including since admission No falls in past 3 months (0 pts) Confusion or Disorientation No (0 pts) Intoxicated or Sedated No (0 pts) Impaired Gait No (0 pts) Mobility Assist Device Used No (0 pt) Altered Elimination No (0 pt) Score/Fall Risk Level 0 - 2 = Low Risk Oriented to surroundings, Maintained a safe environment, Hourly rounding (assess needs \T\ fall precautionary measures) done. Abuse screen: Denies threats or abuse. Denies injuries from another. Nutritional screening: No deficits noted. Tuberculosis screening: No symptoms or risk factors identified. Assessment: 22:33 General: Appears comfortable. Neuro: Avendaño Agitation-Sedation Scale (RASS): 0 - nw1 Alert and Calm Level of Consciousness is awake, alert, Oriented to person, place, time. Cardiovascular: Reports None Denies chest pain, diaphoresis, fatigue, lightheadedness, nausea, palpitations, shortness of breath, syncope, vomiting. Respiratory: No deficits noted. GI: No deficits noted. No signs and/or symptoms were reported involving the gastrointestinal system. : No deficits noted. No signs and/or symptoms were reported regarding the genitourinary system. Derm: No deficits noted. No signs and/or symptoms reported regarding the dermatologic system. Musculoskeletal: No deficits noted. No signs and/or symptoms reported regarding the musculoskeletal system. Vital Signs: 21:20 BP 125 / 85; Pulse 67; Resp 18; Temp 98.1; Pulse Ox 100% on R/A; Weight 96.62 kg; cm10 Height 5 ft. 6 in. ; Pain 9/10; 21:20 Body Mass Index 34.38 (96.62 kg, 167.64 cm) cm10 21:20 Pain Scale: Adult cm10 Saima Coma Score: 22:33 Eye Response: spontaneous(4). Motor Response: obeys commands(6). Verbal Response: nw1 oriented(5). Total: 15. 22:48 Eye Response: spontaneous(4). Motor Response: obeys commands(6). Verbal Response: sp4 oriented(5). Total: 15. ED Course: 21:14 Patient arrived in ED. jj6 21:21 Triage completed. cm10 21:21 Arm band placed on Patient placed in an exam room, on a stretcher. cm10 21:23 Patient has correct armband on for positive identification. Bed in low position. Call cm10 light in reach. Provided Education on: ER process and procedures. 21:23 No provider procedures requiring assistance completed. Patient did not have IV access cm10 during this emergency room visit. 21:24 Reese Davis MD is Attending Physician. sp4 21:51 Cecilia Gutierrez, KEVIN is Primary Nurse. nw1 22:22 Test, Urine Sent. nw1 22:33 Door closed. nw1 22:42 Dax Kang DDS is Referral Physician. sp4 Administered Medications: 22:31 Drug: Rocephin (cefTRIAXone) IM 1 grams IM once {Note: given with lidocaine 1% 2ml.} nw1 Route: IM; Site: left gluteus; 22:31 Drug: Promethazine PO 25 mg PO once Route: PO; nw1 22:32 Drug: Acetaminophen-Codeine PO (300 mg-30 mg) 2 tabs PO once; RASS on ADMIN: Combtv4, nw1 Very Agttd3, Agttd2, Rstlss1, AlertClm0, Drwsy-1, Lt Sdtn-2, Mod Sdtn-3, Dp Sdtn-4, UnArsble-5 Route: PO; 22:32 Drug: Ketorolac IM 60 mg IM once Route: IM; Site: right gluteus; nw1 22:44 Drug: Lidocaine Infiltration (1 %) 2 ml Infiltration once {Note: with rocephin.} Route: nw1 Infiltration; Medication: 21:23 VIS not applicable for this client. cm10 Outcome: 22:45 Discharge ordered by . eldon 23:11 Discharged to home ambulatory, nw1 23:11 Condition: stable 23:11 Discharge instructions given to patient, Instructed on discharge instructions, follow up and referral plans. medication usage, Demonstrated understanding of instructions, follow-up care, medications, Prescriptions given X 5 23:12 Patient left the ED. nw1 Signatures: Blanca Galindo jj6 Reese Davis MD MD sp4 Celeste Garcia RN RN cm10 Cecilia Gutierrez RN RN nw1 Corrections: (The following items were deleted from the chart) 21:22 21:20 Chief complaint: Patient states: tooth pain on left side. Pt states that she has cm10 pain to the top and bottom back molars. cm10 22:32 22:31 Rocephin (cefTRIAXone) IM 1 grams IM in left gluteus nw1 nw1
--- NOTE | 2023-07-14 22:45 | EDPHYS ---
Physician Documentation [facility] Name: Karen Pérez Age: 27 yrs Sex: Female : 1995 Arrival Date: 07/14/2023 Time: 21:13 Bed 7 Private MD: ED Physician Reese Davis HPI: 07/14 21:24 This 27 yrs old Black Female presents to ER via Ambulatory with complaints of sp4 Toothache, Headache. 22:48 27 year old female presents with complaint of left lower dental pain at the site of the sp4 [place] tooth # 17. There is cavity and pain started yesterday as reported by the patient. . 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 - Social history:: Smoking status: Patient denies any tobacco usage or history of. - Family history:: not pertinent. ROS: 22:48 Constitutional: Negative for fever, chills, and weight loss, Positive left lower sp4 dental pain 22:48 All other systems are negative, Exam: 22:48 Constitutional: This is a well developed, well nourished patient who is awake, alert, sp4 and in no acute distress. Head/Face: Normocephalic, atraumatic. Eyes: Pupils equal round and reactive to light, extra-ocular motions intact. Lids and lashes normal. Conjunctiva and sclera are not injected. Cornea within normal limits. Periorbital areas with no swelling, redness, or edema. ENT: Nares patent. No nasal discharge, no septal abnormalities noted. Tympanic membranes are normal and external auditory canals are clear. Oropharynx with no redness, swelling, or masses, exudates, or evidence of obstruction, uvula midline. Mucous membranes moist. There is tooth # 17 partial eruption and there is significant oclusal surface cavity with signs of pulpitis without gingival abscess. Neck: Trachea midline, no thyromegaly or masses palpated, and no cervical lymphadenopathy. Supple, full range of motion without nuchal rigidity, or vertebral point tenderness. Chest/axilla: Normal chest wall appearance and motion. Nontender with no deformity. No lesions are appreciated. Cardiovascular: Regular rate and rhythm with a normal S1 and S2. No gallops, murmurs, or rubs. Normal PMI, no JVD. No pulse deficits. Respiratory: Lungs have equal breath sounds bilaterally, clear to auscultation and percussion. No rales, rhonchi or wheezes noted. No increased work of breathing, no retractions or nasal flaring. Abdomen/GI: Soft, non-tender, with normal bowel sounds. No distension or tympany. No guarding or rebound. No evidence of tenderness throughout. Back: No spinal tenderness. No costovertebral tenderness. There is sacral decubitus ulcer that is covered by the wound VAC. Skin: Warm, dry with normal turgor. Normal color with no rashes, no lesions, and no evidence of cellulitis. MS/ Extremity: Pulses equal, no cyanosis. Neurovascular intact. Full, normal range of motion. Neuro: Awake and alert, GCS 15, oriented to person, place, time, and situation. Cranial nerves II-XII grossly intact. Motor strength 5/5 in all extremities. Sensory grossly intact. Psych: Awake, alert, with orientation to person, place and time. Behavior, mood, and affect are within normal limits Vital Signs: 21:20 BP 125 / 85; Pulse 67; Resp 18; Temp 98.1; Pulse Ox 100% on R/A; Weight 96.62 kg; cm10 Height 5 ft. 6 in. ; Pain 9/10; 21:20 Body Mass Index 34.38 (96.62 kg, 167.64 cm) cm10 21:20 Pain Scale: Adult cm10 Saima Coma Score: 22:33 Eye Response: spontaneous(4). Motor Response: obeys commands(6). Verbal Response: nw1 oriented(5). Total: 15. 22:48 Eye Response: spontaneous(4). Motor Response: obeys commands(6). Verbal Response: sp4 oriented(5). Total: 15. MDM: 21:36 Patient medically screened. sp4 22:48 Differential diagnosis: dental caries, gingivitis, dental abscess, pericoronitis, sp4 aphthous ulcers, gingivostomatitis. Data reviewed: vital signs, nurses notes, old medical records. ED course: Will refer to Dr. Kang with [facility] for wisdom tooth # 17 extraction . 07/14 21:33 Order name: Test, Urine; Complete Time: 22:41 sp4 Administered Medications: 22:31 Drug: Rocephin (cefTRIAXone) IM 1 grams IM once {Note: given with lidocaine 1% 2ml.} nw1 Route: IM; Site: left gluteus; 22:31 Drug: Promethazine PO 25 mg PO once Route: PO; nw1 22:32 Drug: Acetaminophen-Codeine PO (300 mg-30 mg) 2 tabs PO once; RASS on ADMIN: Combtv4, nw1 Very Agttd3, Agttd2, Rstlss1, AlertClm0, Drwsy-1, Lt Sdtn-2, Mod Sdtn-3, Dp Sdtn-4, UnArsble-5 Route: PO; 22:32 Drug: Ketorolac IM 60 mg IM once Route: IM; Site: right gluteus; nw1 22:44 Drug: Lidocaine Infiltration (1 %) 2 ml Infiltration once {Note: with rocephin.} Route: nw1 Infiltration; Disposition Summary: 07/14/23 22:45 Discharge Ordered Notes: Location: Home sp4 Problem: new sp4 Symptoms: have improved sp4 Condition: Stable sp4 Diagnosis - Dental caries, unspecified sp4 - Tooth # 17 Dental cavity with pulpitis and dental pain sp4 Followup: sp4 - With: Dax Kang DDS - When: 7 - 10 days - Reason: Recheck today's complaints Discharge Instructions: - Discharge Summary Sheet sp4 - Dental Caries, Adult sp4 Forms: - Patient Portal Instructions sp4 Prescriptions: - Cephalexin 500 mg Oral Capsule - take 1 capsule ORAL route every 8 hours for 10 days; 30 capsule; Refills: 0, sp4 Product Selection Permitted - Ibuprofen 800 mg Oral Tablet - take 1 tablet ORAL route every 8 hours As needed take with food; 30 tablet; sp4 Refills: 0, Product Selection Permitted - Tramadol 50 mg Oral tablet - take 1 tablet ORAL route every 8 hours as needed; 20 tablet; Refills: 0, sp4 Product Selection Permitted - promethazine 25 mg Oral tablet - take 1 tablet ORAL route every 6 hours As needed; 30 tablet; Refills: 0, sp4 Product Selection Permitted Signatures: Dispatcher [employer] KRISTAN Davis Reese, MD MD sp4 Celeste Garcia RN RN cm10 Cecilia Gutierrez RN RN nw1
[2023-07-15 02:03] VITALS: BP 125/85; TEMP 98.1; O2SAT 100
== END ==
LOC: ER 21:13
DX: K02.9 Dental caries, unspecified (principal); K04.01 Reversible pulpitis; R51.9 Headache, unspecified
CPT/HCPCS: 81025; 96372; 99284; J0696; Q0169

== ENCOUNTER 2025-04-06 11:30 | Emergency (ER) | payer BC ==
[2025-04-06 13:10] LABS: Urine Crystals Unidentified Few /HPF (None Seen); Urine Culture Reflex Order NOT NEEDED; Urine Microscopic Reflex YN ORDER UMIC; Urine WBC Clump Rare /HPF (None Seen); Urine Yeast (Budding) Occasional /HPF (None Seen)
--- NOTE | 2025-04-06 14:03 | ER ---
Nurse's Notes [facility] Name: Karen Pérez Age: 29 yrs Sex: Female : 1995 Arrival Date: 04/06/2025 Time: 11:30 Bed 11 Private MD: Diagnosis: Candidiasis of vulva and vagina Presentation: 04/06 11:42 Chief complaint: Patient states: vaginal itching that started yesterday. Coronavirus me1 screen: At this time, the client does not indicate any symptoms associated with coronavirus-19. Ebola Screen: No symptoms or risks identified at this time. Initial Sepsis Screen: Does the patient meet any 2 criteria? No. Patient's initial sepsis screen is negative. Does the patient have a suspected source of infection? No. Patient's initial sepsis screen is negative. Risk Assessment: Do you want to hurt yourself or someone else? Patient reports no desire to harm self or others. Onset of symptoms was April 05, 2025. 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 - Infectious Disease History:: Denies. - Social history:: Smoking status: Patient denies any tobacco usage or history of. Assessment: 14:23 General: Appears in no apparent distress. comfortable, Behavior is calm, cooperative. ss Neuro: Level of Consciousness is awake, alert, obeys commands. Respiratory: Airway is patent Respiratory effort is even, unlabored, Respiratory pattern is regular, symmetrical. : Denies burning with urination, urinary frequency. : Reports vaginal itching. Derm: Skin is intact, is healthy with good turgor, Skin is dry, Skin is pink, warm \T\ dry. normal. Vital Signs: 11:42 BP 122 / 81; Pulse 77; Resp 16; Temp 98.2; Pulse Ox 100% ; Weight 104.33 kg; Height 5 me1 ft. 6 in. ; Pain 0/10; 11:42 Body Mass Index 37.12 (104.33 kg, 167.64 cm) me1 11:42 Pain Scale: Adult me1 ED Course: 11:32 Patient arrived in ED. mr 11:38 Ginny Medley FNP-C is [facility]. kb 11:38 Nicolas Nettles MD is Attending Physician. kb 11:45 Triage completed. me1 11:45 Arm band placed on Patient placed in waiting room. me1 14:10 Jasmin Carbone, RN is Primary Nurse. ss 14:22 No provider procedures requiring assistance completed. Patient did not have IV access ss during this emergency room visit. Administered Medications: 14:15 Drug: Fluconazole PO 100 mg PO once Route: PO; ss 14:15 Follow up: Response: No adverse reaction; Medication administered at discharge. ss Medication: 14:23 VIS not applicable for this client. ss Outcome: 14:03 Discharge ordered by . kb 14:22 Discharged to home ambulatory, ss 14:22 Condition: good 14:22 Discharge instructions given to patient, Instructed on discharge instructions, follow up and referral plans. Demonstrated understanding of instructions, follow-up care, 14:24 Patient left the ED. ss Signatures: Ginny Medley FNP-C FNP-CkMarleny Faye, Reg Reg mr Jasmin Carbone, RN RN Ame Austin RN RN me1
--- NOTE | 2025-04-06 14:03 | EDPHYS ---
Physician Documentation [facility] Name: Karen Pérez Age: 29 yrs Sex: Female : 1995 Arrival Date: 04/06/2025 Time: 11:30 Bed 11 Private MD: ED Physician Nicolas Nettles HPI: 04/06 14:01 This 29 yrs old Black Female presents to ER via Ambulatory with complaints of Vaginal kb Itching. 14:01 Pt is a 29 year old female who presents for vaginal itching that started yesterday. kb denies dysuria, vaginal discharge, fever. States she recently took abx for a toothache. 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 - Infectious Disease History:: Denies. - Social history:: Smoking status: Patient denies any tobacco usage or history of. ROS: 13:27 Constitutional: As per HPI kb Exam: 13:29 Constitutional: This is a well developed, well nourished patient who is awake, alert, kb and in no acute distress. Head/Face: Normocephalic, atraumatic. ENT: Moist Mucous membranes Cardiovascular: Regular rate Respiratory: Respirations even and unlabored. No increased work of breathing. Talking in full sentences Skin: Warm, dry with normal turgor. Normal color. MS/ Extremity: Pulses equal, no cyanosis. Neurovascular intact. Full, normal range of motion. Neuro: Awake and alert, GCS 15, oriented to person, place, time, and situation. 14:00 : Pelvic Exam: External exam: erythema is noted, Vital Signs: 11:42 BP 122 / 81; Pulse 77; Resp 16; Temp 98.2; Pulse Ox 100% ; Weight 104.33 kg; Height 5 me1 ft. 6 in. ; Pain 0/10; 11:42 Body Mass Index 37.12 (104.33 kg, 167.64 cm) me1 11:42 Pain Scale: Adult me1 MDM: 11:38 Medical Screening Exam initiated kb 14:00 Data reviewed: vital signs, nurses notes. kb 14:00 Differential diagnosis: urinary tract infection, vaginosis, candidiasis. Counseling: I kb had a detailed discussion with the patient and/or guardian regarding the historical points, exam findings, and any diagnostic results supporting the discharge/admit diagnosis, lab results, the need for outpatient follow up, an OB/Gyne specialist, to return to the emergency department if symptoms worsen or persist or if there are any questions or concerns that arise at home. 04/06 11:44 Order name: UA Rfx Fabrizio Cult if indicated; Complete Time: 13:11 kb 04/06 11:44 Order name: Test, Urine; Complete Time: 13:11 kb 04/06 11:44 Order name: Wet Prep; Complete Time: 13:52 kb Administered Medications: 14:15 Drug: Fluconazole PO 100 mg PO once Route: PO; 14:15 Follow up: Response: No adverse reaction; Medication administered at discharge. ss Disposition Summary: 04/06/25 14:03 Discharge Ordered Notes: Location: Home kb Condition: Stable kb Diagnosis - Candidiasis of vulva and vagina kb Followup: kb - With: Emergency Department - When: As needed - Reason: Worsening of condition Followup: kb - With: Private Physician - When: 2 - 3 days - Reason: Recheck today's complaints, Continuance of care, Re-evaluation by your physician Discharge Instructions: - Discharge Summary Sheet kb - Vaginal Yeast Infection, Adult kb Forms: - Medication Reconciliation Form kb - Antibiotic Education kb - Prescription Opioid Use kb - Patient Portal Instructions kb - Leadership Thank You Letter kb - Work release form Signatures: Dispatcher [employer] Ginny June FNP-C FNP-Jasmin Guillen, RN RN Ame Austin, RN RN me1
[2025-04-06] MEDS ORDERED: FLUCONAZOLE 100 MG TAB ONE (14:04)
[2025-04-06 14:28] VITALS: BP 122/81; TEMP 98.2; O2SAT 100
== END 2025-04-06 14:24 | disposition home or self-care (01) ==
LOC: ER 11:30
DX: B37.31 Acute candidiasis of vulva and vagina (principal)
CPT/HCPCS: 81001; 81025; 87210; 99283